=== PATIENT | female | born 2000 | race Caucasian/White ===

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

== ENCOUNTER 2018-02-02 13:25 | Emergency (ER) | payer SELFPAY ==
[~2018-02-02] VITALS: Ht 165.1 cm; Wt 72.6 kg
[~2018-02-02 13:25] MED LIST changes: +ONDA4TAB8 SL
--- NOTE | 2018-02-02 13:46 | ED GU-Female ---
General Chief Complaint: -Female Stated Complaint: FEELS LIKE SHE HAS TO URINTATE ALL THE TIME Source: patient Exam Limitations: no limitations History of Present Illness Date Seen by Provider: Feb 02, 2018 Time Seen by Provider: 13:44 Initial Comments To ER with reports of feeling as though she needs to urinate all the time but being unable to urinate much. This is been ongoing for 3-5 days. She was exposed to both gonorrhea and Chlamydia about one week ago. She states that she did have gonorrhea prior to this for months ago but believes she was cured of it. However she did never get rid of the abdominal pain she was told was associated with the gonorrhea. She denies fevers or chills. She denies flank pain. She does report a whitish vaginal discharge. Timing/Duration: getting worse Severity/Quality: moderate Location: suprapubic Radiation: none Activities at Onset: none Sexual Valeria History: less than 2 months ago Associated Symptoms: dysuria; No fever/chills; lower back pain; No nausea/ vomiting; urinary frequency Allergies and Home Medications Allergies Coded Allergies: No Known Drug Allergies (Unverified , 11/16/17) Home Medications Ciprofloxacin HCl 500 Mg Tablet, 500 MG PO BID Prescribed by: ANDREWS ENGLAND on 12/07/17 0214 Metronidazole 500 Mg Tablet, 500 MG PO QID Prescribed by: ANDREWS ENGLAND on 12/07/174 Naproxen 500 Mg Tablet, 500 MG PO BID Prescribed by: ANDREWS ENGLAND on 11/16/17 0208 Ondansetron 4 Mg Tab.rapdis, 4 MG SL Q4H PRN for NAUSEA/VOMITING-1ST LINE Prescribed by: DAVID ARZOLA on 12/30/172147 Patient Home Medication List Home Medication List Reviewed: Yes Review of Systems Constitutional: see HPI EENTM: see HPI Respiratory: no symptoms reported Cardiovascular: no symptoms reported Genitourinary: see HPI Musculoskeletal: no symptoms reported Skin: no symptoms reported Psychiatric/Neurological: No Symptoms Reported Endocrine: No Symptoms Reported Hematologic/Lymphatic: No Symptoms Reported Past Pqnqinq-Sjowqi-Nokpse Hx Patient Social History Drug of Choice: THC Type Used: Cigars Recent Foreign Travel: No Contact w/Someone Who Travel: No Immunizations Up To Date Tetanus Booster (TDap): Unknown Past Medical History Surgeries: Yes (T&A A CHILD) Adenoidectomy, Tonsillectomy Respiratory: No Cardiac: No Neurological: No Reproductive Disorders: No Female Reproductive Disorders: Denies Sexually Transmitted Disease: Yes (HX OF CHLAMYDIA 2017, PREVIOUSLY TREATED) HIV/AIDS: No Genitourinary: No Gastrointestinal: No Musculoskeletal: No Endocrine: No HEENT: No (S/P T&A) Tonsilitis Cancer: No Psychosocial: No Integumentary: No Blood Disorders: No Physical Exam Vital Signs Vital Signs - First Documented 02/02/18 13:35 Temp 97.0 Pulse 57 Resp 18 B/P (MAP) 120/68 Capillary Refill : Height, Weight, BMI Height: 5'5.00" Weight: 159lbs. oz. 72.329188pq; 21.09 BMI Method:Stated General Appearance: WD/WN, no apparent distress HEENT: PERRL/EOMI, normal ENT inspection Neck: non-tender, full range of motion Respiratory: no respiratory distress, no accessory muscle use Gastrointestinal: normal bowel sounds, non tender, soft Pelvic: normal external exam, no cerv. motion tender, discharge (minimal whitish) Extremities: normal range of motion, non-tender Neurologic/Psychiatric: alert, normal mood/affect, oriented x 3 Skin: normal color, warm/dry Progress/Results/Core Measures Suspected Sepsis SIRS Temperature: Pulse: Respiratory Rate: Laboratory Tests 02/02/18 14:00: White Blood Count 7.6 Blood Pressure / Mean: Laboratory Tests 02/02/18 14:00: Creatinine 0.78, Platelet Count 262, Total Bilirubin 0.6 Results/Orders Lab Results Laboratory Tests Test 02/02/18 13:35 02/02/18 14:00 02/02/18 14:06 Range/Units Urine Color YELLOW Urine Clarity SLIGHTLY CLOUDY Urine pH 6 5-9 Urine Specific [place] 1.025 H 1.016-1.022 Urine Protein 2+ H NEGATIVE Urine Glucose (UA) NEGATIVE NEGATIVE Urine Ketones NEGATIVE NEGATIVE Urine Nitrite NEGATIVE NEGATIVE Urine Bilirubin NEGATIVE NEGATIVE Urine Urobilinogen NORMAL NORMAL MG/DL Urine Leukocyte Esterase 3+ H NEGATIVE Urine RBC (Auto) 2+ H NEGATIVE Urine RBC 0-2 /HPF Urine WBC >100 H /HPF Urine Squamous Epithelial Cells 5-10 /HPF Urine Crystals NONE /LPF Urine Bacteria MODERATE H /HPF Urine Casts NONE /LPF Urine Mucus SMALL H /LPF Urine Culture Indicated YES White Blood Count 7.6 4.3-11.0 10^3/uL Red Blood Count 4.72 4.35-5.85 10^6/uL Hemoglobin 14.6 11.5-16.0 G/DL Hematocrit 41 35-52 % Mean Corpuscular Volume 87 80-99 FL Mean Corpuscular Hemoglobin 31 25-34 PG Mean Corpuscular Hemoglobin Concent 35 32-36 G/DL Red Cell Distribution Width 13.4 10.0-14.5 % Platelet Count 262 130-400 10^3/uL Mean Platelet Volume 9.4 7.4-10.4 FL Neutrophils (%) (Auto) 56 42-75 % Lymphocytes (%) (Auto) 32 12-44 % Monocytes (%) (Auto) 9 0-12 % Eosinophils (%) (Auto) 2 0-10 % Basophils (%) (Auto) 0 0-10 % Neutrophils # (Auto) 4.2 1.8-7.8 X 10^3 Lymphocytes # (Auto) 2.4 1.0-4.0 X 10^3 Monocytes # (Auto) 0.7 0.0-1.0 X 10^3 Eosinophils # (Auto) 0.2 0.0-0.3 10^3/uL Basophils # (Auto) 0.0 0.0-0.1 10^3/uL Sodium Level 140 135-145 MMOL/L Potassium Level 3.9 3.6-5.0 MMOL/L Chloride Level 107 98-107 MMOL/L Carbon Dioxide Level 24 21-32 MMOL/L Anion Gap 9 5-14 MMOL/L Blood Urea Nitrogen 11 7-18 MG/DL Creatinine 0.78 0.60-1.30 MG/DL Estimat Glomerular Filtration Rate > 60 BUN/Creatinine Ratio 14 Calcium Level 9.8 8.5-10.1 MG/DL Corrected Calcium 9.6 8.5-10.1 MG/DL Total Bilirubin 0.6 0.1-1.0 MG/DL Aspartate Amino Transf (AST/SGOT) 18 5-34 U/L Alanine Aminotransferase (ALT/SGPT) 23 0-55 U/L Alkaline Phosphatase 78 40-136 U/L Total Protein 7.2 6.4-8.2 GM/DL Albumin 4.3 3.2-4.5 GM/DL Serum Test, Qualitative NEGATIVE NEGATIVE Micro Results Microbiology 02/02/18 Genital Culture, Resulted Pending 02/02/18 Wet Prep - Final, Resulted My Orders Orders - NATACHA GUAJARDO APRN Ua Culture If Indicated (02/02/18 13:27) Urine Bedside (02/02/18 13:27) Cbc With Automated Diff (02/02/18 13:36) Comprehensive Metabolic Panel (02/02/18 13:36) Wet Prep (02/02/18 13:36) Neisseria Gonorrhea Swab (02/02/18 13:36) Genital Culture (02/02/18 13:36) Chlamydia Trachomatis Swab (02/02/18 13:36) Hcg,Qualitative Serum (02/02/18 13:46) Urine Culture (02/02/18 13:35) Iv/Invasive Line Insertion .on IV start (02/02/18 14:18) Vital Signs/I&O 02/02/18 13:35 Temp 97.0 Pulse 57 Resp 18 B/P (MAP) 120/68 Capillary Refill : Departure Impression Primary Impression: Urinary tract infection Additional Impression: Exposure to STD Disposition: 01 HOME, SELF-CARE Condition: Stable Departure-Patient Inst. Decision time for Depature: 14:34 Referrals: [facility] (PCP/Family) Primary Care Physician Patient Instructions: Urinary Tract Infection, Adult (DC), Sexually- Transmitted Diseases (DC) Add. Discharge Instructions: 1. Antibiotics as directed 2. Return to ER for any concerns 3. Follow-up with your primary care provider next week for recheck. Your Sexual partners should also be tested for STD. Scripts Doxycycline Monohydrate (Doxycycline Monohydrate) 100 Mg Tablet 100 MG PO BID, #14 TAB Prov: NATACHA GUAJARDO APRN 02/02/18 Work/School Note: Work Release Form Date Seen in the Emergency Department: Feb 02, 2018 Return to Work: Feb 03, 2018 NATACHA GUAJARDO APRN Feb 02, 2018 13:46
[2018-02-02 13:48] LABS: BILIRUBIN,URINE NEGATIVE (NEGATIVE); CLARITY,URINE SLIGHTLY CLOUDY; COLOR,URINE YELLOW; GLUCOSE, URINE (UA) NEGATIVE (NEGATIVE); KETONES,URINE NEGATIVE (NEGATIVE); LEUKOCYTE ESTERASE ,URINE 3+ (NEGATIVE); NITRITE,URINE NEGATIVE (NEGATIVE); PH,URINE 6 (5-9); PROTEIN,URINE 2+ (NEGATIVE); UROBILINOGEN,URINE NORMAL (NORMAL)
[2018-02-02 14:08] LABS: BASOPHILS % (AUTO) 0 % (0-10); EOSINOPHILS # (AUTO) 0.2 10^3/uL (0.0-0.3); EOSINOPHILS % (AUTO) 2 % (0-10); HEMATOCRIT 41 % (35-52); HEMOGLOBIN 14.6 G/DL (11.5-16.0); LYMPHOCYTES # (AUTO) 2.4 X 10^3 (1.0-4.0); LYMPHOCYTES % (AUTO) 32 % (12-44); MEAN CORPUSCULAR HEMOGLOBIN 31 PG (25-34); MEAN CORPUSCULAR HGB CONC 35 G/DL (32-36); MEAN CORPUSCULAR VOLUME 87 FL (80-99); MEAN PLATELET VOLUME 9.4 FL (7.4-10.4); MONOCYTES # (AUTO) 0.7 X 10^3 (0.0-1.0); MONOCYTES % (AUTO) 9 % (0-12); NEUTROPHILS # (AUTO) 4.2 X 10^3 (1.8-7.8); NEUTROPHILS % (AUTO) 56 % (42-75); PLATELET COUNT 262 10^3/uL (130-400); RED BLOOD COUNT 4.72 10^6/uL (4.35-5.85); RED CELL DISTRIBUTION WIDTH 13.4 % (10.0-14.5); WHITE BLOOD COUNT 7.6 10^3/uL (4.3-11.0)
[2018-02-02 14:10] LABS: BACTERIA,URINE MODERATE /HPF; RBC,URINE 0-2 /HPF; WBC,URINE >100 /HPF
[2018-02-02 14:30] LABS: ALANINE AMINOTRANSFERASE 23 U/L (0-55); ALBUMIN 4.3 GM/DL (3.2-4.5); ALKALINE PHOSPHATASE 78 U/L (40-136); BILIRUBIN,TOTAL 0.6 MG/DL (0.1-1.0); BUN/CREATININE RATIO 14; CALCIUM 9.8 MG/DL (8.5-10.1); CARBON DIOXIDE 24 MMOL/L (21-32); CHLORIDE 107 MMOL/L (98-107); CREATININE SERUM 0.78 MG/DL (0.60-1.30); GFR ESTIMATED > 60; POTASSIUM 3.9 MMOL/L (3.6-5.0); SODIUM 140 MMOL/L (135-145); TOTAL PROTEIN 7.2 GM/DL (6.4-8.2)
[2018-02-02] MEDS ORDERED: DOXY100T19 PO (14:35)
[2018-02-02] MEDS ORDERED: AZITHROMYCIN 250 MG TAB (ZITHROMAX) PO SCH (14:45)
[2018-02-02] MEDS ORDERED: cefTRIAXone FOR IV USE 1,000 MG in NS (IVPB) 50 ML IV ONE (14:45)
[2018-02-02 14:54] LABS: GLUCOSE 57 MG/DL (70-105)
--- OUTSIDE RECORDS SUMMARY | 2018-02-03 11:25 | XMS REPORT | Continuity of Care Document ---
Author Author [facility] Address Unknown Phone Unavailable Allergies Active Description Code Type Severity Reaction Onset Reported/Identified Relationship to Patient Clinical Status Yes No Known Drug Allergies [id number] Drug Allergy Unknown N/A 11/16/2017 Medications There [...] MIGRAINE UNSPECIFIED WITHOUT INTRACTABLE MIGRAINE 07/14/2010 TONO ACCOUNT DEVELOPMENT ASSOCIATE, MATT A 078.10 VIRAL WARTS UNSPECIFIED 07/14/2010 TONO ACCOUNT DEVELOPMENT ASSOCIATE, MATT A 346.90 MIGRAINE UNSPECIFIED WITHOUT INTRACTABLE [...] MIGRAINE UNSPECIFIED WITHOUT INTRACTABLE MIGRAINE 07/14/2010 RAJOTTE ACCOUNT DEVELOPMENT ASSOCIATE, YOVANA A 078.10 VIRAL WARTS UNSPECIFIED 07/14/2010 RAJOTTE ACCOUNT DEVELOPMENT ASSOCIATE, YOVANA A 346.90 MIGRAINE UNSPECIFIED WITHOUT INTRACTABLE [...] V25.02 CONTRACEPTION - ANY METHOD 12/07/2012 TONO ACCOUNT DEVELOPMENT ASSOCIATE, MATT A V25.02 CONTRACEPTION - ANY METHOD [...] ABSENCE OF OTHER ORGANS 12/12/2017 NATACHA GUAJARDO ACCOUNT DEVELOPMENT ASSOCIATE Ot A54.9 GONOCOCCAL INFECTION, UNSPECIFIED 12/12/2017 NATACHA GUAJARDO ACCOUNT DEVELOPMENT ASSOCIATE Ot F12.10 CANNABIS ABUSE, UNCOMPLICATED 12/12/2017 NATACHA GUAJARDO ACCOUNT DEVELOPMENT ASSOCIATE Ot F17.210 NICOTINE DEPENDENCE, CIGARETTES, UNCOMPL 12/12/2017 NATACHA GUAJARDO ACCOUNT DEVELOPMENT ASSOCIATE Ot R10.32 LEFT LOWER QUADRANT PAIN 12/12/2017 NATACHA GUAJARDO ACCOUNT DEVELOPMENT ASSOCIATE Ot Z86.19 PERSONAL HISTORY OF OTHER INFECTIOUS AND 12/12/2017 NATACHA GUAJARDO ACCOUNT DEVELOPMENT ASSOCIATE Ot Z90.89 ACQUIRED ABSENCE OF OTHER ORGANS [...] OF OTHER INFECTIOUS AND 12/14/2017 NATACHA GUAJARDO ACCOUNT DEVELOPMENT ASSOCIATE Ot Z90.89 ACQUIRED ABSENCE OF OTHER ORGANS 12/18/2017 NATACHA GUAJARDO APRN Ot A54.9 GONOCOCCAL INFECTION, UNSPECIFIED 12/18/2017 NATACHA GUAJARDO ACCOUNT DEVELOPMENT ASSOCIATE Ot F12.10 CANNABIS ABUSE, UNCOMPLICATED 12/18/2017 NATACHA GUAJARDO ACCOUNT DEVELOPMENT ASSOCIATE Ot F17.210 NICOTINE DEPENDENCE, CIGARETTES, UNCOMPL 12/18/2017 NATACHA GUAJARDO APRN Ot R10.32 LEFT LOWER QUADRANT PAIN 12/18/2017 NATACHA GUAJARDO ACCOUNT DEVELOPMENT ASSOCIATE Ot Z86.19 PERSONAL HISTORY OF OTHER INFECTIOUS AND 12/18/2017 NATACHA GUAJARDO ACCOUNT DEVELOPMENT ASSOCIATE Ot Z90.89 ACQUIRED ABSENCE OF OTHER ORGANS 12/30/2017 TERRA FERGUSON, DAVID Sandoval Ot F12.10 CANNABIS ABUSE, UNCOMPLICATED 12/30/2017 TERRA FERGUSON, DAVID Sandoval Ot F17.290 NICOTINE DEPENDENCE, OTHER TOBACCO PRODU 12/30/2017 TERRA FERGUSON, DAVID Sandoval Ot K62.5 HEMORRHAGE OF ANUS AND RECTUM 12/30/2017 DAVID ELLISON MD Ot R10.30 LOWER ABDOMINAL PAIN, UNSPECIFIED 12/30/2017 DAVID ELLISON MD Ot Z86.19 PERSONAL HISTORY OF OTHER INFECTIOUS AND 12/30/2017 DAVID ELLISON MD Ot Z90.89 ACQUIRED ABSENCE OF OTHER ORGANS 01/02/2018 DAVID ELLISON MD Ot F12.10 CANNABIS ABUSE, UNCOMPLICATED 01/02/2018 DAVID ELLISON MD Ot F17.290 NICOTINE DEPENDENCE, OTHER TOBACCO PRODU 01/02/2018 DAVID ELLISON MD Ot K62.5 HEMORRHAGE OF ANUS AND RECTUM 01/02/2018 DAVID ELLISON MD Ot R10.30 LOWER ABDOMINAL PAIN, UNSPECIFIED 01/02/2018 DAVID ELLISNO MD Ot Z86.19 PERSONAL HISTORY OF OTHER INFECTIOUS AND 01/02/2018 DAVID ELLISON MD Ot Z90.89 ACQUIRED ABSENCE OF OTHER ORGANS Procedures Code [place] [address] URINE TEST (IN- HOUSE) 09/15/2012 82094 THERAPUTIC INJ SQ/IM 09/15/2012 J1050 DEPO PROVERA 09/15/2012 J1050 DEPO PROVERA 12/07/2012 50546 THERAPUTIC INJ SQ/IM 12/07/2012 06307 URINE TEST (IN- HOUSE) 12/07/2012 78334 URINE TEST (IN- HOUSE) 02/28/2013 74466 THERAPUTIC INJ SQ/IM 02/28/2013 J1050 DEPO PROVERA 02/28/2013 73232 THERAPUTIC INJ SQ/IM 05/23/2013 J1050 DEPO PROVERA 05/23/2013 49888 URINE TEST (IN- HOUSE) 05/23/2013 J1050 DEPO PROVERA 09/03/2013 61940 THERAPUTIC INJ SQ/IM 09/03/2013 24289 URINE TEST (IN- HOUSE) 09/03/2013 25693 THERAPUTIC INJ SQ/IM 12/12/2013 J1050 DEPO PROVERA 12/12/2013 86932 GC/CHLAM URINE (STATE) 12/12/2013 97344 TEST, URINE (IN- HOUSE) 12/12/2013 92639 URINE TEST (IN- HOUSE) 03/26/2014 73639 THERAPUTIC INJ SQ/IM 03/26/2014 J1050 DEPO PROVERA 03/26/2014 79819 TEST, URINE (IN- HOUSE) 06/21/2014 J1050 DEPO PROVERA 06/21/2014 82060 THERAPUTIC INJ SQ/IM 06/21/2014 J1050 DEPO PROVERA 09/07/2014 54919 TEST, URINE (IN- HOUSE) 09/07/2014 84383 THERAPUTIC INJ SQ/IM 09/07/2014 Results Test Result [...] HSV 1/2 IGG, W/REFL NRG TEST CODE: [id number] NR CLIENT CONTACT: PRABHA VIVAS NR REPORT [...] urinalysis with reflex to culture NO NRG Neisseria gonorrhoeae DNA detection by probe and signal amplification method - 12/30/17 18:56 Gonorrhea amp DNA-urine Not Detected Not Detected Chlamydia DNA amp probe, urine - 12/30/17 18:56 Chlamydia DNA amp probe, urine Not Detected Not Detected Complete blood count (CBC) with automated white [...] specimen by aerobe culture - 12/30/17 19:59 FREE TEXT EXTERNAL PLUS NORMAL ELIZABETH NRG QUANTITY OF GROWTH Moderate Growth NRG Bacteria identification in genital specimen by aerobe culture [id number] NRG Microscopic examination by KEVON preparation - 12/30/17 19:59 Microscopic examination by KEVON preparation TNP NRG Microscopic examination by wet preparation - 12/30/17 19:59 WET PREP RESULTS NO CLUE CELLS OBSERVED NRG Encounters ACCT No. Visit Date/Time Discharge Status Pt. Type Provider Facility Loc./Unit Complaint [id number] 09/18/2014 12:56:00 09/18/2014 23:59:59 CLS Outpatient YOVANA BOWLING APRN [place] [id number] 09/07/2014 10:54:00 09/07/2014 23:59:59 CLS Outpatient SUZAN LYLES DO [id number] 07/29/2014 17:17:00 07/29/2014 23:59:59 CLS Outpatient SUZAN LYLES DO [id number] 06/21/2014 08:56:00 06/21/2014 23:59:59 CLS Outpatient SUZAN LYLES DO [id number] 03/26/2014 14:55:00 03/26/2014 23:59:59 CLS Outpatient SUZAN LYLES DO [id number] 12/12/2013 08:34:00 12/12/2013 23:59:59 CLS Outpatient MATT POWER APRN [id number] 09/03/2013 09:10:00 09/03/2013 23:59:59 CLS Outpatient SUZAN LYLES DO [id number] 05/23/2013 08:29:00 05/23/2013 23:59:59 CLS Outpatient SUZAN LYLES DO [id number] 09/15/2012 16:14:00 09/15/2012 23:59:59 CLS Outpatient [id number] 02/28/2013 07:54:00 Document Registration [id number] 12/07/2012 11:53:00 Document Registration [id number] 05/06/2016 13:06:00 Document Registration [id number] 03/24/2016 10:05:00 Document Registration [id number] 04/06/2016 07:05:00 Document Registration [id number] 2016 14:12:00 Document Registration [id number] 07/29/2017 14:05:00 07/29/2017 23:59:59 CLS Outpatient SUZAN LYLES DO [facility] [id number] 05/24/2017 10:53:00 Document Registration [id number] 05/24/2017 10:00:00 Document Registration [id number] 02/15/2017 10:40:00 Document Registration [id number] 12/30/2017 18:22:00 12/30/2017 21:56:00 DIS Emergency TERRA FERGUSON, DAVID Sandoval [facility] ER STOMACH PAIN [id number] 12/12/2017 13:20:00 12/12/2017 14:22:00 DIS Outpatient NATACHA GUAJARDO APRN [facility] ER ABD PAIN [id number] 12/07/2017 01:19:00 12/07/2017 02:28:00 DIS Outpatient SAMANTA ANDREWS LOCKE K [facility] ER ABD PAIN [id number] 11/16/2017 01:24:00 11/16/2017 02:27:00 DIS Emergency SAMANTA DO, ANDREWS K [facility] ER ABD PAIN, HASN'T HAD PERIOD THIS MONTH [id number] 06/03/2017 21:28:00 06/03/2017 23:59:59 CLS Outpatient NII BETH MD [facility] FNS [id number] 02/18/2017 15:07:00 Document Registration [id number] 02/17/2017 15:09:00 Document Registration [id number] 03/25/2016 18:06:00 Document Registration [id number] 2016 15:10:00 Document Registration
== END 2018-02-02 15:43 | disposition home or self-care (01) ==
LOC: EDUNIT# 13:25 → ER 13:27
DX: N39.0 Urinary tract infection, site not specified (principal); Z20.2 Contact with and (suspected) exposure to infections with a predominantly sexual mode of transmission; Z90.89 Acquired absence of other organs; Z86.19 Personal history of other infectious and parasitic diseases
CPT/HCPCS: 36415; 80053; 81000; 84703; 85025; 87070; 87077; 87088; 87186; 87210; 87491; 87591

== ENCOUNTER 2018-05-15 22:50 | Emergency (ER) | payer SELFPAY ==
[~2018-05-15] VITALS: Ht 165.1 cm; Wt 79.4 kg
[~2018-05-15 22:50] MED LIST changes: +DOXY100T19 PO
--- OUTSIDE RECORDS SUMMARY | 2018-05-15 22:59 | XMS REPORT | Continuity of Care Document ---
Author Author [facility] of [facility] of [facility] Address Unknown Phone Unavailable Allergies Active Description Code Type Severity Reaction Onset Reported/Identified Relationship to Patient Clinical Status Yes No Known Drug Allergies [id number] Drug Allergy Unknown N/A 11/16/2017 Medications There [...] PLACE FOR RECREATION AND SPORT 05/01/2010 LYLES , SUZAN K E886.0 ACCIDENTAL FALL ON SAME [...] MIGRAINE UNSPECIFIED WITHOUT INTRACTABLE MIGRAINE 07/14/2010 TONO ACADEMIC ADVISOR, MATT A 078.10 VIRAL WARTS UNSPECIFIED 07/14/2010 TONO ACADEMIC ADVISOR, MATT A 346.90 MIGRAINE UNSPECIFIED WITHOUT INTRACTABLE [...] MIGRAINE UNSPECIFIED WITHOUT INTRACTABLE MIGRAINE 07/14/2010 RAJOTTE ACADEMIC ADVISOR, YOVANA A 078.10 VIRAL WARTS UNSPECIFIED 07/14/2010 RAJOTTE ACADEMIC ADVISOR, YOVANA A 346.90 MIGRAINE UNSPECIFIED WITHOUT INTRACTABLE MIGRAINE 09/15/2012 V25.9 CONTRACEPTION MANAGEMENT 09/15/2012 V25.9 CONTRACEPTION MANAGEMENT 09/15/2012 V25.9 CONTRACEPTION MANAGEMENT 09/15/2012 RAFAL LOCKE SUZAN K V25.9 CONTRACEPTION MANAGEMENT 09/15/2012 RAFAL LOCKE SUZAN K V25.9 CONTRACEPTION MANAGEMENT 09/15/2012 TONORufus LINDO MATT A V25.9 CONTRACEPTION MANAGEMENT 09/15/2012 LYLES DO, SUAZN K V25.9 CONTRACEPTION MANAGEMENT 09/15/2012 LYLES DO, SUZAN K V25.9 CONTRACEPTION MANAGEMENT 09/15/2012 LYLES DO, SUZAN K V25.9 CONTRACEPTION MANAGEMENT 09/15/2012 LLYES DO, SUZAN K V25.9 CONTRACEPTION MANAGEMENT 09/15/2012 TAWNYA LINDO YOVANA A V25.9 CONTRACEPTION MANAGEMENT 12/07/2012 V25.02 CONTRACEPTION - ANY METHOD 12/07/2012 V25.02 CONTRACEPTION - ANY METHOD 12/07/2012 LYLES DO, SUZAN K V25.02 CONTRACEPTION - ANY METHOD 12/07/2012 LYLES DO, SUZAN K V25.02 CONTRACEPTION - ANY METHOD 12/07/2012 TONO ACADEMIC ADVISOR, MATT A V25.02 CONTRACEPTION - ANY METHOD [...] ABSENCE OF OTHER ORGANS 12/12/2017 NATACHA GUAJARDO ACADEMIC ADVISOR Ot A54.9 GONOCOCCAL INFECTION, UNSPECIFIED 12/12/2017 NATACHA GUAJARDO ACADEMIC ADVISOR Ot F12.10 CANNABIS ABUSE, UNCOMPLICATED 12/12/2017 NATACHA GUAJARDO ACADEMIC ADVISOR Ot F17.210 NICOTINE DEPENDENCE, CIGARETTES, UNCOMPL 12/12/2017 NATACHA GUAJARDO ACADEMIC ADVISOR Ot R10.32 LEFT LOWER QUADRANT PAIN 12/12/2017 NATACHA GUAJARDO ACADEMIC ADVISOR Ot Z86.19 PERSONAL HISTORY OF OTHER INFECTIOUS AND 12/12/2017 NATACHA GUAJARDO ACADEMIC ADVISOR Ot Z90.89 ACQUIRED ABSENCE OF OTHER ORGANS [...] OF OTHER INFECTIOUS AND 12/14/2017 NATACHA GUAJARDO ACADEMIC ADVISOR Ot Z90.89 ACQUIRED ABSENCE OF OTHER ORGANS 12/18/2017 NATACHA GUAJARDO APRN Ot A54.9 GONOCOCCAL INFECTION, UNSPECIFIED 12/18/2017 NATACHA GUAJARDO ACADEMIC ADVISOR Ot F12.10 CANNABIS ABUSE, UNCOMPLICATED 12/18/2017 NATACHA GUAJARDO ACADEMIC ADVISOR Ot F17.210 NICOTINE DEPENDENCE, CIGARETTES, UNCOMPL 12/18/2017 NATACHA GUAJARDO APRN Ot R10.32 LEFT LOWER QUADRANT PAIN 12/18/2017 NATACHA GUAJARDO ACADEMIC ADVISOR Ot Z86.19 PERSONAL HISTORY OF OTHER INFECTIOUS AND 12/18/2017 NATACHA GUAJARDO ACADEMIC ADVISOR Ot Z90.89 ACQUIRED ABSENCE OF OTHER ORGANS [...] R10.30 LOWER ABDOMINAL PAIN, UNSPECIFIED 01/02/2018 DAVID ELLISON MD Ot Z86.19 PERSONAL HISTORY OF OTHER INFECTIOUS AND 01/02/2018 DAVID ELLISON MD Ot Z90.89 ACQUIRED ABSENCE OF OTHER ORGANS 02/06/2018 Ot N39.0 URINARY TRACT INFECTION, SITE NOT SPECIF 02/06/2018 Ot R10.30 LOWER ABDOMINAL PAIN, UNSPECIFIED 02/06/2018 Ot Z20.2 CONTACT W AND EXPOSURE TO INFECT W A SEX 02/06/2018 Ot Z86.19 PERSONAL HISTORY OF OTHER INFECTIOUS AND 02/06/2018 Ot Z90.89 ACQUIRED ABSENCE OF OTHER ORGANS Procedures Code [place] [address] URINE TEST (IN- HOUSE) 09/15/2012 07833 THERAPUTIC INJ SQ/IM 09/15/2012 J1050 DEPO PROVERA 09/15/2012 J1050 DEPO PROVERA 12/07/2012 79488 THERAPUTIC INJ SQ/IM 12/07/2012 28930 URINE TEST (IN- HOUSE) 12/07/2012 66144 URINE TEST (IN- HOUSE) 02/28/2013 49300 THERAPUTIC INJ SQ/IM 02/28/2013 J1050 DEPO PROVERA 02/28/2013 41240 THERAPUTIC INJ SQ/IM 05/23/2013 J1050 DEPO PROVERA 05/23/2013 17123 URINE TEST (IN- HOUSE) 05/23/2013 J1050 DEPO PROVERA 09/03/2013 92260 THERAPUTIC INJ SQ/IM 09/03/2013 24556 URINE TEST (IN- HOUSE) 09/03/2013 11250 THERAPUTIC INJ SQ/IM 12/12/2013 J1050 DEPO PROVERA 12/12/2013 66134 GC/CHLAM URINE ([facility]) 12/12/2013 78356 TEST, URINE (IN- HOUSE) 12/12/2013 11842 URINE TEST (IN- HOUSE) 03/26/2014 38866 THERAPUTIC INJ SQ/IM 03/26/2014 J1050 DEPO PROVERA 03/26/2014 99429 TEST, URINE (IN- HOUSE) 06/21/2014 J1050 DEPO PROVERA 06/21/2014 06338 THERAPUTIC INJ SQ/IM 06/21/2014 J1050 DEPO PROVERA 09/07/2014 37189 TEST, URINE (IN- HOUSE) 09/07/2014 14282 THERAPUTIC INJ SQ/IM 09/07/2014 Results Test Result [...] HSV 1/2 IGG, W/REFL NRG TEST CODE: [id number] NR CLIENT CONTACT: PRABHA VIVAS NR REPORT [...] identification in genital specimen by aerobe culture [id number] NRG Microscopic examination by KEVON preparation - 12/30/17 19:59 Microscopic examination by KEVON preparation TNP NRG Microscopic examination by wet preparation - 12/30/17 19:59 WET PREP RESULTS NO CLUE CELLS OBSERVED NRG Encounters ACCT No. Visit Date/Time Discharge Status Pt. Type Provider Facility Loc./Unit Complaint [id number] 09/18/2014 12:56:00 09/18/2014 23:59:59 CLS Outpatient ELROYNataly YOVANA LINDO [id number] 09/07/2014 10:54:00 09/07/2014 23:59:59 CLS Outpatient SUZAN LYLES DO [id number] 07/29/2014 17:17:00 07/29/2014 23:59:59 CLS Outpatient SUZAN LYLES DO [id number] 06/21/2014 08:56:00 06/21/2014 23:59:59 CLS Outpatient SUZAN LYLES DO [id number] 03/26/2014 14:55:00 03/26/2014 23:59:59 CLS Outpatient SUZAN LYLES DO [id number] 12/12/2013 08:34:00 12/12/2013 23:59:59 CLS Outpatient MATT POWER APRN [id number] 09/03/2013 09:10:00 09/03/2013 23:59:59 CLS Outpatient SUZAN LYLES DO [id number] 05/23/2013 08:29:00 05/23/2013 23:59:59 CLS Outpatient SUZAN LYLES DO [id number] 09/15/2012 16:14:00 09/15/2012 23:59:59 CLS Outpatient [id number] 02/28/2013 07:54:00 Document Registration [id number] 12/07/2012 11:53:00 Document Registration [id number] 05/06/2016 13:06:00 Document Registration [id number] 03/24/2016 10:05:00 Document Registration [id number] 04/06/2016 07:05:00 Document Registration [id number] 2016 14:12:00 Document Registration [id number] 07/29/2017 14:05:00 07/29/2017 23:59:59 CLS Outpatient SUZAN LYLES DO [facility] [id number] 05/24/2017 10:53:00 Document Registration [id number] 05/24/2017 10:00:00 Document Registration [id number] 02/15/2017 10:40:00 Document Registration [id number] 12/30/2017 18:22:00 12/30/2017 21:56:00 DIS Emergency TERRA FERGUSON, DAVID Sandoval Via [facility] ER STOMACH PAIN [id number] 12/12/2017 13:20:00 12/12/2017 14:22:00 DIS Outpatient NATACHA GUAJARDO ACADEMIC ADVISOR [facility] ER ABD PAIN [id number] 12/07/2017 01:19:00 12/07/2017 02:28:00 DIS Outpatient ANDREWS ENGLAND DO [facility] ER ABD PAIN [id number] 11/16/2017 01:24:00 11/16/2017 02:27:00 DIS Emergency ANDREWS ENGLAND DO Via [facility] ER ABD PAIN, HASN'T HAD PERIOD THIS MONTH [id number] 06/03/2017 21:28:00 06/03/2017 23:59:59 CLS Outpatient KIRIT FERGUSON, NII Nolen [facility] FNS [id number] 02/02/2018 13:27:00 Document Registration [id number] 02/18/2017 15:07:00 Document Registration [id number] 02/17/2017 15:09:00 Document Registration [id number] 03/25/2016 18:06:00 Document Registration [id number] 2016 15:10:00 Document Registration
[2018-05-16 00:12] LABS: BASOPHILS % (AUTO) 0 % (0-10); EOSINOPHILS # (AUTO) 0.3 10^3/uL (0.0-0.3); EOSINOPHILS % (AUTO) 3 % (0-10); HEMATOCRIT 47 % (35-52); HEMOGLOBIN 16.1 G/DL (11.5-16.0); LYMPHOCYTES # (AUTO) 3.7 X 10^3 (1.0-4.0); LYMPHOCYTES % (AUTO) 40 % (12-44); MEAN CORPUSCULAR HEMOGLOBIN 30 PG (25-34); MEAN CORPUSCULAR HGB CONC 35 G/DL (32-36); MEAN CORPUSCULAR VOLUME 88 FL (80-99); MEAN PLATELET VOLUME 9.9 FL (7.4-10.4); MONOCYTES # (AUTO) 0.8 X 10^3 (0.0-1.0); MONOCYTES % (AUTO) 8 % (0-12); NEUTROPHILS # (AUTO) 4.6 X 10^3 (1.8-7.8); NEUTROPHILS % (AUTO) 49 % (42-75); PLATELET COUNT 235 10^3/uL (130-400); RED BLOOD COUNT 5.29 10^6/uL (4.35-5.85); RED CELL DISTRIBUTION WIDTH 13.1 % (10.0-14.5); WHITE BLOOD COUNT 9.4 10^3/uL (4.3-11.0)
--- NOTE | 2018-05-16 00:20 | ED GU-Female ---
General Chief Complaint: -Female Stated Complaint: POSS 7 WKS PREG/VAG BLEEDING AND CRAMPING Source: patient History of Present Illness Date Seen by Provider: May 15, 2018 Time Seen by Provider: 23:45 Initial Comments PT ARRIVES VIA POV FROM HOME PT STATES SHE THINKS SHE IS 7 WEEKS . LMP 03/20/18--NORMAL TIME BUT ONLY LASTED 1 DAY. HAD + HOME TEST LAST WEEK HAS NOT ATTEMPTED TO ESTABLISH WITH ANYONE FOR OB CARE AND STATES SHE DOES NOT HAVE A PCP PT STATES SHE WOKE UP FROM A NAP AT 2100 TONIGHT, AND WENT TO THE BATHROOM AND HAD BLEEDING SIMILAR TO A PERIOD, THEN STARTED HAVING LOWER ABDOMINAL PAIN-- STATES PAIN IS CONSTANT AND NOT BAD MENSTRUAL CRAMPS. HAS NOT USED ANY PADS OR TAMPONS, AND IS NOT BLEEDING NOW. NO NAUSEA/VOMITING NO FEVER NO PROBLEMS URINATING NO VAGINAL DISCHARGE. PT STATES SHE HAS HAD 1 PRIOR , WITH MISCARRIAGE IN FIRST TRIMESTER. NO D&C DONE. NO CONTROL PT HAD BEEN ON DEPO-PROVERA FOR 5 YEARS, BUT HAS NOT HAD IT FOR A YEAR, PERIODS HAVE BEEN "IRREGULAR" SINCE THEN . 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 PCP: STATES NONE, BUT IS ESTABLISHED AT [facility] MAINTENANCE TECHNICIAN: NONE Allergies and Home Medications Allergies Coded Allergies: No Known Drug Allergies (Unverified , 11/16/17) Home Medications Ciprofloxacin HCl 500 Mg Tablet, 500 MG PO BID Prescribed by: ANDREWS ENGLAND on 12/07/17 0214 Doxycycline Monohydrate 100 Mg Tablet, 100 MG PO BID Prescribed by: NATACHA GUAJARDO on 02/02/18 1435 Metronidazole 500 Mg Tablet, 500 MG PO QID Prescribed by: ANDREWS ENGLAND on 12/07/17 0214 Naproxen 500 Mg Tablet, 500 MG PO BID Prescribed by: ANDREWS ENGLAND on 11/16/17 0208 Ondansetron 4 Mg Tab.rapdis, 4 MG SL Q4H PRN for NAUSEA/VOMITING-1ST LINE Prescribed by: DAVID ARZOLA on 12/30/17 2148 Patient Home Medication List Home Medication List Reviewed: Yes Review of Systems Review of Systems Constitutional: no symptoms reported Respiratory: no symptoms reported Cardiovascular: no symptoms reported Gastrointestinal: see HPI, abdominal pain Genitourinary: see HPI : Yes (PER PT SHE HAD A + HOME TEST LAST WEEK) LMP: Mar 20, 2018 Musculoskeletal: no symptoms reported Skin: no symptoms reported Psychiatric/Neurological: No Symptoms Reported Endocrine: No Symptoms Reported Hematologic/Lymphatic: No Symptoms Reported Past Rqfpven-Aohfpg-Zsvgyz Hx Patient Social History Alcohol Use: Occasionally Uses Recreational Drug Use: Yes (THC) Drug of Choice: THC Smoking Status: Current Everyday Smoker Type Used: Cigars Recent Foreign Travel: No Contact w/Someone Who Travel: No Recent Hopitalizations: No Immunizations Up To Date Tetanus Booster (TDap): Unknown Past Medical History Surgeries: Yes (T&A A CHILD) Adenoidectomy, Tonsillectomy Respiratory: No Cardiac: No Neurological: No Hx : 1 Hx Para: 0 Hx Total # of Abortions (Sp): 1 (SPONTANEOUS, PER PT) Reproductive Disorders: No Female Reproductive Disorders: Denies Sexually Transmitted Disease: Yes (HX OF CHLAMYDIA 2016, PREVIOUSLY TREATED) HIV/AIDS: No Genitourinary: No Gastrointestinal: No Musculoskeletal: No Endocrine: No HEENT: Yes (S/P T&A) Tonsilitis Cancer: No Psychosocial: No Integumentary: No Blood Disorders: No Physical Exam Vital Signs Vital Signs - First Documented 05/15/18 05/16/18 23:33 02:01 Temp 100.7 Pulse 90 Resp 16 B/P (MAP) 114/72 Pulse Ox 98 O2 Delivery Room Air Capillary Refill : Height, Weight, BMI Height: 5'5.00" Weight: 160lbs. oz. 72.814903en; 21.09 BMI Method:Stated General Appearance: WD/WN, no apparent distress, other (WALKS UPRIGHT AND MOVES WITHOUT DIFFICULTY. TEXTING/PLAYING ON PHONE THROUGHOUT EXAM. MULTIPLE FRIENDS HERE IN ER WITH PT. 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 ) Skin: normal color, warm/dry Progress/Results/Core Measures Suspected Sepsis SIRS Temperature: Pulse: Respiratory Rate: Laboratory Tests 05/15/18 23:59: White Blood Count 9.4 Blood Pressure / Mean: Laboratory Tests 05/15/18 23:59: Creatinine 0.79, Platelet Count 235 Results/Orders Lab Results Laboratory Tests Test 05/15/18 23:59 05/16/18 00:40 Range/Units White Blood Count 9.4 4.3-11.0 10^3/uL Red Blood Count 5.29 4.35-5.85 10^6/uL Hemoglobin 16.1 H 11.5-16.0 G/DL Hematocrit 47 35-52 % Mean Corpuscular Volume 88 80-99 FL Mean Corpuscular Hemoglobin 30 25-34 PG Mean Corpuscular Hemoglobin Concent 35 32-36 G/DL Red Cell Distribution Width 13.1 10.0-14.5 % Platelet Count 235 130-400 10^3/uL Mean Platelet Volume 9.9 7.4-10.4 FL Neutrophils (%) (Auto) 49 42-75 % Lymphocytes (%) (Auto) 40 12-44 % Monocytes (%) (Auto) 8 0-12 % Eosinophils (%) (Auto) 3 0-10 % Basophils (%) (Auto) 0 0-10 % Neutrophils # (Auto) 4.6 1.8-7.8 X 10^3 Lymphocytes # (Auto) 3.7 1.0-4.0 X 10^3 Monocytes # (Auto) 0.8 0.0-1.0 X 10^3 Eosinophils # (Auto) 0.3 0.0-0.3 10^3/uL Basophils # (Auto) 0.0 0.0-0.1 10^3/uL Sodium Level 141 135-145 MMOL/L Potassium Level 3.4 L 3.6-5.0 MMOL/L Chloride Level 111 H 98-107 MMOL/L Carbon Dioxide Level 17 L 21-32 MMOL/L Anion Gap 13 5-14 MMOL/L Blood Urea Nitrogen 8 7-18 MG/DL Creatinine 0.79 0.60-1.30 MG/DL Estimat Glomerular Filtration Rate > 60 BUN/Creatinine Ratio 10 Glucose Level 88 70-105 MG/DL Calcium Level 9.8 8.5-10.1 MG/DL Human Chorionic Gonadotropin, Quant < 5 <5 MIU/ML Urine Color YELLOW Urine Clarity CLEAR Urine pH 6 5-9 Urine Specific Foreman 1.010 L 1.016-1.022 Urine Protein NEGATIVE NEGATIVE Urine Glucose (UA) NEGATIVE NEGATIVE Urine Ketones NEGATIVE NEGATIVE Urine Nitrite NEGATIVE NEGATIVE Urine Bilirubin NEGATIVE NEGATIVE Urine Urobilinogen NORMAL NORMAL MG/DL Urine Leukocyte Esterase 1+ H NEGATIVE Urine RBC (Auto) 1+ H NEGATIVE Urine RBC NONE /HPF Urine WBC 2-5 /HPF Urine Squamous Epithelial Cells 5-10 /HPF Urine Crystals NONE /LPF Urine Bacteria FEW H /HPF Urine Casts NONE /LPF Urine Mucus NEGATIVE /LPF Urine Culture Indicated NO Urine Opiates Screen NEGATIVE NEGATIVE Urine Oxycodone Screen NEGATIVE NEGATIVE Urine Methadone Screen NEGATIVE NEGATIVE Urine Propoxyphene Screen NEGATIVE NEGATIVE Urine Barbiturates Screen NEGATIVE NEGATIVE Ur Tricyclic Antidepressants Screen NEGATIVE NEGATIVE Urine Phencyclidine Screen NEGATIVE NEGATIVE Urine Amphetamines Screen NEGATIVE NEGATIVE Urine Methamphetamines Screen NEGATIVE NEGATIVE Urine Benzodiazepines Screen NEGATIVE NEGATIVE Urine Cocaine Screen NEGATIVE NEGATIVE Urine Cannabinoids Screen POSITIVE H NEGATIVE My Orders Orders - ANDREWS ENGLAND DO Basic Metabolic Panel (05/15/18 23:51) Cbc With Automated Diff (05/15/18 23:51) Hcg,Quantitative (05/15/18 23:51) Ua Culture If Indicated (05/15/18 23:51) Abo Rh Type (05/15/18 23:51) Straight Cath For Spec.-Adult (05/15/18 23:51) Drug Screen Stat (Urine) (05/16/18 02:04) Vital Signs/I&O 05/15/18 05/16/18 23:33 02:01 Temp 100.7 98.2 Pulse 90 76 Resp 16 18 B/P (MAP) 114/72 Pulse Ox 98 98 O2 Delivery Room Air Capillary Refill : Progress Note : Progress Note NO ULTRASOUND SERVICES AVAILABLE AFTER HOURS STATES SHE DID HAVE A LITTLE BLEEDING WHEN SHE WIPED PRIOR TO DISMISSAL. UNABLE TO DETECT FHT'S WITH DOPPLER. QUANT BETA HCG IS < 5. Departure Impression Primary Impression: Irregular menstrual bleeding Additional Impression: Dysmenorrhea Disposition: HOME, SELF-CARE Condition: Stable Departure-Patient Inst. Referrals: [facility] (PCP/Family) Primary Care Physician Patient Instructions: IRREGULAR VAGINAL BLEEDING, Menstrual Cramps (DC) Add. Discharge Instructions: HOME, REST LOTS OF FLUIDS TYLENOL AND MOTRIN NEEDED FOR PAIN FOLLOW UP WITH DRMaira OF CHOICE NEEDED All discharge instructions reviewed with patient and/or family. Voiced understanding. ANDREWS ENGLAND DO May 16, 2018 00:20
[2018-05-16 00:34] LABS: BUN/CREATININE RATIO 10; CALCIUM 9.8 MG/DL (8.5-10.1); CARBON DIOXIDE 17 MMOL/L (21-32); CHLORIDE 111 MMOL/L (98-107); CREATININE SERUM 0.79 MG/DL (0.60-1.30); GFR ESTIMATED > 60; GLUCOSE 88 MG/DL (70-105); POTASSIUM 3.4 MMOL/L (3.6-5.0); SODIUM 141 MMOL/L (135-145)
[2018-05-16 00:47] LABS: BILIRUBIN,URINE NEGATIVE (NEGATIVE); CLARITY,URINE CLEAR; COLOR,URINE YELLOW; GLUCOSE, URINE (UA) NEGATIVE (NEGATIVE); KETONES,URINE NEGATIVE (NEGATIVE); LEUKOCYTE ESTERASE ,URINE 1+ (NEGATIVE); NITRITE,URINE NEGATIVE (NEGATIVE); PH,URINE 6 (5-9); PROTEIN,URINE NEGATIVE (NEGATIVE); UROBILINOGEN,URINE NORMAL (NORMAL)
[2018-05-16 01:17] LABS: BACTERIA,URINE FEW /HPF
[2018-05-16 02:20] LABS: AMPHETAMINE SCREEN, URINE NEGATIVE (NEGATIVE); BARBITURATE SCREEN URINE NEGATIVE (NEGATIVE); BENZODIAZEPINES SCREEN URINE NEGATIVE (NEGATIVE); CANNABINOID SCREEN, URINE POSITIVE (NEGATIVE); COCAINE SCREEN URINE NEGATIVE (NEGATIVE); METHADONE STAT NEGATIVE (NEGATIVE); METHAMPHETAMINE SCREEN URINE S NEGATIVE (NEGATIVE); OPIATE SCREEN URINE NEGATIVE (NEGATIVE); OXYCODONE STAT NEGATIVE (NEGATIVE); PROPOXYPHENE STAT NEGATIVE (NEGATIVE); TRICYCLIC ANTIDEPRESSANTS SCRE NEGATIVE (NEGATIVE)
== END 2018-05-16 02:01 | disposition home or self-care (01) ==
LOC: EDUNIT# 22:50 → ER 22:52
DX: O99.89 Other specified diseases and conditions complicating pregnancy, childbirth and the puerperium (principal); N94.6 Dysmenorrhea, unspecified; N92.6 Irregular menstruation, unspecified; O99.321 Drug use complicating pregnancy, first trimester; F12.10 Cannabis abuse, uncomplicated; O99.331 Smoking (tobacco) complicating pregnancy, first trimester; F17.290 Nicotine dependence, other tobacco product, uncomplicated; Z3A.01 Less than 8 weeks gestation of pregnancy; Z90.89 Acquired absence of other organs; Z86.19 Personal history of other infectious and parasitic diseases
CPT/HCPCS: 36415; 51701; 80048; 80306; 81000; 84702; 85025; 86900; 86901

== ENCOUNTER 2018-08-16 16:06 | Emergency (ER) | payer SELFPAY ==
[~2018-08-16] VITALS: Ht 165.1 cm; Wt 72.6 kg
--- NOTE | 2018-08-16 16:44 | ED GI ---
General Chief Complaint: Abdominal/GI Problems Stated Complaint: NAUSEA,DIARRHEA Nursing Triage Note: PT CO OF NAUSEA AND DIARRHEA FOR A COUPLE DAYS (3) PT STATES FEELING BETTER TODAY, EATING FRIED CHICKEN CHUNKS UPON ENTERING ROOM AND DRINKING WATER. PT STATES NEEDS A WORK NOTE AND CANT AFFORD COPAY AT DR AND I DONT WANT TO LOOSE MY JOB Source of Information: Patient Exam Limitations: No Limitations History of Present Illness Date Seen by Provider: Aug 16, 2018 Time Seen by Provider: 16:34 Initial Comments Patient reports having nausea, vomiting, and diarrhea for the past 3 days. She is now feeling better. She declines treatment and states she is no longer nauseated. She admits she is simply here to obtain a note for work. Allergies and Home Medications Allergies Coded Allergies: No Known Drug Allergies (Unverified , 11/16/17) Patient Home Medication List Home Medication List Reviewed: Yes Review of Systems Review of Systems Constitutional: no symptoms reported EENTM: No Symptoms Reported Respiratory: No Symptoms Reported Cardiovascular: No Symptoms Reported Gastrointestinal: See HPI Genitourinary: No Symptoms Reported Musculoskeletal: no symptoms reported Skin: no symptoms reported Psychiatric/Neurological: No Symptoms Reported Endocrine: No Symptoms Reported Past Pzzchzs-Mdgwjv-Egcshj Hx Past Med/Social Hx: Reviewed Nursing Past Med/Soc Hx Patient Social History Drug of Choice: MARIJUANA Type Used: Cigars 2nd Hand Smoke Exposure: Yes Recent Foreign Travel: No Contact w/Someone Who Travel: No Recent Infectious Disease Expo: No Recent Hopitalizations: No Ebola Symptoms: Denies Symptoms Listed Immunizations Up To Date Tetanus Booster (TDap): Unknown Seasonal Allergies Seasonal Allergies: No Past Medical History Surgeries: Yes (T&A A CHILD) Adenoidectomy, Tonsillectomy Respiratory: No Cardiac: No Neurological: No Reproductive Disorders: No Female Reproductive Disorders: Denies Sexually Transmitted Disease: Yes (HX OF CHLAMYDIA 2017, PREVIOUSLY TREATED) HIV/AIDS: No Genitourinary: No Gastrointestinal: No Musculoskeletal: No Endocrine: No HEENT: Yes (S/P T&A) Tonsilitis Cancer: No Psychosocial: No Integumentary: No Blood Disorders: No Physical Exam Vital Signs Vital Signs - First Documented 08/16/18 08/16/18 16:22 16:48 Temp 97.9 Pulse 72 Resp 18 B/P (MAP) 111/75 Pulse Ox 99 Capillary Refill : Height/Weight/BMI Height: 5'5.00" Weight: 160lbs. oz. 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 Decision time for Depature: 16:40 Referrals: [facility] [place] Primary Care Physician Add. Discharge Instructions: Drink plenty of clear liquids. Gradually advance your diet with small quantities of bland food as tolerated. Return to care if symptoms worsen. All discharge instructions reviewed with patient and/or family. Voiced understanding. Work/School Note: Work Release Form Date Seen in the Emergency Department: Aug 16, 2018 Return to Work: Aug 17, 2018 Restrictions: Return-No Vomiting(24hrs) DAVID ELLISON MD Aug 16, 2018 16:44
--- OUTSIDE RECORDS SUMMARY | 2018-08-16 20:45 | XMS REPORT ---
Author Author CLARISSA CEDILLO [facility] Address [address] [place] [address] Care Team Providers Care Criminal Profiler Name Role Phone CLARISSA CEDILLO Unavailable PROBLEMS Type Condition ICD9-CM Code UNN91-CQ Code Onset Dates Condition Status SNOMED Code Problem Costochondritis M94.0 Active 83974326 Problem Gastritis, presence of bleeding unspecified, unspecified chronicity, unspecified gastritis type K29.70 Active 7049884 Problem Hematochezia K92.1 Active 302243501 Problem Routine gynecological examination Z01.419 Active 584699495 Problem Sore throat J02.9 Active 742591874 Problem Amenorrhea due to Depo Provera N91.2 Active 12738494 Problem Subacute vaginitis N76.1 Active 59043787061495650 Problem History of UTI Z87.440 Active 4465859227741 Problem Postprandial abdominal pain in left upper quadrant R10.12 Active 267225287 Problem Abdominal pain, unspecified location R10.9 Active 80488838 Problem Hematemesis K92.0 Active 7435691 ALLERGIES No Information ENCOUNTERS Encounter Location Date Diagnosis [facility] [id number] [place] [address]10- 2973 May, [facility] [id number] [place] [address] 94842- 4918 May, Sexually transmitted disease exposure Z20.2 [facility] [id number] [place] [phone] Jul, Cough in adult R05 and Acute nasopharyngitis J00 [facility] [id number] [place] [address] 15676- 2043 May, Routine screening for STI (sexually transmitted infection) Z11.3 ; Amenorrhea due to Depo Provera N91.2 and Encounter for counseling regarding contraception Z30.09 [facility] [address] [address] Feb, [facility] [id number] [place] [address] 24469- 2928 Feb, [facility] [id number] [place] [address] 75857- 7048 Jan, Routine screening for STI (sexually transmitted infection) Z11.3 [facility] [id number] [place] [address] 74959- 2919 Nov, Encounter for Depo-Provera contraception Z30.42 [facility] [id number] [place] [address] 30472- 7167 Aug, Routine screening for STI (sexually transmitted infection) Z11.3 [facility] [id number] [place] [address] 83657- 7913 Aug, Routine screening for STI (sexually transmitted infection) Z11.3 [facility] [id number] [place] [address] 07242- 7804 Aug, [facility] [id number] [place] [address] 09197- 7408 Aug, Routine screening for STI (sexually transmitted infection) Z11.3 ; Encounter for Depo-Provera contraception Z30.42 ; Depot contraception Z30.40 and Encounter for counseling regarding contraception Z30.09 [facility] [address] [address] Jul, Pharyngitis due to other organism J02.8 [facility] [id number] [place] [address] 21514- 1331 May, Encounter for Depo-Provera contraception Z30.42 [facility] [address] [place] [address] 86769- 6964 May, [facility] [id number] [place] [address] 43915- 8392 Apr, Subacute vaginitis N76.1 [facility] [id number] [place] [address] 20386- 3749 Mar, [facility] [id number] [place] [address] 88961- 2381 Mar, Hematochezia K92.1 [facility] [address] [address]- [address] Mar, [facility] [id number] [place] [address] 38587- 2383 Mar, Abdominal pain, unspecified location R10.9 ; Hematochezia K92.1 ; Hematemesis K92.0 and History of UTI Z87.440 [facility] [id number] [place] [address] 97769- 8274 Feb, Hematochezia K92.1 ; Encounter for Depo-Provera contraception Z30.42 ; Postprandial abdominal pain in left upper quadrant R10.12 ; Postprandial abdominal pain in right upper quadrant R10.11 and Gastritis, presence of bleeding unspecified, unspecified chronicity, unspecified gastritis type K29.70 [place] [id number] [place] [address] 59247- 9610 Jan, Costochondritis M94.0 and Sore throat J02.9 [facility] [id number] [place] [address] 12815- 0533 Dec, Rectal bleeding K62.5 [facility] [address] [place] [address] 54278- 4306 Dec, [facility] [id number] [place] [address] 88624- 7999 Nov, [facility] [address] [place] [address] 41571- 0513 Nov, Routine gynecological examination Z01.419 ; Encounter for surveillance of injectable contraceptive Z30.42 and Encounter for Depo-Provera contraception Z30.42 [facility] [address] [address] 09 Aug, 2015 Encounter for Depo-Provera contraception Z30.42 [facility] [address] [place] [address] 941211- 8139 09 May, 2015 Encounter for Depo-Provera contraception Z30.42 [facility] [address] [place] [address] 812397- 2194 Feb, Unspecified contraceptive management V25.9 [facility] [address] [place] [address] 489074- 6004 Dec, TDAP DX V06.1 [facility] [address] [place] [address] 925809- 1743 Nov, Encounter for contraceptive management V25.9 [facility] [id number] [place] [address] 38698- 1197 Sep, [facility] [address] [place] [address] 74600- 9869 Sep, [facility] [id number] [place] [address] 16368- 5105 Aug, [facility] [address] [place] [address] 63282- 3164 Aug, [facility] [address] [place] [address] 548243- 1139 Jul, [facility] [address] [address] Jul, [facility] [id number] [place] [address] 89487- 0184 Jun, [facility] [address] Jun, [facility] [address] [place] [address] 284926- 5727 Mar, [facility] [address] [facility] [id number], [place] [address] Mar, [facility] [address] [facility] [id number], [place] [address] Dec, [facility] [address] [facility] [id number], [place] [address] Dec, [facility] [address] [facility] [id number], [place] [address] Nov, [facility] [address] [facility] [id number] [place] [address] Nov, [facility] [address] [facility] [id number], [place] [address] Aug, [facility] [address] [facility] [id number], [place] [address] Aug, [facility] [address] [facility] [id number], [place] [address] May, [facility] [address] [facility] [id number] May, [facility] [id number] [address] Feb, [facility] [id number] [address] Nov, [facility] [address] [facility] [id number], [place] [address] Aug, [facility] [address] [facility] [id number], [place] [address] Apr, [facility] [address] [facility] [id number], [place] [address] Apr, [facility] [id number], [place] [address] Apr, IMMUNIZATIONS No Known Immunizations SOCIAL HISTORY Never Assessed REASON FOR VISIT Requests return call PLAN OF CARE VITAL SIGNS MEDICATIONS Unknown Medications RESULTS No Results PROCEDURES No Known procedures INSTRUCTIONS MEDICATIONS ADMINISTERED No Known Medications MEDICAL (GENERAL) HISTORY Type Description Date Medical History Gonorrhea Positive-Chlamydia -Treated Medical History Chlamydia infection Medical History Chlamydia infection Surgical History T&A
--- OUTSIDE RECORDS SUMMARY | 2018-08-16 20:45 | XMS REPORT ---
Author Author CLARISSA CEDILLO [facility] Address [address] [place] [address] Care Team Providers Care Infrastructure Project Manager Name Role Phone CLARISSA CEDILLO Unavailable PROBLEMS Type Condition ICD9-CM Code RXJ21-TE Code Onset Dates Condition Status SNOMED Code Problem Costochondritis M94.0 Active 63025661 Problem Gastritis, presence of bleeding unspecified, unspecified chronicity, unspecified gastritis type K29.70 Active 4045648 Problem Hematochezia K92.1 Active 265442145 Problem Routine gynecological examination Z01.419 Active 433645669 Problem Sore throat J02.9 Active 264730372 Problem Amenorrhea due to Depo Provera N91.2 Active 89862997 Problem Subacute vaginitis N76.1 Active [id number] Problem History of UTI Z87.440 Active 4091458104567 Problem Postprandial abdominal pain in left upper quadrant R10.12 Active 210455218 Problem Abdominal pain, unspecified location R10.9 Active 38793358 Problem Hematemesis K92.0 Active 1207948 ALLERGIES No Known Allergies ENCOUNTERS Encounter Location Date Diagnosis [facility] [id number] [place] [address] 58[address] May, Sexually transmitted disease exposure Z20.2 [facility] [id number] [place] [address] 09 Jul, 2017 Cough in adult R05 and Acute nasopharyngitis J00 [facility] [id number] [place] [address] 66589- 3381 05 May, 2017 Routine screening for STI (sexually transmitted infection) Z11.3 ; Amenorrhea due to Depo Provera N91.2 and Encounter for counseling regarding contraception Z30.09 [facility] [id number] [place] [address]57[address] 4049 Feb, [facility] [address] [address] Feb, [facility] [id number] [address] Jan, Routine screening for STI (sexually transmitted infection) Z11.3 [facility] [address] [address] Nov, Encounter for Depo-Provera contraception Z30.42 [facility] [id number] [place] [address] 81738- 6074 Aug, Routine screening for STI (sexually transmitted infection) Z11.3 [facility] [id number] [address] Aug, Routine screening for STI (sexually transmitted infection) Z11.3 [place] [id number] [address] Aug, [facility] [address] [address] Aug, Routine screening for STI (sexually transmitted infection) Z11.3 ; Encounter for Depo-Provera contraception Z30.42 ; Depot contraception Z30.40 and Encounter for counseling regarding contraception Z30.09 [facility] [id number], [place] [address] Jul, Pharyngitis due to other organism J02.8 [facility] [id number], [place] [address] May, Encounter for Depo-Provera contraception Z30.42 [facility] [address] [address] May, [facility] [id number] [address] Apr, Subacute vaginitis N76.1 [facility] [id number] [place] [address] 11066- 1544 Mar, [place] [id number] [place] [address] 02396- 2922 Mar, Hematochezia K92.1 [place] [id number] [place] [address] 90378- 0316 Mar, [place] [address] [address] Mar, Abdominal pain, unspecified location R10.9 ; Hematochezia K92.1 ; Hematemesis K92.0 and History of UTI Z87.440 [place] [id number] [place] [address] 79964- 1636 Feb, Hematochezia K92.1 ; Encounter for Depo-Provera contraception Z30.42 ; Postprandial abdominal pain in left upper quadrant R10.12 ; Postprandial abdominal pain in right upper quadrant R10.11 and Gastritis, presence of bleeding unspecified, unspecified chronicity, unspecified gastritis type K29.70 [place] [id number] [place] [address] 88210- 9417 Jan, Costochondritis M94.0 and Sore throat J02.9 [place] [id number] [place] [address] 52670- 9281 Dec, Rectal bleeding K62.5 [place] [id number] [place] [address] 31784- 4086 Dec, [place] [id number] [place] [address] 11033- 6288 Nov, [place] [address] [address]- [address]782 Nov, Routine gynecological examination Z01.419 ; Encounter for surveillance of injectable contraceptive Z30.42 and Encounter for Depo-Provera contraception Z30.42 [place] [id number] [place] [address] 60709- 7623 Aug, Encounter for Depo-Provera contraception Z30.42 [facility] [address] [facility] [id number] [address] May, Encounter for Depo-Provera contraception Z30.42 [facility] [address] [facility] [id number], [place] [address] 08 Feb, 2015 Unspecified contraceptive management V25.9 [facility] [address] [facility] [id number] [place] [address] 53841- 8578 Dec, TDAP DX V06.1 [facility] [id number] [place] [address] 964789- 7335 Nov, Encounter for contraceptive management V25.9 [facility] [id number] [place] [address]26[address] Sep, [facility] [id number] [place] [address]- 1609 Sep, [facility] [id number] [place] [address]- 3170 Aug, [facility] [id number] [place] [address] 00216- 3569 Aug, [facility] [id number] [place] [address] 32742- 4018 Jul, [facility] [id number] [place] [address] 236001- 5731 Jul, [facility] [address], [place] [address] Jun, [facility] [id number] [place] [address] 75309- 1981 Jun, [facility] [address], [place] [address] Mar, [facility] [id number] [place] [address] 67546- 7525 Mar, [facility] [address] [facility] [id number], [place] [address] Dec, [facility] [address] [facility] [id number] [address] Dec, [facility] [address] [facility] [id number] [address] Nov, [facility] [address] [facility] [id number] [address] Nov, [facility] [address] [facility] [id number], [place] [address] Aug, [facility] [address] [facility] [id number] [address] Aug, [facility] [id number] [address] May, [facility] [address] [facility] [id number], [place] [address] May, [facility] [id number] Feb, [facility] [id number], [place] [address]- [address]99 Nov, [facility] [id number], [place] [address]- 7416 Aug, [facility] [id number], [place] [address] 9637 Apr, [facility] [address] [facility] [id number] [address] Apr, [facility] [id number], [place] [address]- 1291 Apr, IMMUNIZATIONS No Known Immunizations SOCIAL HISTORY Never Assessed REASON FOR VISIT std testing, partner tested positive for GC/Chlamydia- ABHIJIT Tejeda PLAN OF CARE Activity Details Follow Up prn Reason: Pending Test GC/CHLAM PROBE (STATE) VITAL SIGNS Height 65.5 in 2018-05-24 Weight 166.8 lbs 2018-05-24 Temperature 96.9 degrees Fahrenheit 2018-05-24 Heart Rate 74 bpm 2018-05-24 Respiratory Rate 20 2018-05-24 BMI 27.33 kg/m2 2018-05-24 Blood pressure systolic 102 mmHg 2018-05-24 Blood pressure diastolic 68 mmHg 2018-05-24 MEDICATIONS Medication Instructions Dosage Frequency Start Date End Date Duration Status Metronidazole 500 mg Orally 2 times a day 1 tablet 12May, 10 day(s) Active RESULTS Name Result Date Reference Range TRICHOMONAS (IN HOUSE) 2018-05-24 TRICHOMONAS negative Control + Lot # [id number] Exp date 07/2019 BACTERIAL VAGINOSIS (IN HOUSE) 2018-05-24 RESULTS positive Control + Lot # [id number] Exp date 12/2018 PROCEDURES Procedure Date Ordered Result Body Site TRICHOMONAS ASSAY W/OPTIC May 24, 2018 No Charge May 24, 2018 Bacterial Vaginosis In House May 24, 2018 INSTRUCTIONS MEDICATIONS ADMINISTERED No Known Medications MEDICAL (GENERAL) HISTORY Type Description Date Medical History Gonorrhea Positive-Chlamydia -Treated Medical History Chlamydia infection Medical History Chlamydia infection Surgical History T&A
--- OUTSIDE RECORDS SUMMARY | 2018-08-16 20:47 | XMS REPORT | Continuity of Care Document ---
Author Author [facility] Address Unknown Phone Unavailable Allergies Active Description Code Type Severity Reaction Onset Reported/Identified Relationship to Patient Clinical Status Yes No Known Drug Allergies [id number] Drug Allergy Unknown N/A 11/16/2017 Medications There [...] MIGRAINE UNSPECIFIED WITHOUT INTRACTABLE MIGRAINE 07/14/2010 TONO MAINTENANCE CRAFTSMAN, MATT A 078.10 VIRAL WARTS UNSPECIFIED 07/14/2010 TONO MAINTENANCE CRAFTSMAN, MATT A 346.90 MIGRAINE UNSPECIFIED WITHOUT INTRACTABLE [...] MIGRAINE UNSPECIFIED WITHOUT INTRACTABLE MIGRAINE 07/14/2010 RAJOTTE MAINTENANCE CRAFTSMAN, YOVANA A 078.10 VIRAL WARTS UNSPECIFIED 07/14/2010 RAJOTTE MAINTENANCE CRAFTSMAN, YOVANA A 346.90 MIGRAINE UNSPECIFIED WITHOUT INTRACTABLE MIGRAINE 09/15/2012 V25.9 CONTRACEPTION MANAGEMENT 09/15/2012 V25.9 CONTRACEPTION MANAGEMENT 09/15/2012 V25.9 CONTRACEPTION MANAGEMENT 09/15/2012 RAFAL LOCKE SUZAN K V25.9 CONTRACEPTION MANAGEMENT 09/15/2012 RAFAL LOCEK SUZAN K V25.9 CONTRACEPTION MANAGEMENT 09/15/2012 TONORufus [...] V25.02 CONTRACEPTION - ANY METHOD 12/07/2012 TONO MAINTENANCE CRAFTSMAN, MATT A V25.02 CONTRACEPTION - ANY METHOD [...] K V74.5 STD SCREEN 12/12/2013 LYLES DO, USZAN K V74.5 STD SCREEN 12/12/2013 LYLES DO, [...] ABSENCE OF OTHER ORGANS 12/12/2017 NATACHA GUAJARDO MAINTENANCE CRAFTSMAN Ot A54.9 GONOCOCCAL INFECTION, UNSPECIFIED 12/12/2017 NATACHA GUAJARDO MAINTENANCE CRAFTSMAN Ot F12.10 CANNABIS ABUSE, UNCOMPLICATED 12/12/2017 NATACHA GUAJARDO MAINTENANCE CRAFTSMAN Ot F17.210 NICOTINE DEPENDENCE, CIGARETTES, UNCOMPL 12/12/2017 NATACHA GUAJARDO MAINTENANCE CRAFTSMAN Ot R10.32 LEFT LOWER QUADRANT PAIN 12/12/2017 NATACHA GUAJARDO MAINTENANCE CRAFTSMAN Ot Z86.19 PERSONAL HISTORY OF OTHER INFECTIOUS AND 12/12/2017 NATACHA GUAJARDO MAINTENANCE CRAFTSMAN Ot Z90.89 ACQUIRED ABSENCE OF OTHER ORGANS [...] Ot A54.9 GONOCOCCAL INFECTION, UNSPECIFIED 12/14/2017 NATACHA GUAJRADO APRN Ot F12.10 CANNABIS ABUSE, UNCOMPLICATED 12/14/2017 NATACHA GUAJARDO APRN Ot F17.210 NICOTINE DEPENDENCE, CIGARETTES, UNCOMPL 12/14/2017 NATACHA GUAJARDO APRN Ot R10.32 LEFT LOWER QUADRANT PAIN 12/14/2017 NATACHA GUAJARDO APRN Ot Z86.19 PERSONAL HISTORY OF OTHER INFECTIOUS AND 12/14/2017 NATACHA GUAJARDO MAINTENANCE CRAFTSMAN Ot Z90.89 ACQUIRED ABSENCE OF OTHER ORGANS 12/18/2017 NATACHA GUAJARDO APRN Ot A54.9 GONOCOCCAL INFECTION, UNSPECIFIED 12/18/2017 NATACHA GUAJARDO MAINTENANCE CRAFTSMAN Ot F12.10 CANNABIS ABUSE, UNCOMPLICATED 12/18/2017 NATACHA GUAJARDO MAINTENANCE CRAFTSMAN Ot F17.210 NICOTINE DEPENDENCE, CIGARETTES, UNCOMPL 12/18/2017 NATACHA GUAJARDO APRN Ot R10.32 LEFT LOWER QUADRANT PAIN 12/18/2017 NATACHA GUAJARDO MAINTENANCE CRAFTSMAN Ot Z86.19 PERSONAL HISTORY OF OTHER INFECTIOUS AND 12/18/2017 NATACHA GUAJARDO MAINTENANCE CRAFTSMAN Ot Z90.89 ACQUIRED ABSENCE OF OTHER ORGANS 12/30/2017 ETRRA FERGUSON, DAVID Sandoval Ot F12.10 CANNABIS ABUSE, [...] F17.290 NICOTINE DEPENDENCE, OTHER TOBACCO PRODU 01/02/2018 TERRA FERGUSON, DAVID Sandoval Ot K62.5 HEMORRHAGE [...] Ot Z90.89 ACQUIRED ABSENCE OF OTHER ORGANS 05/17/2018 ANDREWS ENGLAND DO Ot F12.10 CANNABIS ABUSE, UNCOMPLICATED 05/17/2018 ANDREWS ENGLAND DO Ot F17.290 NICOTINE DEPENDENCE, OTHER TOBACCO PRODU 05/17/2018 ANDREWS ENGLAND DO Ot N92.6 IRREGULAR MENSTRUATION, UNSPECIFIED 05/17/2018 ANDREWS ENGLAND DO Ot N94.6 DYSMENORRHEA, UNSPECIFIED 05/17/2018 ANDREWS ENGLAND DO Ot O20.9 HEMORRHAGE IN EARLY , UNSPECIFI 05/17/2018 ANDREWS ENGLAND DO Ot O99.321 DRUG USE COMPLICATING , FIRST T 05/17/2018 ANDREWS ENGLAND DO Ot O99.331 SMOKING (TOBACCO) COMPLICATING 05/17/2018 ANDREWS ENGLAND DO Ot O99.89 OTH DISEASES AND CONDITIONS COMPL PREG/C 05/17/2018 ANDREWS ENGLAND DO Ot Z3A.01 LESS THAN 8 WEEKS GESTATION OF 05/17/2018 ANDREWS ENGLAND DO Ot Z86.19 PERSONAL HISTORY OF OTHER INFECTIOUS AND 05/17/2018 ANDREWS ENGLAND DO Ot Z90.89 ACQUIRED ABSENCE OF OTHER ORGANS Procedures Code Description [place] [address] URINE TEST (IN- HOUSE) 09/15/2012 08021 THERAPUTIC INJ SQ/IM 09/15/2012 J1050 DEPO PROVERA 09/15/2012 J1050 DEPO PROVERA 12/07/2012 07336 THERAPUTIC INJ SQ/IM 12/07/2012 59008 URINE TEST (IN- HOUSE) 12/07/2012 40040 URINE TEST (IN- HOUSE) 02/28/2013 94865 THERAPUTIC INJ SQ/IM 02/28/2013 J1050 DEPO PROVERA 02/28/2013 30322 THERAPUTIC INJ SQ/IM 05/23/2013 J1050 DEPO PROVERA 05/23/2013 60445 URINE TEST (IN- HOUSE) 05/23/2013 J1050 DEPO PROVERA 09/03/2013 28129 THERAPUTIC INJ SQ/IM 09/03/2013 45436 URINE TEST (IN- HOUSE) 09/03/2013 75945 THERAPUTIC INJ SQ/IM 12/12/2013 J1050 DEPO PROVERA 12/12/2013 16777 GC/CHLAM URINE ([facility], [facility]) 12/12/2013 74388 TEST, URINE (IN- HOUSE) 12/12/2013 55195 URINE TEST (IN- HOUSE) 03/26/2014 61920 THERAPUTIC INJ SQ/IM 03/26/2014 J1050 DEPO PROVERA 03/26/2014 40102 TEST, URINE (IN- HOUSE) 06/21/2014 J1050 DEPO PROVERA 06/21/2014 50101 THERAPUTIC INJ SQ/IM 06/21/2014 J1050 DEPO PROVERA 09/07/2014 52578 TEST, URINE (IN- HOUSE) 09/07/2014 11339 THERAPUTIC INJ SQ/IM 09/07/2014 Results Test Result [...] HSV 1/2 IGG, W/REFL NRG TEST CODE: [id number] NRG CLIENT CONTACT: PRABHA VIVAS NRG REPORT [...] identification in genital specimen by aerobe culture [id number] NRG Microscopic examination by KEVON preparation - 12/30/17 19:59 Microscopic examination by KEVON preparation TNP NRG Microscopic examination by wet preparation - 12/30/17 19:59 WET PREP RESULTS NO CLUE CELLS OBSERVED NRG Complete blood count (CBC) with automated white blood cell (WBC) differential - 05/15/18 23:59 Blood leukocytes automated count (number/volume) 9.4 10*3/uL 4.3-11.0 Blood erythrocytes automated count (number/volume) 5.29 10*6/uL 4.35-5.85 Venous blood hemoglobin measurement (mass/volume) 16.1 g/dL 11.5-16.0 Blood hematocrit (volume fraction) 47 % 35-52 Automated erythrocyte mean corpuscular volume 88 [foz_us] 80-99 Automated erythrocyte mean corpuscular hemoglobin (mass per erythrocyte) 30 pg 25-34 Automated erythrocyte mean corpuscular hemoglobin concentration measurement ( mass/volume) 35 g/dL 32-36 Automated erythrocyte distribution width ratio 13.1 % 10.0-14.5 Automated blood platelet count (count/volume) 235 10*3/uL 130-400 Automated blood platelet mean volume measurement 9.9 [foz_us] 7.4-10.4 Automated blood neutrophils/100 leukocytes 49 % 42-75 Automated blood lymphocytes/100 leukocytes 40 % 12-44 Blood monocytes/100 leukocytes 8 % 0-12 Automated blood eosinophils/100 leukocytes 3 % 0-10 Automated blood basophils/100 leukocytes 0 % 0-10 Blood neutrophils automated count (number/volume) 4.6 10*3 1.8-7.8 Blood lymphocytes automated count (number/volume) 3.7 10*3 1.0-4.0 Blood monocytes automated count (number/volume) 0.8 10*3 0.0-1.0 Automated eosinophil count 0.3 10*3/uL 0.0-0.3 Automated blood basophil count (count/volume) 0.0 10*3/uL 0.0-0.1 Whole blood basic metabolic panel - 05/15/18 23:59 Serum or plasma sodium measurement (moles/volume) 141 mmol/L 135-145 Serum or plasma potassium measurement (moles/volume) 3.4 mmol/L 3.6-5.0 Serum or plasma chloride measurement (moles/volume) 111 mmol/L 98-107 Carbon dioxide 17 mmol/L 21-32 Serum or plasma anion gap determination (moles/volume) 13 mmol/L 5-14 Serum or plasma urea nitrogen measurement (mass/volume) 8 mg/dL 7-18 Serum or plasma creatinine measurement (mass/volume) 0.79 mg/dL 0.60-1.30 Serum or plasma urea nitrogen/creatinine mass ratio 10 NRG Serum or plasma creatinine measurement with calculation of estimated glomerular filtration rate > NRG Serum or plasma glucose measurement (mass/volume) 88 mg/dL 70-105 Serum or plasma calcium measurement (mass/volume) 9.8 mg/dL 8.5-10.1 ABO+Rh group - 05/15/18 23:59 ABO+Rh group OP NRG Transfusion band number [id number] NRG Serum or plasma choriogonadotropin measurement (units/volume) - 05/15/18 23:59 Serum or plasma choriogonadotropin measurement (units/volume) < m[iU ]/mL <5 Complete urinalysis with reflex to culture - 05/16/18 00:40 Urine color determination YELLOW NRG Urine clarity determination CLEAR NRG Urine pH measurement by test strip 6 5-9 Specific gravity of urine by test [...] detection in urine sediment by light microscopy FEW NRG Squamous epithelial cells detection in urine sediment by light microscopy 5-10 NRG Crystals detection in urine sediment by light microscopy NONE NRG Casts detection in urine sediment by light microscopy NONE NRG Mucus detection in urine sediment by light microscopy NEGATIVE NRG Complete urinalysis with reflex to culture NO NRG Urine drug screening test - 05/16/18 00:40 Urine phencyclidine detection by screening method NEGATIVE [...] Status Pt. Type Provider Facility Loc./Unit Complaint [id number] 09/18/2014 12:56:00 09/18/2014 23:59:59 CLS Outpatient YOVANA BOWLING APRN [id number] 09/07/2014 10:54:00 09/07/2014 23:59:59 CLS Outpatient SUZAN LYLES DO [id number] 07/29/2014 17:17:00 07/29/2014 23:59:59 CLS Outpatient SUZAN LYLES DO [id number] 06/21/2014 08:56:00 06/21/2014 23:59:59 CLS Outpatient SUZAN LYLES DO [id number] 03/26/2014 14:55:00 03/26/2014 23:59:59 CLS Outpatient SUZAN LYLES DO [id number] 12/12/2013 08:34:00 12/12/2013 23:59:59 CLS Outpatient MATT POWER APRN [id number] 09/03/2013 09:10:00 09/03/2013 23:59:59 CLS Outpatient SUZAN LYLES DO [id number] 05/23/2013 08:29:00 05/23/2013 23:59:59 CLS Outpatient SUZAN LYLES DO [id number] 09/15/2012 16:14:00 09/15/2012 23:59:59 CLS Outpatient [id number] 02/28/2013 07:54:00 Document Registration [id number] 12/07/2012 11:53:00 Document Registration [id number] 05/06/2016 13:06:00 Document Registration [id number] 03/24/2016 10:05:00 Document Registration [id number] 04/06/2016 07:05:00 Document Registration [id number] 2016 14:12:00 Document Registration [id number] 05/24/2018 13:20:00 05/24/2018 23:59:59 CLS Outpatient ARPITA CHOW LAC [facility] [place] [id number] 05/24/2017 10:53:00 Document Registration [id number] 05/24/2017 10:00:00 Document Registration [id number] 02/15/2017 10:40:00 Document Registration [id number] 05/15/2018 22:52:00 05/16/2018 02:01:00 DIS Outpatient ANDREWS ENGLAND DO [facility] ER POSS 7 WKS PREG/VAG BLEEDING AND CRAMPING [id number] 12/30/2017 18:22:00 12/30/2017 21:56:00 DIS Emergency TERRA FERGUSON, DAVID Sandoval [facility] ER STOMACH PAIN [id number] 12/12/2017 13:20:00 12/12/2017 14:22:00 DIS Outpatient NATACHA GUAJARDO APRN [facility] ER ABD PAIN [id number] 12/07/2017 01:19:00 12/07/2017 02:28:00 DIS Outpatient ANDREWS ENGLAND DO [facility] ER ABD PAIN [id number] 11/16/2017 01:24:00 11/16/2017 02:27:00 DIS Emergency ANDREWS ENGLAND DO [facility] ER ABD PAIN, HASN'T HAD PERIOD THIS MONTH [id number] 06/03/2017 21:28:00 06/03/2017 23:59:59 CLS Outpatient NII BETH MD [facility] FNS [id number] 02/02/2018 13:27:00 Document Registration [id number] 02/18/2017 15:07:00 Document Registration [id number] 02/17/2017 15:09:00 Document Registration [id number] 03/25/2016 18:06:00 Document Registration [id number] 2016 15:10:00 Document Registration
== END 2018-08-16 16:48 | disposition home or self-care (01) ==
LOC: EDUNIT# 16:06 → ER 16:07
DX: R11.2 Nausea with vomiting, unspecified (principal); R19.7 Diarrhea, unspecified; F12.10 Cannabis abuse, uncomplicated; Z77.22 Contact with and (suspected) exposure to environmental tobacco smoke (acute) (chronic); Z90.89 Acquired absence of other organs; Z86.19 Personal history of other infectious and parasitic diseases
CPT/HCPCS: 99282

== ENCOUNTER 2020-01-28 11:28 | Emergency (ER) | payer SELFPAY ==
[~2020-01-28] VITALS: Ht 162 cm; Wt 91.1 kg
[~2020-01-28 11:28] MED LIST changes: -DOXY100T19 PO; +DOXY100T31 PO
--- NOTE | 2020-01-28 11:52 | ED Psychosocial ---
General Chief Complaint: Psych/Social Disorder Stated Complaint: ANXIETY Source: patient History of Present Illness Date Seen by Provider: Jan 28, 2020 Time Seen by Provider: 11:52 Initial Comments 19-year-old female presents with what she feels is that anxiety attack. Patient has had issues with anxiety in the past. Patient reports that it happened when s he awoke this morning. She is complaining of chest pain that is associated with it. Patient is very tearful. She does not recall any triggers it would cause her to have an anxiety attack. Patient denies any cough, fever, chills. She states some mild shortness of breath due to that chest pain. She has no nausea vomiting, diaphoresis. They sent reports that she states had medicine the past for anxiety. Allergies and Home Medications Allergies Coded Allergies: No Known Drug Allergies (Unverified , 11/16/17) Home Medications Hydroxyzine HCl 50 Mg Tablet, 50 MG PO Q8H PRN for ANXIETY Prescribed by: FRANCE BISHOP on 01/28/20 1325 Patient Home Medication List Home Medication List Reviewed: Yes Review of Systems Constitutional: No chills, No diaphoresis, No dizziness, No fever, No weakness Respiratory: see HPI; No cough, No wheezing Cardiovascular: see HPI; No edema, No palpitations Gastrointestinal: No abdominal pain, No constipation, No nausea, No vomiting Genitourinary: no symptoms reported Musculoskeletal: no symptoms reported Skin: no symptoms reported Psychiatric/Neurological: Anxiety Past Isxqcfq-Tptcwi-Nmpekn Hx Past Med/Social Hx: Reviewed Nursing Past Med/Soc Hx Patient Social History Alcohol Use: Rarely Uses Recreational Drug Use: Yes Drug of Choice: MARIJUANA Smoking Status: Never a Smoker Type Used: Cigars 2nd Hand Smoke Exposure: Yes Recent Foreign Travel: No Contact w/Someone Who Travel: No Recent Hopitalizations: No Immunizations Up To Date Tetanus Booster (TDap): Unknown Seasonal Allergies Seasonal Allergies: No Past Medical History Surgeries: Yes (T&A A CHILD) Adenoidectomy, Tonsillectomy Respiratory: No Cardiac: No Neurological: No Reproductive Disorders: No Female Reproductive Disorders: Denies Sexually Transmitted Disease: Yes (HX OF CHLAMYDIA 2017, PREVIOUSLY TREATED) HIV/AIDS: No Genitourinary: No Gastrointestinal: No Musculoskeletal: No Endocrine: No HEENT: Yes (S/P T&A) Tonsilitis Cancer: No Psychosocial: Yes Sleep Difficulties, Anxiety Integumentary: No Blood Disorders: No Physical Exam Vital Signs - First Documented 01/28/20 11:50 Temp 36.3 Pulse 86 Resp 20 B/P (MAP) 121/83 (96) Pulse Ox 97 Capillary Refill : Height, Weight, BMI Height: 5'5.00" Weight: 160lbs. oz. 72.338015jr; 21.09 BMI Method:Stated General Appearance: other (tearful, anxious) HEENT: PERRL/EOMI Neck: supple, normal inspection Respiratory: no respiratory distress, no accessory muscle use Cardiovascular: normal peripheral pulses, regular rate, rhythm Gastrointestinal: non tender, soft Extremities: normal range of motion, non-tender Neurologic/Psychiatric: screen maker II-XII nml as tested, no motor/sensory deficits, alert, oriented x 3 Appearance/Memory: appropriate appearance, other (tearful) Behavior/Eye Contact: cooperative Thoughts/Hallucinations: normal thought pattern Skin: normal color, warm/dry Progress/Results/Core Measures Results/Orders Lab Results Laboratory Tests Test 01/28/20 12:02 01/28/20 12:41 Range/Units White Blood Count 7.0 4.3-11.0 10^3/uL Red Blood Count 4.60 4.35-5.85 10^6/uL Hemoglobin 13.7 11.5-16.0 G/DL Hematocrit 39 35-52 % Mean Corpuscular Volume 85 80-99 FL Mean Corpuscular Hemoglobin 30 25-34 PG Mean Corpuscular Hemoglobin Concent 35 32-36 G/DL Red Cell Distribution Width 12.1 10.0-14.5 % Platelet Count 263 130-400 10^3/uL Mean Platelet Volume 9.5 7.4-10.4 FL Sodium Level 137 135-145 MMOL/L Potassium Level 3.8 3.6-5.0 MMOL/L Chloride Level 111 H 98-107 MMOL/L Carbon Dioxide Level 17 L 21-32 MMOL/L Anion Gap 9 5-14 MMOL/L Blood Urea Nitrogen 15 7-18 MG/DL Creatinine 0.76 0.60-1.30 MG/DL Estimat Glomerular Filtration Rate > 60 BUN/Creatinine Ratio 20 Glucose Level 93 70-105 MG/DL Calcium Level 8.8 8.5-10.1 MG/DL Troponin I < 0.028 <0.028 NG/ML Urine Color YELLOW Urine Clarity CLEAR Urine pH 7.5 5-9 Urine Specific [place] 1.020 1.016-1.022 Urine Protein NEGATIVE NEGATIVE Urine Glucose (UA) NEGATIVE NEGATIVE Urine Ketones TRACE H NEGATIVE Urine Nitrite NEGATIVE NEGATIVE Urine Bilirubin NEGATIVE NEGATIVE Urine Urobilinogen 0.2 < = 1.0 MG/DL Urine Leukocyte Esterase NEGATIVE NEGATIVE Urine RBC (Auto) TRACE-L NEGATIVE Urine RBC NONE /HPF Urine WBC NONE /HPF Urine Squamous Epithelial Cells 10-25 H /HPF Urine Crystals NONE /LPF Urine Bacteria FEW H /HPF Urine Casts NONE /LPF Urine Mucus NEGATIVE /LPF Urine Culture Indicated NO Urine Test NEGATIVE NEGATIVE Urine Opiates Screen NEGATIVE NEGATIVE Urine Oxycodone Screen NEGATIVE NEGATIVE Urine Methadone Screen NEGATIVE NEGATIVE Urine Propoxyphene Screen NEGATIVE NEGATIVE Urine Barbiturates Screen NEGATIVE NEGATIVE Ur Tricyclic Antidepressants Screen NEGATIVE NEGATIVE Urine Phencyclidine Screen NEGATIVE NEGATIVE Urine Amphetamines Screen NEGATIVE NEGATIVE Urine Methamphetamines Screen NEGATIVE NEGATIVE Urine Benzodiazepines Screen NEGATIVE NEGATIVE Urine Cocaine Screen NEGATIVE NEGATIVE Urine Cannabinoids Screen POSITIVE H NEGATIVE My Orders Orders - BISHOP,FRANCE L DO Basic Metabolic Panel (01/28/20 11:56) Cbc No Diff (01/28/20 11:56) Drug Screen Stat (Urine) (01/28/20 11:56) Hcg,Qualitative Urine (01/28/20 11:56) Troponin I (01/28/20 11:56) Ua Culture If Indicated (01/28/20 11:56) Ekg Tracing (01/28/20 11:56) Monitor-Rhythm Ecg Trace Only (01/28/20 11:56) Chest 1 View, Ap/Pa Only (01/28/20 11:56) Hydroxyzine Cap/Tab (Vistaril) (01/28/20 12:00) Medications Given in ED Current Medications Medications Dose Ordered Sig/Camilo Route Start Time Stop Time Status Last Admin Dose Admin Hydroxyzine Pamoate 50 mg ONCE ONCE PO 01/28/20 12:00 01/28/20 12:01 DC 01/28/20 12:20 50 MG Vital Signs/I&O 01/28/20 11:50 Temp 36.3 Pulse 86 Resp 20 B/P (MAP) 121/83 (96) Pulse Ox 97 Progress Progress Note : Time: 13:21 Progress Note Patient's mood and anxiety improved with time in the medication. Has no acute f indings outside of marijuana on her urine drug screen. Discussed with her that they can actually exacerbate anxiety. Patient is otherwise stable 1 will be discharged home. Diagnostic Imaging Diagonstic Imaging: Xray Plain Films/CT/US/NM/MRI: chest Comments [facility] [place], [place] NAME: GURDEEP RENTERIA [facility] REC#: [id number] PT STATUS: REG ER : 2000 PHYSICIAN: FRANCE BISHOP DO ADMIT DATE: 01/28/20/ER Draft Date of Exam:01/28/20 CHEST 1 VIEW, AP/PA ONLY INDICATION: Chest pain EXAMINATION: Portable chest. FINDINGS: The lungs are well-aerated and clear. The heart is not enlarged. No pulmonary edema or hilar adenopathy. No pneumothorax or pleural effusion. No bony abnormalities. IMPRESSION: Negative portable chest. Departure Impression Primary Impression: Anxiety Disposition: 01 HOME, SELF-CARE Condition: Stable Departure-Patient Inst. Referrals[facility] (PCP/Family) Primary Care Physician Patient Instructions: Marijuana, Marijuana Use and Addiction, Panic Disorder (DC) Add. Discharge Instructions: Please establish a provider either with a mental health facility or primary physician to help you with anxiety and further outpatient management All discharge instructions reviewed with patient and/or family. Voiced understanding. Scripts Hydroxyzine HCl (Hydroxyzine HCl) 50 Mg Tablet 50 MG PO Q8H PRN for ANXIETY, #20 TAB Prov: FRANCE BISHOP DO 01/28/20 FRANCE BISHOP DO Jan 28, 2020 11:52
[2020-01-28] MEDS ORDERED: hydrOXYzine (VISTARIL/ATARAX) 25 MG capsule/tablet PO ONE (12:00)
[2020-01-28 12:10] LABS: HEMOGLOBIN 13.7 G/DL (11.5-16.0); MEAN PLATELET VOLUME 9.5 FL (7.4-10.4); RED CELL DISTRIBUTION WIDTH 12.1 % (10.0-14.5)
--- OUTSIDE RECORDS SUMMARY | 2020-01-28 12:15 | XMS REPORT ---
Author Author Norbert Farzana Doctor Organization [facility] Address Unknown Phone Unavailable Care Team Providers Care Customer Service Advisor Name Role Phone Migration, Doctor Unavailable Unavailable PROBLEMS Type Condition ICD9-CM Code IOT37-GH Code Onset Dates Condition S tatus SNOMED Code Problem Costochondritis M94.0 Active 6410 9004 Problem Hematochezia K92.1 Active 3031031 08 Problem Gastritis, presence of bleed ing unspecified, unspecified chronicity, unspecified gastritis type K29.70 Active 4 805692 Problem Subacute vaginitis N76.1 Active 1 6044583550939724 Problem Sore throat J02.9 Active 74979820 3 Problem Amenorrhea due to Depo Provera N91.2 Active 86607853 Problem Routine gynecological examination Z01.419 Active 116022003 Problem Postprandial abdominal pain in left upper quadrant R10.12 Active 252367939 Problem History of UTI Z87.440 Active 06179 48815610 Problem Hematemesis K92.0 Active 7760932 Problem Abdominal pain, unspecified location R10.9 Active 71961412 ALLERGIES No Information ENCOUNTERS Encounter Location Date Diagnosis [facility] [id number] [place] [address] 17 May, 2018 [facility] [id number] [place] [address] May, Sexually transmitted disease exposure Z2 0.2 [facility] [address] [facility] [id number] [address] 09 Jul, 2017 Cough in adult R05 and Acute nasopharyngitis J00 [facility] [address] [id number] [place] [address] 05 May, 2017 Routine screening for STI (sexually verduzco smitted infection) Z11.3 ; Amenorrhea due to Depo Provera N91.2 and Encounter for counseling regarding contraception Z30.09 [facility] [id number] [place] [address] Feb, [facility] [address] [address] Feb, [facility] [address] [address] Jan, Routine screening for STI (sexually verduzco smitted infection) Z11.3 [facility] [facility] [address] [address] Nov, Encounter for Depo-Provera contraception Z30.42 [place] [address] [address] Aug, Routine screening for STI (sexually verduzco smitted infection) Z11.3 [place] [address] [address] Aug, Routine screening for STI (sexually verduzco smitted infection) Z11.3 [place] [address] [address] Aug, [place] [address] [address] Aug, Routine screening for STI (sexually verduzco smitted infection) Z11.3 ; Encounter for Depo-Provera contraception Z30.42 ; Depot contraception Z30.40 and Encounter for counseling regarding contraception Z30.09 [facility] [address] [facility] [id number] [place] [address] Jul, Pharyngitis due to other org anism J02.8 [facility] [id number] [place] [address] May, Encounter for Depo-Provera contraception Z30.42 [place] [address] [address] May, [place] [address] [address] Apr, Subacute vaginitis N76.1 [facility] [address] [address] Mar, [place] [address] [address] Mar, Hematochezia K92.1 [place] [address] [address] Mar, [place] [address] [address] Mar, Abdominal pain, unspecified location R10 .9 ; Hematochezia K92.1 ; Hematemesis K92.0 and History of UTI Z87.440 [place] [address] [address] Feb, Hematochezia K92.1 ; Encounter for Depo- Provera contraception Z30.42 ; Postprandial abdominal pain in left upper quadrant R10.12 ; Postprandial abdominal pain in right upper quadrant R10.11 and Gastritis, presence of bleeding unspecified, unspecified chronicity, unspecified gastritis type K29.70 [place] [address] [address] Jan, Costochondritis M94.0 and Sore throat J0 2.9 [place] [address] [address] Dec, Rectal bleeding K62.5 [place] [address] [address] Dec, [place] [address] [address] Nov, [place] [address] [address] Nov, Routine gynecological examination Z01.41 9 ; Encounter for surveillance of injectable contraceptive Z30.42 and Encounter for Depo-Provera contraception Z30.42 [place] [address] [address] Aug, Encounter for Depo-Provera contraception Z30.42 [facility] [address] [id number] [place] [address] 09 May, 2015 Encounter for Depo-Provera contraception Z30.42 [facility] [address] [id number] [place] [address] 08 Feb, 2015 Unspecified contraceptive management V25 .9 [facility] [id number] [place] [address] Dec, TDAP DX V06.1 [facility] [id number] [place] [address] Nov, Encounter for contraceptive management V 25.9 [facility] [address] [address] Sep, [facility] [address] [address] Sep, [facility] [address] [address] Aug, [facility] [id number] [place] [address] Aug, [facility] [address] [address] Jul, [facility] [id number] [place] [address] Jul, [facility] [address] [address] Jun, [facility] [id number] [place] [address] Jun, [facility] [address] [address] Mar, [facility] [id number] [place] [address] Mar, [facility] [id number] [place] [address] Dec, [facility] [address] [place] [address] Dec, [facility] [address] [id number] [place] [address] Nov, [facility] [address] [id number] [place] [address] Nov, [facility] [id number] [place] [address] Aug, [facility] [id number] [place] [address] Aug, [facility] [id number] [place] [address] May, [facility] [id number] [place] [address] May, [facility] [id number] [place] [address] Feb, [facility] [id number] [place] [address] Nov, [facility] [id number] [place] [address] Aug, [facility] [id number] [place] [address] Apr, [facility] [id number] [place] [address] Apr, [facility] [id number] [place] [address] Apr, IMMUNIZATIONS No Known Immunizations SOCIAL HISTORY Never Assessed REASON FOR VISIT PLAN OF CARE VITAL SIGNS MEDICATIONS Unknown Medications RESULTS No Results PROCEDURES Procedure Date Ordered Result Body Site THER/PROPH/DIAG INJ, SC/IM September 03, 2013 Medroxyprogesterone inj September 03, 2013 URINE TEST September 03, 2013 INSTRUCTIONS MEDICATIONS ADMINISTERED No Known Medications MEDICAL (GENERAL) HISTORY Type Description Date Medical History Gonorrhea Positive-Chlamydia -Tyrone ated Medical History Chlamydia infection Medical History Chlamydia infection Surgical History T&A
--- OUTSIDE RECORDS SUMMARY | 2020-01-28 12:15 | XMS REPORT ---
Author Author Farzana Casillas Organization [facility] Address [address] [place] [address] Care Team Providers Care Director Independent Name Role Phone MATT Casillas Unavailable PROBLEMS Type Condition ICD9-CM Code ERA91-HQ Code Onset Dates Condition S tatus SNOMED Code Problem Costochondritis M94.0 Active 6410 9004 Problem Hematochezia K92.1 Active 9394093 08 Problem Gastritis, presence of bleed ing unspecified, unspecified chronicity, unspecified gastritis type K29.70 Active 4 897564 Problem Subacute vaginitis N76.1 Active 1 7005120180515686 Problem Sore throat J02.9 Active 52355489 3 Problem Amenorrhea due to Depo Provera N91.2 Active 51269842 Problem Routine gynecological examination Z01.419 Active 934182959 Problem Postprandial abdominal pain in left upper quadrant R10.12 Active 742583509 Problem History of UTI Z87.440 Active 28218 80532341 Problem Hematemesis K92.0 Active 2033086 Problem Abdominal pain, unspecified location R10.9 Active 21237254 ALLERGIES No Information ENCOUNTERS Encounter Location Date Diagnosis [facility] [id number] [place] [address] May, [facility] [id number] [place] [address] May, Sexually transmitted disease exposure Z2 0.2 [facility] [address] [facility] [id number] [address] [address] 09 Jul, 2017 Cough in adult R05 and Acute nasopharyngitis J00 [facility] [address] [id number] [place] [address] May, Routine screening for STI (sexually verduzco smitted infection) Z11.3 ; Amenorrhea due to Depo Provera N91.2 and Encounter for counseling regarding contraception Z30.09 [facility] [id number] [place] [address] Feb, [facility] [address] [address] Feb, [facility] [id number] [place] [address] Jan, Routine screening for STI (sexually verduzco smitted infection) Z11.3 [address] [address] [address] Nov, Encounter for Depo-Provera contraception Z30.42 [place] [address] [address] Aug, Routine screening for STI (sexually verduzco smitted infection) Z11.3 [place] [address] [address] Aug, Routine screening for STI (sexually verduzco smitted infection) Z11.3 [place] [address] [address] Aug, [place] [address] [address] Aug, Routine screening for STI (sexually verduzco smitted infection) Z11.3 ; Encounter for Depo-Provera contraception Z30.42 ; Depot contraception Z30.40 and Encounter for counseling regarding contraception Z30.09 [facility] [address] [facility] [id number] [address] [place] [address] Jul, Pharyngitis due to other org anism J02.8 [facility] [address] [address] May, Encounter for Depo-Provera contraception Z30.42 [facility] [address] [address] May, [place] [address] [address] 14 Apr, 2016 Subacute vaginitis N76.1 [place] [address] [address] Mar, [place] [address] [address] Mar, Hematochezia K92.1 [place] [address] [address] Mar, [place] [address] [address] Mar, Abdominal pain, unspecified location R10 .9 ; Hematochezia K92.1 ; Hematemesis K92.0 and History of UTI Z87.440 [place] [address] [address] Feb, Hematochezia K92.1 ; Encounter for Depo- Provera contraception Z30.42 ; Postprandial abdominal pain in left upper quadrant R10.12 ; Postprandial abdominal pain in right upper quadrant R10.11 and Gastritis, presence of bleeding unspecified, unspecified chronicity, unspecified gastritis type K29.70 [place] [address] [address] Jan, Costochondritis M94.0 and Sore throat J0 2.9 [place] [address] [address] Dec, Rectal bleeding K62.5 [place] [address] [address] Dec, [place] [address] [address] Nov, [place] [address] [address] Nov, Routine gynecological examination Z01.41 9 ; Encounter for surveillance of injectable contraceptive Z30.42 and Encounter for Depo-Provera contraception Z30.42 [place] [address] [place] [address] 09 Aug, 2015 Encounter for Depo-Provera contraception Z30.42 [facility] [address] [address] May, Encounter for Depo-Provera contraception Z30.42 [facility] [id number] [place] [address] 08 Feb, 2015 Unspecified contraceptive management V25 .9 [facility] [address] [address] Dec, TDAP DX V06.1 [facility] [address] [address] Nov, Encounter for contraceptive management V 25.9 [facility] [address] [address] Sep, [facility] [address] [address] Sep, [facility] [address] [address] Aug, [facility] [address] [address] Aug, [facility] [address] [address] Jul, [facility] [id number] [place] [address] Jul, [facility] [id number] [place] [address] Jun, [facility] [address] [address] Jun, [facility] [address] [address] Mar, [facility] [address] [address] Mar, [facility] [address] [place] [address] 10 Dec, 2013 [facility] [id number] [place] [address] Dec, [facility] [id number] [place] [address] Nov, [facility] [id number] [place] [address] Nov, [facility] [id number] [place] [address] Aug, [facility] [id number] [place] [address] Aug, [facility] [id number] [place] [address] May, [facility] [id number] [place] [address] May, [facility] [id number] [place] [address] Feb, [facility] [id number] [place] [address] Nov, [facility] [id number] [place] [address] Aug, [facility] [id number] [place] [address] Apr, [facility] [id number] [place] [address] Apr, [facility] [id number] [place] [address] Apr, IMMUNIZATIONS No Known Immunizations SOCIAL HISTORY Never Assessed REASON FOR VISIT PLAN OF CARE VITAL SIGNS Height 60 in 2013-12-12 Weight 158.5 lbs 2013-12-12 Temperature 97.8 degrees Fahrenheit 2013-12-12 Heart Rate 108 bpm 2013-12-12 Respiratory Rate 20 2013-12-12 Blood pressure systolic 109 mmHg 2013-12-12 Blood pressure diastolic 78 mmHg 2013-12-12 MEDICATIONS Unknown Medications RESULTS No Results PROCEDURES Procedure Date Ordered Result Body Site THER/PROPH/DIAG INJ, SC/IM December 12, 2013 Medroxyprogesterone inj December 12, 2013 CHYLMD TRACH, DNA, AMP PROBE December 12, 2013 URINE TEST December 12, 2013 INSTRUCTIONS MEDICATIONS ADMINISTERED No Known Medications MEDICAL (GENERAL) HISTORY Type Description Date Medical History Gonorrhea Positive-Chlamydia -Tyrone ated Medical History Chlamydia infection Medical History Chlamydia infection Surgical History T&A
--- OUTSIDE RECORDS SUMMARY | 2020-01-28 12:15 | XMS REPORT ---
Author Author Jericho Toussaintlissrupert Doctor Organization [facility] Address Unknown Phone Unavailable Care Team Providers Care Quality Control Tech Raw Materials Name Role Phone Migration, Doctor Unavailable Unavailable PROBLEMS Type Condition ICD9-CM Code NCY53-YP Code Onset Dates Condition S tatus SNOMED Code Problem Costochondritis M94.0 Active 6410 9004 Problem Hematochezia K92.1 Active 7078375 08 Problem Gastritis, presence of bleed ing unspecified, unspecified chronicity, unspecified gastritis type K29.70 Active 4 223852 Problem Subacute vaginitis N76.1 Active 1 0422739330230420 Problem Sore throat J02.9 Active 97844066 3 Problem Amenorrhea due to Depo Provera N91.2 Active 24924221 Problem Routine gynecological examination Z01.419 Active 444759756 Problem Postprandial abdominal pain in left upper quadrant R10.12 Active 342511157 Problem History of UTI Z87.440 Active 92146 14514955 Problem Hematemesis K92.0 Active 6325704 Problem Abdominal pain, unspecified location R10.9 Active 88126531 ALLERGIES No Information ENCOUNTERS Encounter Location Date Diagnosis [facility] [id number] [place] [address] 17 May, 2018 [facility] [address] [place] [address] May, Sexually transmitted disease exposure Z20.2 [facility] [address] [facility] [id number] [address] [place] [address] 09 Jul, 2017 Cough in adult R05 and Acute nasopharyngitis J00 [facility] [id number] [place] [address] 05 May, 2017 Routine screening for STI (s exually transmitted infection) Z11.3 ; Amenorrhea due to Depo Provera N91.2 and Encounter for counseling regarding contraception Z30.09 [facility] [address] [facility] [id number] [address] [place] [address] Feb, [facility] [address] [id number] [address] [place] [address] Feb, [facility] [address] [facility] [id number] [address] [place] [address] Jan, Routine screening for STI (s exually transmitted infection) Z11.3 [facility] [address] [id number] [address] [place] [address] Nov, Encounter for Depo-Provera c ontraception Z30.42 [address] [address] [facility] [id number] [address] [place] [address] Aug, Routine screening for STI (s exually transmitted infection) Z11.3 [place] [address] [facility] [id number] [address] [place] [address] Aug, Routine screening for STI (s exually transmitted infection) Z11.3 [facility] [address] [id number] [address] [place] [address] Aug, [facility] [address] [facility] [id number] [address] [place] [address] Aug, Routine screening for STI (s exually transmitted infection) Z11.3 ; Encounter for Depo-Provera contraception Z30.42 ; Depot contraception Z30.40 and Encounter for counseling regarding contraception Z30.09 [facility] [address] [id number] [address] [place] [address] Jul, Pharyngitis due to other org anism J02.8 [facility] [address] [id number] [address] [place] [address] May, Encounter for Depo-Provera c ontraception Z30.42 [facility] [address] [facility] [id number] [address] [place] [address] May, [facility] [address] [facility] [id number] [address] [place] [address] Apr, Subacute vaginitis N76.1 [address] [address] [facility] [id number] [address] [place] [address] Mar, [place] [address] [facility] [id number] [address] [place] [address] Mar, Hematochezia K92.1 [address] [place] [id number] [place] [address] Mar, [place] [address] [facility] [id number] [address] [place] [address] Mar, Abdominal pain, unspecified location R10.9 ; Hematochezia K92.1 ; Hematemesis K92.0 and History of UTI Z87.440 [place] [id number] [place] [address] Feb, Hematochezia K92.1 ; Encount er for Depo-Provera contraception Z30.42 ; Postprandial abdominal pain in left upper quadrant R10.12 ; Postprandial abdominal pain in right upper quadrant R10.11 and Gastritis, presence of bleeding unspecified, unspecified chronicity, unspecified gastritis type K29.70 [address] [id number] [place] [address] Jan, Costochondritis M94.0 and So re throat J02.9 [place] [id number] [place] [address] Dec, Rectal bleeding K62.5 [place] [address] [facility] [id number] [address] [place] [address] Dec, [place] [id number] [place] [address] Nov, [place] [address] [facility] [id number] [address] [place] [address] Nov, Routine gynecological examin ation Z01.419 ; Encounter for surveillance of injectable contraceptive Z30.42 and Encounter for Depo-Provera contraception Z30.42 [facility] [address] [id number] [address] [place] [address] 09 Aug, 2015 Encounter for Depo-Provera c ontraception Z30.42 [facility] [address] [id number] [address] [place] [address] 09 May, 2015 Encounter for Depo-Provera c ontraception Z30.42 [facility] [address] [id number] [address] [place] [address] Feb, Unspecified contraceptive ma nagement V25.9 [facility] [address] [id number] [address] [place] [address] Dec, TDAP DX V06.1 [facility] [address] [id number] [address] [place] [address] Nov, Encounter for contraceptive management V25.9 [facility] [address] [id number] [address] [place] [address] Sep, [facility] [address] [id number] [address] [place] [address] Sep, [facility] [address] [id number] [address] [place] [address] Aug, [facility] [address] [id number] [address] [place] [address] Aug, [facility] [address] [id number] [address] [place] [address] Jul, [facility] [address] [id number] [address] [place] [address] Jul, [facility] [address] [id number] [address] [place] [address] Jun, [facility] [address] [id number] [address] [place] [address] Jun, [facility] [address] [id number] [address] [place] [address] Mar, [facility] [address] [id number] [address] [place] [address] Mar, [facility] [address] [id number] [address] [place] [address] Dec, [facility] [address] [id number] [address] [place] [address] Dec, [facility] [address] [id number] [address] [place] [address] Nov, [facility] [address] [id number] [address] [place] [address] Nov, [facility] [address] [id number] [address] [place] [address] Aug, [facility] [address] [id number] [address] [place] [address] Aug, [facility] [address] [id number] [address] [place] [address] May, [facility] [address] [id number] [address] [place] [address] May, [facility] [address] [id number] [address] [place] [address] Feb, [facility] [address] [id number] [address] [place] [address] Nov, [facility] [address] [id number] [address] [place] [address] Aug, [facility] [address] [id number] [address] [place] [address] Apr, [facility] [address] [id number] [address] [place] [address] Apr, [facility] [address] [id number] [address] [place] [address] Apr, IMMUNIZATIONS No Known Immunizations SOCIAL HISTORY Never Assessed REASON FOR VISIT PLAN OF CARE VITAL SIGNS MEDICATIONS Unknown Medications RESULTS No Results PROCEDURES Procedure Date Ordered Result Body Site THER/PROPH/DIAG INJ, SC/IM Feb 28, 2013 Medroxyprogesterone inj Feb 28, 2013 URINE TEST Feb 28, 2013 INSTRUCTIONS MEDICATIONS ADMINISTERED No Known Medications MEDICAL (GENERAL) HISTORY Type Description Date Medical History Gonorrhea Positive-Chlamydia -Tyrone ated Medical History Chlamydia infection Medical History Chlamydia infection Surgical History T&A
--- OUTSIDE RECORDS SUMMARY | 2020-01-28 12:15 | XMS REPORT ---
Author Author Jericho Toussaintlissrupert Doctor Organization [facility] Address Unknown Phone Unavailable Care Team Providers Care Business Enterprise Officer Name Role Phone Migration, Doctor Unavailable Unavailable PROBLEMS Type Condition ICD9-CM Code [id number] Code Onset Dates Condition S tatus SNOMED Code Problem Costochondritis M94.0 Active 6410 9004 Problem Hematochezia K92.1 Active 5234966 08 Problem Gastritis, presence of bleed ing unspecified, unspecified chronicity, unspecified gastritis type K29.70 Active 4 298380 Problem Subacute vaginitis N76.1 Active 1 [id number] Problem Sore throat J02.9 Active 39873660 3 Problem Amenorrhea due to Depo Provera N91.2 Active 43833036 Problem Routine gynecological examination Z01.419 Active 849308391 Problem Postprandial abdominal pain in left upper quadrant R10.12 Active 380590854 Problem History of UTI Z87.440 Active 09310 10170065 Problem Hematemesis K92.0 Active 2469333 Problem Abdominal pain, unspecified location R10.9 Active 56645188 ALLERGIES No Information ENCOUNTERS Encounter Location Date Diagnosis [facility] [id number] [place] [address] 17 May, 2018 [facility] [address] [place] [address] May, Sexually transmitted disease exposure Z20.2 [facility] [address] [facility] [id number] [address] [place] [address] 09 Jul, 2017 Cough in adult R05 and Acute nasopharyngitis J00 [facility] [address] [place] [id number] [address] [place] [address] 05 May, 2017 Routine screening for STI (s exually transmitted infection) Z11.3 ; Amenorrhea due to Depo Provera N91.2 and Encounter for counseling regarding contraception Z30.09 [facility] [address] [facility] [id number] [address] [place] [address] Feb, [facility] [address] [id number] [address] [place] [address] Feb, [facility] [address] [facility] [id number] [address] [place] [address] Jan, Routine screening for STI (s exually transmitted infection) Z11.3 [facility] [address] [id number] [address] [place] [address] Nov, Encounter for Depo-Provera c ontraception Z30.42 [place] [address] [facility] [id number] [address] [place] [address] Aug, Routine screening for STI (s exually transmitted infection) Z11.3 [place] [address] [facility] [id number] [address] [place] [address] Aug, Routine screening for STI (s exually transmitted infection) Z11.3 [facility] [address] [id number] [address] [place] [address] Aug, [facility] [address] [facility] [id number] [address] [place] [address] Aug, Routine screening for STI (s exually transmitted infection) Z11.3 ; Encounter for Depo-Provera contraception Z30.42 ; Depot contraception Z30.40 and Encounter for counseling regarding contraception Z30.09 [facility] [address] [id number] [address] [place] [address] Jul, Pharyngitis due to other org anism J02.8 [facility] [address] [id number] [address] [place] [address] May, Encounter for Depo-Provera c ontraception Z30.42 [facility] [address] [facility] [id number] [address] [place] [address] May, [facility] [address] [facility] [id number] [address] [place] [address] Apr, Subacute vaginitis N76.1 [place] [address] [facility] [id number] [address] [place] [address] Mar, [place] [address] [facility] [id number] [address] [place] [address] Mar, Hematochezia K92.1 [place] [address] [place] [id number] [address] [place] [address] Mar, [place] [address] [facility] [id number] [address] [place] [address] Mar, Abdominal pain, unspecified location R10.9 ; Hematochezia K92.1 ; Hematemesis K92.0 and History of UTI Z87.440 [place] [address] [place] [id number] [address] [place] [address] Feb, Hematochezia K92.1 ; Encount er for Depo-Provera contraception Z30.42 ; Postprandial abdominal pain in left upper quadrant R10.12 ; Postprandial abdominal pain in right upper quadrant R10.11 and Gastritis, presence of bleeding unspecified, unspecified chronicity, unspecified gastritis type K29.70 [place] [address] [place] [id number] [address] [place] [address] Jan, Costochondritis M94.0 and So re throat J02.9 [place] [address] [place] [id number] [address] [place] [address] Dec, Rectal bleeding K62.5 [place] [address] [facility] [id number] [address] [place] [address] Dec, [place] [address] [place] [id number] [address] [place] [address] Nov, [place] [address] [facility] [id number] [address] [place] [address] Nov, Routine gynecological examin ation Z01.419 ; Encounter for surveillance of injectable contraceptive Z30.42 and Encounter for Depo-Provera contraception Z30.42 [facility] [address] [id number] [address] [place] [address] 09 Aug, 2015 Encounter for Depo-Provera c ontraception Z30.42 [facility] [address] [id number] [address] [place] [address] 09 May, 2015 Encounter for Depo-Provera c ontraception Z30.42 [facility] [address] [id number] [address] [place] [address] Feb, Unspecified contraceptive ma nagement V25.9 [facility] [address] [id number] [address] [place] [address] Dec, TDAP DX V06.1 [facility] [address] [id number] [address] [place] [address] Nov, Encounter for contraceptive management V25.9 [facility] [address] [id number] [address] [place] [address] Sep, [facility] [address] [id number] [address] [place] [address] Sep, [facility] [address] [id number] [address] [place] [address] Aug, [facility] [address] [id number] [address] [place] [address] Aug, [facility] [address] [id number] [address] [place] [address] Jul, [facility] [address] [id number] [address] [place] [address] Jul, [facility] [address] [id number] [address] [place] [address] Jun, [facility] [address] [id number] [address] [place] [address] Jun, [facility] [address] [id number] [address] [place] [address] Mar, [facility] [address] [id number] [address] [place] [address] Mar, [facility] [address] [id number] [address] [place] [address] Dec, [facility] [address] [id number] [address] [place] [address] Dec, [facility] [address] [id number] [address] [place] [address] Nov, [facility] [address] [id number] [address] [place] [address] Nov, [facility] [address] [id number] [address] [place] [address] Aug, [facility] [address] [id number] [address] [place] [address] Aug, [facility] [address] [id number] [address] [place] [address] May, [facility] [address] [id number] [address] [place] [address] May, [facility] [address] [id number] [address] [place] [address] Feb, [facility] [address] [id number] [address] [place] [address] Nov, [facility] [address] [id number] [address] [place] [address] Aug, [facility] [address] [id number] [address] [place] [address] Apr, [facility] [address] [id number] [address] [place] [address] Apr, [facility] [address] [id number] [address] [place] [address] Apr, IMMUNIZATIONS No Known Immunizations SOCIAL HISTORY Never Assessed REASON FOR VISIT PLAN OF CARE VITAL SIGNS MEDICATIONS Unknown Medications RESULTS No Results PROCEDURES Procedure Date Ordered Result Body Site THER/PROPH/DIAG INJ, SC/IM May 23, 2013 Medroxyprogesterone inj May 23, 2013 URINE TEST May 23, 2013 INSTRUCTIONS MEDICATIONS ADMINISTERED No Known Medications MEDICAL (GENERAL) HISTORY Type Description Date Medical History Gonorrhea Positive-Chlamydia -Tyrone ated Medical History Chlamydia infection Medical History Chlamydia infection Surgical History T&A
--- OUTSIDE RECORDS SUMMARY | 2020-01-28 12:15 | XMS REPORT ---
Author Author Farzana Casillas Organization [facility] Address [address] [place] [address] Care Team Providers Care Manager Sharepoint Name Role Phone MATT Casillas Unavailable PROBLEMS Type Condition ICD9-CM Code [id number] Code Onset Dates Condition S tatus SNOMED Code Problem Costochondritis M94.0 Active 6410 9004 Problem Hematochezia K92.1 Active 0166462 08 Problem Gastritis, presence of bleed ing unspecified, unspecified chronicity, unspecified gastritis type K29.70 Active 4 584897 Problem Subacute vaginitis N76.1 Active 1 9527828323736435 Problem Sore throat J02.9 Active 62391108 3 Problem Amenorrhea due to Depo Provera N91.2 Active 21150116 Problem Routine gynecological examination Z01.419 Active 666710343 Problem Postprandial abdominal pain in left upper quadrant R10.12 Active 625804027 Problem History of UTI Z87.440 Active 37687 54108144 Problem Hematemesis K92.0 Active 7538121 Problem Abdominal pain, unspecified location R10.9 Active 83958948 ALLERGIES No Information ENCOUNTERS Encounter Location Date Diagnosis [facility] [address] [facility] [id number] [address] [place] [address] May, [facility] [address] [facility] [id number] [address] [place] [address] May, Sexually transmitted disease exposure Z20.2 [facility] [address] [facility] [id number] [address] [place] [address] 09 Jul, 2017 Cough in adult R05 and Acute nasopharyngitis J00 [facility] [address] [facility] [id number] [address] [place] [address] May, Routine screening for STI (s exually transmitted infection) Z11.3 ; Amenorrhea due to Depo Provera N91.2 and Encounter for counseling regarding contraception Z30.09 [place] [address] [id number] [address] [place] [address] 07 Feb, 2017 [facility] [address] [id number] [address] [place] [address] Feb, [facility] [address] [id number] [address] [place] [address] Jan, Routine screening for STI (s exually transmitted infection) Z11.3 [place] [address] [id number] [address] [place] [address] Nov, Encounter for Depo-Provera c ontraception Z30.42 [facility] [address] [id number] [address] [place] [address] Aug, Routine screening for STI (s exually transmitted infection) Z11.3 [place] [address] [id number] [address] [place] [address] Aug, Routine screening for STI (s exually transmitted infection) Z11.3 [place] [address] [id number] [address] [place] [address] Aug, [facility] [address] [id number] [address] [place] [address] Aug, Routine screening for STI (s exually transmitted infection) Z11.3 ; Encounter for Depo-Provera contraception Z30.42 ; Depot contraception Z30.40 and Encounter for counseling regarding contraception Z30.09 [facility] [address] [id number] [address] [place] [address] Jul, Pharyngitis due to other org anism J02.8 [facility] [address] [id number] [address] [place] [address] May, Encounter for Depo-Provera c ontraception Z30.42 [facility] [address] [id number] [address] [place] [address] May, [place] [address] [facility] [id number] [address] [place] [address] Apr, Subacute vaginitis N76.1 [facility] [address] [facility] [id number] [address] [place] [address] Mar, [place] [address] [place] [id number] [address] [place] [address] Mar, Hematochezia K92.1 [place] [address] [facility] [id number] [address] [place] [address] Mar, [place] [address] [place] [id number] [place] [address] Mar, Abdominal pain, unspecified location R10.9 ; Hematochezia K92.1 ; Hematemesis K92.0 and History of UTI Z87.440 [place] [address] [place] [id number] [address] [place] [address] Feb, Hematochezia K92.1 ; Encount er for Depo-Provera contraception Z30.42 ; Postprandial abdominal pain in left upper quadrant R10.12 ; Postprandial abdominal pain in right upper quadrant R10.11 and Gastritis, presence of bleeding unspecified, unspecified chronicity, unspecified gastritis type K29.70 [place] [address] [place] [id number] [address] [place] [address] Jan, Costochondritis M94.0 and So re throat J02.9 [place] [address] [facility] [id number] [address] [place] [address] Dec, Rectal bleeding K62.5 [place] [address] [place] [id number] [place] [address] Dec, [place] [address] [place] [id number] [address] [place] [address] Nov, [place] [address] [address] Nov, Routine gynecological examin ation Z01.419 ; Encounter for surveillance of injectable contraceptive Z30.42 and Encounter for Depo-Provera contraception Z30.42 [facility] [address] [id number] [address] [place] [address] Aug, Encounter for Depo-Provera c ontraception Z30.42 [facility] [address] [id number] [address] [place] [address] May, Encounter for Depo-Provera c ontraception Z30.42 [facility] [address] [id number] [address] [place] [address] Feb, Unspecified contraceptive ma nagement V25.9 [facility] [address] [id number] [address] [place] [address] Dec, TDAP DX V06.1 [facility] [address] [id number] [address] [place] [address] Nov, Encounter for contraceptive management V25.9 [facility] [address] [id number] [address] [place] [address] Sep, [facility] [address] [id number] [address] [place] [address] Sep, [facility] [address] [id number] [address] [place] [address] Aug, [facility] [address] [id number] [address] [place] [address] Aug, [facility] [address] [id number] [address] [place] [address] Jul, [facility] [address] [id number] [address] [place] [address] Jul, [facility] [address] [id number] [address] [place] [address] Jun, [facility] [address] [id number] [address] [place] [address] Jun, [facility] [address] [id number] [address] [place] [address], [place] [address] Mar, [facility] [address] [id number] [address] [place] [address], [place] [address] Mar, [facility] [address] [id number] [address] [place] [address], [place] [address] Dec, [facility] [address] [id number] [address] [place] [address], [place] [address] Dec, [facility] [address] [id number] [address] [place] [address], [place] [address] Nov, [facility] [address] [id number] [address] [place] [address], [place] [address] Nov, [facility] [address] [id number] [address] [place] [address], [place] [address] Aug, [facility] [address] [id number] [address] [place] [address], [place] [address] Aug, [facility] [address] [id number] [address] [place] [address], [place] [address] May, [facility] [address] [id number] [address] [place] [address], [place] [address] May, [facility] [address] [id number] [address] [place] [address], [place] [address] Feb, [facility] [address] [id number] [address] [place] [address], [place] [address] Nov, [facility] [address] [id number] [address] [place] [address], [place] [address] Aug, [facility] [address] [id number] [address] [place] [address], [place] [address] Apr, [facility] [address] [id number] [address] [place] [address], [place] [address] Apr, [facility] [address] [id number] [address] [place] [address] Apr, IMMUNIZATIONS No Known Immunizations SOCIAL HISTORY Never Assessed REASON FOR VISIT PLAN OF CARE VITAL SIGNS Height 60 in 2012-09-15 Weight 144.31 lbs 2012-09-15 Temperature 99.7 degrees Fahrenheit 2012-09-15 Heart Rate 80 bpm 2012-09-15 Respiratory Rate 18 2012-09-15 Blood pressure systolic 120 mmHg 2012-09-15 Blood pressure diastolic 80 mmHg 2012-09-15 MEDICATIONS Unknown Medications RESULTS No Results PROCEDURES Procedure Date Ordered Result Body Site THER/PROPH/DIAG INJ, SC/IM September 15, 2012 Medroxyprogesterone inj September 15, 2012 URINE TEST September 15, 2012 INSTRUCTIONS MEDICATIONS ADMINISTERED No Known Medications MEDICAL (GENERAL) HISTORY Type Description Date Medical History Gonorrhea Positive-Chlamydia -Tyrone ated Medical History Chlamydia infection Medical History Chlamydia infection Surgical History T&A
--- OUTSIDE RECORDS SUMMARY | 2020-01-28 12:15 | XMS REPORT ---
Author Author Jericho Toussaintlissrupert Doctor Organization [facility] Address Unknown Phone Unavailable Care Team Providers Care Heel Washer Stringing Machine Operator Name Role Phone Migration, Doctor Unavailable Unavailable PROBLEMS Type Condition ICD9-CM Code CGP20-YD Code Onset Dates Condition S tatus SNOMED Code Problem Costochondritis M94.0 Active 6410 9004 Problem Hematochezia K92.1 Active 7166518 08 Problem Gastritis, presence of bleed ing unspecified, unspecified chronicity, unspecified gastritis type K29.70 Active 4 643562 Problem Subacute vaginitis N76.1 Active 1 5222375630171914 Problem Sore throat J02.9 Active 51924413 3 Problem Amenorrhea due to Depo Provera N91.2 Active 98155999 Problem Routine gynecological examination Z01.419 Active 623770776 Problem Postprandial abdominal pain in left upper quadrant R10.12 Active 863468041 Problem History of UTI Z87.440 Active 95330 86572446 Problem Hematemesis K92.0 Active 5424481 Problem Abdominal pain, unspecified location R10.9 Active 15650434 ALLERGIES No Information ENCOUNTERS Encounter Location Date Diagnosis [facility] [address] [id number] [address] [place] [id number] 17 May, 2018 [facility] [id number] [place] [address] May, Sexually transmitted disease exposure Z20.2 [facility] [address] [facility] [id number] [address] [place] [phone] 09 Jul, 2017 Cough in adult R05 and Acute nasopharyngitis J00 [facility] [address] [id number] [address] [place] [phone] 05 May, 2017 Routine screening for STI (s exually transmitted infection) Z11.3 ; Amenorrhea due to Depo Provera N91.2 and Encounter for counseling regarding contraception Z30.09 [facility] [address] [facility] [id number] [address] [place] [address] Feb, [facility] [address] [id number] [address] [place] [address] Feb, [facility] [address] [facility] [id number] [address] [place] [address] Jan, Routine screening for STI (s exually transmitted infection) Z11.3 [facility] [address] [id number] [address] [place] [address] Nov, Encounter for Depo-Provera c ontraception Z30.42 [place] [address] [facility] [id number] [address] [place] [address] Aug, Routine screening for STI (s exually transmitted infection) Z11.3 [place] [address] [facility] [id number] [address] [place] [address] Aug, Routine screening for STI (s exually transmitted infection) Z11.3 [facility] [address] [id number] [address] [place] [address] Aug, [facility] [address] [facility] [id number] [address] [place] [address] Aug, Routine screening for STI (s exually transmitted infection) Z11.3 ; Encounter for Depo-Provera contraception Z30.42 ; Depot contraception Z30.40 and Encounter for counseling regarding contraception Z30.09 [facility] [address] [id number] [address] [place] [phone] Jul, Pharyngitis due to other org anism J02.8 [facility] [address] [id number] [address] [place] [address] May, Encounter for Depo-Provera c ontraception Z30.42 [facility] [address] [facility] [id number] [address] [place] [address] May, [facility] [address] [facility] [id number] [address] [place] [address] Apr, Subacute vaginitis N76.1 [place] [address] [facility] [id number] [address] [place] [phone] Mar, [place] [address] [facility] [id number] [address] [place] [address] Mar, Hematochezia K92.1 [place] [address] [id number] [address] [place] [address] Mar, [place] [address] [facility] [id number] [address] [place] [address] Mar, Abdominal pain, unspecified location R10.9 ; Hematochezia K92.1 ; Hematemesis K92.0 and History of UTI Z87.440 [place] [address] [id number] [address] [place] [address] Feb, Hematochezia K92.1 ; Encount er for Depo-Provera contraception Z30.42 ; Postprandial abdominal pain in left upper quadrant R10.12 ; Postprandial abdominal pain in right upper quadrant R10.11 and Gastritis, presence of bleeding unspecified, unspecified chronicity, unspecified gastritis type K29.70 [place] [address] [id number] [address] [place] [address] Jan, Costochondritis M94.0 and So re throat J02.9 [place] [address] [id number] [address] [place] [address] Dec, Rectal bleeding K62.5 [place] [address] [facility] [id number] [address] [place] [address] Dec, [place] [address] [id number] [address] [place] [phone] Nov, [place] [address] [facility] [id number] [address] [place] [address] Nov, Routine gynecological examin ation Z01.419 ; Encounter for surveillance of injectable contraceptive Z30.42 and Encounter for Depo-Provera contraception Z30.42 [facility] [address] [id number] [address] [place] [address] 09 Aug, 2015 Encounter for Depo-Provera c ontraception Z30.42 [facility] [address] [id number] [address] [place] [address] 09 May, 2015 Encounter for Depo-Provera c ontraception Z30.42 [facility] [address] [id number] [address] [place] [address] Feb, Unspecified contraceptive ma nagement V25.9 [facility] [address] [id number] [address] [place] [address] Dec, TDAP DX V06.1 [facility] [address] [id number] [address] [place] [address] Nov, Encounter for contraceptive management V25.9 [facility] [address] [id number] [address] [place] [address] Sep, [facility] [address] [id number] [address] [place] [address] Sep, [facility] [address] [id number] [address] [place] [address] Aug, [facility] [address] [id number] [address] [place] [address] Aug, [facility] [address] [id number] [address] [place] [phone] Jul, [facility] [address] [id number] [address] [place] [address] Jul, [facility] [address] [id number] [address] [place] [address] Jun, [facility] [address] [id number] [address] [place] [phone] Jun, [facility] [address] [id number] [address] [place] [address] Mar, [facility] [address] [id number] [address] [place] [address] Mar, [facility] [address] [id number] [address] [place] [address] Dec, [facility] [address] [id number] [address] [place] [address] Dec, [facility] [address] [id number] [address] [place] [address] Nov, [facility] [address] [id number] [address] [place] [address] Nov, [facility] [address] [id number] [address] [place] [phone] Aug, [facility] [address] [id number] [address] [place] [address] Aug, [facility] [address] [id number] [address] [place] [phone] May, [facility] [address] [id number] [address] [place] [address] May, [facility] [address] [id number] [address] [place] [address] Feb, [facility] [address] [id number] [address] [place] [address] Nov, [facility] [address] [id number] [address] [place] [address] Aug, [facility] [address] [id number] [address] [place] [address] Apr, [facility] [address] [id number] [address] [place] [address] Apr, [facility] [address] [id number] [address] [place] [address] Apr, IMMUNIZATIONS No Known Immunizations SOCIAL HISTORY Never Assessed REASON FOR VISIT PLAN OF CARE VITAL SIGNS MEDICATIONS Unknown Medications RESULTS No Results PROCEDURES Procedure Date Ordered Result Body Site THER/PROPH/DIAG INJ, SC/IM December 07, 2012 Medroxyprogesterone inj December 07, 2012 URINE TEST December 07, 2012 INSTRUCTIONS MEDICATIONS ADMINISTERED No Known Medications MEDICAL (GENERAL) HISTORY Type Description Date Medical History Gonorrhea Positive-Chlamydia -Tyrone ated Medical History Chlamydia infection Medical History Chlamydia infection Surgical History T&A
--- OUTSIDE RECORDS SUMMARY | 2020-01-28 12:16 | XMS REPORT ---
Author Author Farzana Toussaint Doctor Organization [facility] Address Unknown Phone Unavailable Care Team Providers Care Central Supply Clerk Name Role Phone Migration, Doctor Unavailable Unavailable PROBLEMS Type Condition ICD9-CM Code RMD58-GX Code Onset Dates Condition S tatus SNOMED Code Problem Costochondritis M94.0 Active 6410 9004 Problem Hematochezia K92.1 Active 2372401 08 Problem Gastritis, presence of bleed ing unspecified, unspecified chronicity, unspecified gastritis type K29.70 Active 4 355768 Problem Subacute vaginitis N76.1 Active 1 2218361975052017 Problem Sore throat J02.9 Active 41079875 3 Problem Amenorrhea due to Depo Provera N91.2 Active 26434105 Problem Routine gynecological examination Z01.419 Active 905513774 Problem Postprandial abdominal pain in left upper quadrant R10.12 Active 939851220 Problem History of UTI Z87.440 Active 53499 62395241 Problem Hematemesis K92.0 Active 3325059 Problem Abdominal pain, unspecified location R10.9 Active 69275840 ALLERGIES No Information ENCOUNTERS Encounter Location Date Diagnosis [facility] [id number] [place] [address] 17 May, 2018 [facility] [address] [place] [address] May, Sexually transmitted disease exposure Z20.2 [facility] [address] [facility] [id number] [address] [place] [address] 09 Jul, 2017 Cough in adult R05 and Acute nasopharyngitis J00 [facility] [address] [id number] [place] [address] 05 May, 2017 Routine screening for STI (s exually transmitted infection) Z11.3 ; Amenorrhea due to Depo Provera N91.2 and Encounter for counseling regarding contraception Z30.09 [facility] [address] [facility] [id number] [address] [place] [address] Feb, [facility] [address] [id number] [address] [place] [address] Feb, [facility] [address] [facility] [id number] [address] [place] [address] Jan, Routine screening for STI (s exually transmitted infection) Z11.3 [facility] [address] [id number] [address] [place] [address] Nov, Encounter for Depo-Provera c ontraception Z30.42 [place] [address] [facility] [id number] [address] [place] [address] Aug, Routine screening for STI (s exually transmitted infection) Z11.3 [place] [address] [facility] [id number] [address] [place] [address] Aug, Routine screening for STI (s exually transmitted infection) Z11.3 [facility] [address] [id number] [address] [place] [address] Aug, [facility] [address] [facility] [id number] [address] [place] [address] Aug, Routine screening for STI (s exually transmitted infection) Z11.3 ; Encounter for Depo-Provera contraception Z30.42 ; Depot contraception Z30.40 and Encounter for counseling regarding contraception Z30.09 [facility] [address] [id number] [address] [place] [address] Jul, Pharyngitis due to other org anism J02.8 [facility] [address] [id number] [address] [place] [address] May, Encounter for Depo-Provera c ontraception Z30.42 [facility] [address] [facility] [id number] [address] [place] [address] May, [facility] [address] [facility] [id number] [address] [place] [address] Apr, Subacute vaginitis N76.1 [place] [address] [facility] [id number] [address] [place] [address] Mar, [place] [address] [facility] [id number] [address] [place] [address] Mar, Hematochezia K92.1 [place] [address] [place] [id number] [place] [address] Mar, [place] [address] [facility] [id number] [address] [place] [address] Mar, Abdominal pain, unspecified location R10.9 ; Hematochezia K92.1 ; Hematemesis K92.0 and History of UTI Z87.440 [place] [address] [place] [id number] [place] [address] Feb, Hematochezia K92.1 ; Encount er for Depo-Provera contraception Z30.42 ; Postprandial abdominal pain in left upper quadrant R10.12 ; Postprandial abdominal pain in right upper quadrant R10.11 and Gastritis, presence of bleeding unspecified, unspecified chronicity, unspecified gastritis type K29.70 [place] [address] [place] [id number] [place] [address] Jan, Costochondritis M94.0 and So re throat J02.9 [place] [address] [place] [id number] [place] [address] Dec, Rectal bleeding K62.5 [place] [address] [facility] [id number] [address] [place] [address] Dec, [place] [address] [place] [id number] [place] [address] Nov, [place] [address] [facility] [id number] [address] [place] [address] Nov, Routine gynecological examin ation Z01.419 ; Encounter for surveillance of injectable contraceptive Z30.42 and Encounter for Depo-Provera contraception Z30.42 [facility] [address] [id number] [address] [place] [address] 09 Aug, 2015 Encounter for Depo-Provera c ontraception Z30.42 [facility] [address] [id number] [address] [place] [address] 09 May, 2015 Encounter for Depo-Provera c ontraception Z30.42 [facility] [address] [id number] [address] [place] [address] Feb, Unspecified contraceptive ma nagement V25.9 [facility] [address] [id number] [address] [place] [address] Dec, TDAP DX V06.1 [facility] [address] [id number] [address] [place] [address] Nov, Encounter for contraceptive management V25.9 [facility] [address] [id number] [address] [place] [address] Sep, [facility] [address] [id number] [address] [place] [address] Sep, [facility] [address] [id number] [address] [place] [address] Aug, [facility] [address] [id number] [address] [place] [address] Aug, [facility] [address] [id number] [address] [place] [address] Jul, [facility] [address] [id number] [address] [place] [address] Jul, [facility] [address] [id number] [address] [place] [address] Jun, [facility] [address] [id number] [address] [place] [address] Jun, [facility] [address] [id number] [address] [place] [address] Mar, [facility] [address] [id number] [address] [place] [address] Mar, [facility] [address] [id number] [address] [place] [address] Dec, [facility] [address] [id number] [address] [place] [address] Dec, [facility] [address] [id number] [address] [place] [address] Nov, [facility] [address] [id number] [address] [place] [address] Nov, [facility] [address] [id number] [address] [place] [address] Aug, [facility] [address] [id number] [address] [place] [address] Aug, [facility] [address] [id number] [address] [place] [address] May, [facility] [address] [id number] [address] [place] [address] May, [facility] [address] [id number] [address] [place] [address] Feb, [facility] [address] [id number] [address] [place] [address] Nov, [facility] [address] [id number] [address] [place] [address] Aug, [facility] [address] [id number] [address] [place] [address] Apr, [facility] [address] [id number] [address] [place] [address] Apr, [facility] [address] [id number] [address] [place] [address] Apr, IMMUNIZATIONS No Known Immunizations SOCIAL HISTORY Never Assessed REASON FOR VISIT EMR[place] [place] PLAN OF CARE VITAL SIGNS MEDICATIONS Medication Instructions Dosage Frequency Start Date End Date Duration S tatus Augmentin 875-125 mg 1 tablet by Oral route 2 times pe r day for 7 day(s) Jul, Active Depo-Provera Contraceptive 150 mg/mL inj ect 150 mg by Intramuscular route every 3 months Aug, Active RESULTS No Results PROCEDURES No Known procedures INSTRUCTIONS MEDICATIONS ADMINISTERED No Known Medications MEDICAL (GENERAL) HISTORY Type Description Date Medical History Gonorrhea Positive-Chlamydia -Tyrone ated Medical History Chlamydia infection Medical History Chlamydia infection Surgical History T&A
--- OUTSIDE RECORDS SUMMARY | 2020-01-28 12:16 | XMS REPORT ---
Author Author Farzana Toussaint Doctor Organization [facility] Address Unknown Phone Unavailable Care Team Providers Care Head Turning Machine Operator Name Role Phone Migration, Doctor Unavailable Unavailable PROBLEMS Type Condition ICD9-CM Code GMO48-DR Code Onset Dates Condition S tatus SNOMED Code Problem Costochondritis M94.0 Active 6410 9004 Problem Hematochezia K92.1 Active 4601400 08 Problem Gastritis, presence of bleed ing unspecified, unspecified chronicity, unspecified gastritis type K29.70 Active 4 229829 Problem Subacute vaginitis N76.1 Active 1 [id number] Problem Sore throat J02.9 Active 00563417 3 Problem Amenorrhea due to Depo Provera N91.2 Active 97079994 Problem Routine gynecological examination Z01.419 Active 086343731 Problem Postprandial abdominal pain in left upper quadrant R10.12 Active 095163333 Problem History of UTI Z87.440 Active 80721 91060058 Problem Hematemesis K92.0 Active 9033212 Problem Abdominal pain, unspecified location R10.9 Active [id number] ALLERGIES No Information ENCOUNTERS Encounter Location Date Diagnosis [facility] [id number] [place] [phone] 17 May, 2018 [facility] [address] [place] [phone] May, Sexually transmitted disease exposure Z20.2 [facility] [address] [facility] [id number] [address] [place] [phone] 09 Jul, 2017 Cough in adult R05 and Acute nasopharyngitis J00 [facility] [address] [place] [id number] [place] [phone] 05 May, 2017 Routine screening for STI (s exually transmitted infection) Z11.3 ; Amenorrhea due to Depo Provera N91.2 and Encounter for counseling regarding contraception Z30.09 [facility] [address] [facility] [id number] [address] [place] [phone] Feb, [facility] [address] [id number] [address] [place] [phone] Feb, [facility] [address] [facility] [id number] [address] [place] [phone] Jan, Routine screening for STI (s exually transmitted infection) Z11.3 [facility] [address] [id number] [address] [place] [phone] Nov, Encounter for Depo-Provera c ontraception Z30.42 [place] [address] [facility] [id number] [address] [place] [phone] Aug, Routine screening for STI (s exually transmitted infection) Z11.3 [place] [address] [facility] [id number] [address] [place] [phone] Aug, Routine screening for STI (s exually transmitted infection) Z11.3 [facility] [address] [id number] [address] [place] [phone] Aug, [facility] [address] [facility] [id number] [address] [place] [phone] Aug, Routine screening for STI (s exually transmitted infection) Z11.3 ; Encounter for Depo-Provera contraception Z30.42 ; Depot contraception Z30.40 and Encounter for counseling regarding contraception Z30.09 [facility] [address] [id number] [address] [place] [id number] Jul, Pharyngitis due to other org anism J02.8 [facility] [address] [id number] [address] [place] [phone] May, Encounter for Depo-Provera c ontraception Z30.42 [facility] [address] [facility] [id number] [address] [place] [phone] May, [facility] [address] [facility] [id number] [address] [place] [phone] Apr, Subacute vaginitis N76.1 [place] [address] [facility] [id number] [address] [place] [phone] Mar, [place] [address] [address] [facility] [id number] [address] [place] [phone] Mar, Hematochezia K92.1 [place] [address] [place] [id number] [place] [phone] Mar, [place] [address] [facility] [id number] [address] [place] [phone] Mar, Abdominal pain, unspecified location R10.9 ; Hematochezia K92.1 ; Hematemesis K92.0 and History of UTI Z87.440 [place] [address] [place] [id number] [place] [phone] Feb, Hematochezia K92.1 ; Encount er for Depo-Provera contraception Z30.42 ; Postprandial abdominal pain in left upper quadrant R10.12 ; Postprandial abdominal pain in right upper quadrant R10.11 and Gastritis, presence of bleeding unspecified, unspecified chronicity, unspecified gastritis type K29.70 [place] [address] [place] [id number] [address] [place] [phone] Jan, Costochondritis M94.0 and So re throat J02.9 [place] [address] [place] [id number] [address] [place] [phone] Dec, Rectal bleeding K62.5 [place] [address] [facility] [id number] [address] [place] [phone] Dec, [place] [address] [place] [id number] [address] [place] [phone] Nov, [place] [address] [facility] [id number] [address] [place] [phone] Nov, Routine gynecological examin ation Z01.419 ; Encounter for surveillance of injectable contraceptive Z30.42 and Encounter for Depo-Provera contraception Z30.42 [facility] [address] [id number] [address] [place] [phone] 09 Aug, 2015 Encounter for Depo-Provera c ontraception Z30.42 [facility] [address] [id number] [address] [place] [phone] 09 May, 2015 Encounter for Depo-Provera c ontraception Z30.42 [facility] [address] [id number] [address] [place] [phone] Feb, Unspecified contraceptive ma nagement V25.9 [facility] [address] [id number] [address] [place] [phone] Dec, TDAP DX V06.1 [facility] [address] [id number] [address] [place] [phone] Nov, Encounter for contraceptive management V25.9 [facility] [address] [id number] [address] [place] [phone] Sep, [facility] [address] [id number] [address] [place] [phone] Sep, [facility] [address] [id number] [address] [place] [phone] Aug, [facility] [address] [id number] [address] [place] [phone] Aug, [facility] [address] [id number] [address] [place] [phone] Jul, [facility] [address] [id number] [address] [place] [phone] Jul, [facility] [address] [id number] [address] [place] [phone] Jun, [facility] [address] [id number] [address] [place] [phone] Jun, [facility] [address] [id number] [address] [place] [phone] Mar, [facility] [address] [id number] [address] [place] [phone] Mar, [facility] [address] [id number] [address] [place] [phone] Dec, [facility] [address] [id number] [address] [place] [phone] Dec, [facility] [address] [id number] [address] [place] [phone] Nov, [facility] [address] [id number] [address] [place] [phone] Nov, [facility] [address] [id number] [address] [place] [phone] Aug, [facility] [address] [id number] [address] [place] [phone] Aug, [facility] [address] [id number] [address] [place] [phone] May, [facility] [address] [id number] [address] [place] [phone] May, [facility] [address] [id number] [address] [place] [phone] Feb, [facility] [address] [id number] [address] [place] [phone] Nov, [facility] [address] [id number] [address] [place] [phone] Aug, [facility] [address] [id number] [address] [place] [phone] Apr, [facility] [address] [id number] [address] [place] [phone] Apr, [facility] [address] [id number] [address] [place] [phone] Apr, IMMUNIZATIONS No Known Immunizations SOCIAL HISTORY Never Assessed REASON FOR VISIT PLAN OF CARE VITAL SIGNS MEDICATIONS Unknown Medications RESULTS No Results PROCEDURES Procedure Date Ordered Result Body Site THER/PROPH/DIAG INJ, SC/IM September 07, 2014 Medroxyprogesterone inj September 07, 2014 URINE TEST September 07, 2014 INSTRUCTIONS MEDICATIONS ADMINISTERED No Known Medications MEDICAL (GENERAL) HISTORY Type Description Date Medical History Gonorrhea Positive-Chlamydia -Tyrone ated Medical History Chlamydia infection Medical History Chlamydia infection Surgical History T&A
--- OUTSIDE RECORDS SUMMARY | 2020-01-28 12:16 | XMS REPORT ---
Author Author Farzana Toussaint Doctor Organization [facility] Address Unknown Phone Unavailable Care Team Providers Care Infusion Therapy Nurse Name Role Phone Migration, Doctor Unavailable Unavailable PROBLEMS Type Condition ICD9-CM Code PDD22-UJ Code Onset Dates Condition S tatus SNOMED Code Problem Costochondritis M94.0 Active 6410 9004 Problem Hematochezia K92.1 Active 8195639 08 Problem Gastritis, presence of bleed ing unspecified, unspecified chronicity, unspecified gastritis type K29.70 Active 4 744848 Problem Subacute vaginitis N76.1 Active 1 6873665764100018 Problem Sore throat J02.9 Active 81375601 3 Problem Amenorrhea due to Depo Provera N91.2 Active 01038673 Problem Routine gynecological examination Z01.419 Active 742217456 Problem Postprandial abdominal pain in left upper quadrant R10.12 Active 121013732 Problem History of UTI Z87.440 Active 67392 05461780 Problem Hematemesis K92.0 Active 7139746 Problem Abdominal pain, unspecified location R10.9 Active 19921403 ALLERGIES No Information ENCOUNTERS Encounter Location Date Diagnosis [facility] [address] [place] [phone] 17 May, 2018 [facility] [address] [place] [phone] May, Sexually transmitted disease exposure Z20.2 [facility] [address] [facility] [id number] [address] [place] [phone] 09 Jul, 2017 Cough in adult R05 and Acute nasopharyngitis J00 [facility] [address] [place] [id number] [place] [phone] 05 May, 2017 Routine screening for STI (s exually transmitted infection) Z11.3 ; Amenorrhea due to Depo Provera N91.2 and Encounter for counseling regarding contraception Z30.09 [facility] [address] [facility] [id number] [address] [place] [phone] Feb, [facility] [address] [id number] [address] [place] [phone] Feb, [facility] [address] [facility] [id number] [address] [place] [phone] Jan, Routine screening for STI (s exually transmitted infection) Z11.3 [facility] [address] [id number] [address] [place] [phone] Nov, Encounter for Depo-Provera c ontraception Z30.42 [place] [address] [facility] [id number] [address] [place] [phone] Aug, Routine screening for STI (s exually transmitted infection) Z11.3 [place] [address] [facility] [id number] [address] [place] [phone] Aug, Routine screening for STI (s exually transmitted infection) Z11.3 [facility] [address] [id number] [address] [place] [phone] Aug, [facility] [address] [facility] [id number] [address] [place] [phone] Aug, Routine screening for STI (s exually transmitted infection) Z11.3 ; Encounter for Depo-Provera contraception Z30.42 ; Depot contraception Z30.40 and Encounter for counseling regarding contraception Z30.09 [facility] [address] [id number] [address] [place] [phone] Jul, Pharyngitis due to other org anism J02.8 [facility] [address] [id number] [address] [place] [phone] May, Encounter for Depo-Provera c ontraception Z30.42 [facility] [address] [facility] [id number] [address] [place] [phone] May, [facility] [address] [facility] [id number] [address] [place] [phone] Apr, Subacute vaginitis N76.1 [place] [address] [facility] [id number] [address] [place] [phone] Mar, [place] [address] [facility] [id number] [address] [place] [phone] Mar, Hematochezia K92.1 [place] [address] [place] [id number] [place] [phone] Mar, [place] [address] [facility] [id number] [address] [place] [phone] Mar, Abdominal pain, unspecified location R10.9 ; Hematochezia K92.1 ; Hematemesis K92.0 and History of UTI Z87.440 [place] [address] [address] [place] [id number] [place] [phone] Feb, Hematochezia K92.1 ; Encount er for Depo-Provera contraception Z30.42 ; Postprandial abdominal pain in left upper quadrant R10.12 ; Postprandial abdominal pain in right upper quadrant R10.11 and Gastritis, presence of bleeding unspecified, unspecified chronicity, unspecified gastritis type K29.70 [place] [address] [address] [place] [id number] [place] [phone] Jan, Costochondritis M94.0 and So re throat J02.9 [place] [address] [address] [place] [id number] [place] [phone] Dec, Rectal bleeding K62.5 [place] [address] [facility] [id number] [address] [place] [phone] Dec, [place] [address] [place] [id number] [place] [phone] Nov, [place] [address] [facility] [id number] [address] [place] [phone] Nov, Routine gynecological examin ation Z01.419 ; Encounter for surveillance of injectable contraceptive Z30.42 and Encounter for Depo-Provera contraception Z30.42 [facility] [address] [id number] [address] [place] [phone] 09 Aug, 2015 Encounter for Depo-Provera c ontraception Z30.42 [facility] [address] [id number] [address] [place] [phone] 09 May, 2015 Encounter for Depo-Provera c ontraception Z30.42 [facility] [address] [id number] [address] [place] [phone] Feb, Unspecified contraceptive ma nagement V25.9 [facility] [address] [id number] [address] [place] [phone] Dec, TDAP DX V06.1 [facility] [address] [id number] [address] [place] [phone] Nov, Encounter for contraceptive management V25.9 [facility] [address] [id number] [address] [place] [phone] Sep, [facility] [address] [id number] [address] [place] [phone] Sep, [facility] [address] [id number] [address] [place] [phone] Aug, [facility] [address] [id number] [address] [place] [phone] Aug, [facility] [address] [id number] [address] [place] [phone] Jul, [facility] [address] [id number] [address] [place] [phone] Jul, [facility] [address] [id number] [address] [place] [phone] Jun, [facility] [address] [id number] [address] [place] [phone] Jun, [facility] [address] [id number] [address] [place] [phone] Mar, [facility] [address] [id number] [address] [place] [phone] Mar, [facility] [address] [id number] [address] [place] [phone] Dec, [facility] [address] [id number] [address] [place] [phone] Dec, [facility] [address] [id number] [address] [place] [phone] Nov, [facility] [address] [id number] [address] [place] [phone] Nov, [facility] [address] [id number] [address] [place] [phone] Aug, [facility] [address] [id number] [address] [place] [phone] Aug, [facility] [address] [id number] [address] [place] [phone] May, [facility] [address] [id number] [address] [place] [phone] May, [facility] [address] [id number] [address] [place] [phone] Feb, [facility] [address] [id number] [address] [place] [phone] Nov, [facility] [address] [id number] [address] [place] [phone] Aug, [facility] [address] [id number] [address] [place] [phone] Apr, [facility] [address] [id number] [address] [place] [phone] Apr, [facility] [address] [id number] [address] [place] [phone] Apr, IMMUNIZATIONS No Known Immunizations SOCIAL HISTORY Never Assessed REASON FOR VISIT PLAN OF CARE VITAL SIGNS MEDICATIONS Unknown Medications RESULTS No Results PROCEDURES Procedure Date Ordered Result Body Site THER/PROPH/DIAG INJ, SC/IM Mar 26, 2014 Medroxyprogesterone inj Mar 26, 2014 URINE TEST Mar 26, 2014 INSTRUCTIONS MEDICATIONS ADMINISTERED No Known Medications MEDICAL (GENERAL) HISTORY Type Description Date Medical History Gonorrhea Positive-Chlamydia -Tyrone ated Medical History Chlamydia infection Medical History Chlamydia infection Surgical History T&A
--- OUTSIDE RECORDS SUMMARY | 2020-01-28 12:16 | XMS REPORT ---
Author Author Farzana Toussaint Doctor Organization [facility] Address Unknown Phone Unavailable Care Team Providers Care Telecommunications Officer Name Role Phone Migration, Doctor Unavailable Unavailable PROBLEMS Type Condition ICD9-CM Code [id number] Code Onset Dates Condition S tatus SNOMED Code Problem Costochondritis M94.0 Active 6410 9004 Problem Hematochezia K92.1 Active 5902593 08 Problem Gastritis, presence of bleed ing unspecified, unspecified chronicity, unspecified gastritis type K29.70 Active 4 638092 Problem Subacute vaginitis N76.1 Active 1 1705040801216621 Problem Sore throat J02.9 Active 01492279 3 Problem Amenorrhea due to Depo Provera N91.2 Active 87451771 Problem Routine gynecological examination Z01.419 Active 197656627 Problem Postprandial abdominal pain in left upper quadrant R10.12 Active 445487827 Problem History of UTI Z87.440 Active 90883 74936452 Problem Hematemesis K92.0 Active 2028286 Problem Abdominal pain, unspecified location R10.9 Active 41306249 ALLERGIES No Information ENCOUNTERS Encounter Location Date Diagnosis [facility] [place] [address] [place] [phone] 17 May, 2018 [facility] [place] [address] [place] [phone] May, Sexually transmitted disease exposure Z20.2 [facility] [address] [facility] [id number] [address] [place] [phone] 09 Jul, 2017 Cough in adult R05 and Acute nasopharyngitis J00 [facility] [place] [address] [place] [id number] [place] [phone] 05 May, 2017 Routine screening for STI (s exually transmitted infection) Z11.3 ; Amenorrhea due to Depo Provera N91.2 and Encounter for counseling regarding contraception Z30.09 [facility] [place] [address] [facility] [id number] [address] [place] [phone] Feb, [facility] [place] [address] [id number] [address] [place] [phone] Feb, [facility] [place] [address] [facility] [id number] [address] [place] [phone] Jan, Routine screening for STI (s exually transmitted infection) Z11.3 [facility] [place] [address] [id number] [address] [place] [phone] Nov, Encounter for Depo-Provera c ontraception Z30.42 [place] [address] [facility] [id number] [address] [place] [phone] Aug, Routine screening for STI (s exually transmitted infection) Z11.3 [place] [address] [facility] [id number] [address] [place] [phone] Aug, Routine screening for STI (s exually transmitted infection) Z11.3 [facility] [place] [address] [id number] [address] [place] [phone] Aug, [facility] [place] [address] [facility] [id number] [address] [place] [phone] Aug, Routine screening for STI (s exually transmitted infection) Z11.3 ; Encounter for Depo-Provera contraception Z30.42 ; Depot contraception Z30.40 and Encounter for counseling regarding contraception Z30.09 [facility] [address] [id number] [address] [place] [phone] Jul, Pharyngitis due to other org anism J02.8 [facility] [place] [address] [id number] [address] [place] [phone] May, Encounter for Depo-Provera c ontraception Z30.42 [facility] [place] [address] [facility] [id number] [address] [place] [phone] May, [facility] [place] [address] [facility] [id number] [address] [place] [phone] Apr, Subacute vaginitis N76.1 [place] [address] [facility] [id number] [address] [place] [phone] Mar, [place] [address] [facility] [id number] [address] [place] [phone] Mar, Hematochezia K92.1 [place] [address] [place] [id number] [place] [phone] Mar, [place] [address] [facility] [id number] [address] [place] [phone] Mar, Abdominal pain, unspecified location R10.9 ; Hematochezia K92.1 ; Hematemesis K92.0 and History of UTI Z87.440 [place] [address] [place] [id number] [place] [phone] Feb, Hematochezia K92.1 ; Encount er for Depo-Provera contraception Z30.42 ; Postprandial abdominal pain in left upper quadrant R10.12 ; Postprandial abdominal pain in right upper quadrant R10.11 and Gastritis, presence of bleeding unspecified, unspecified chronicity, unspecified gastritis type K29.70 [place] [address] [place] [id number] [place] [phone] Jan, Costochondritis M94.0 and So re throat J02.9 [place] [address] [place] [id number] [place] [phone] Dec, Rectal bleeding K62.5 [place] [address] [facility] [id number] [address] [place] [phone] Dec, [place] [address] [place] [id number] [place] [phone] Nov, [place] [address] [facility] [id number] [address] [place] [phone] Nov, Routine gynecological examin ation Z01.419 ; Encounter for surveillance of injectable contraceptive Z30.42 and Encounter for Depo-Provera contraception Z30.42 [facility] [place] [address] [id number] [address] [place] [phone] 09 Aug, 2015 Encounter for Depo-Provera c ontraception Z30.42 [facility] [place] [address] [id number] [address] [place] [phone] 09 May, 2015 Encounter for Depo-Provera c ontraception Z30.42 [facility] [place] [address] [id number] [address] [place] [phone] Feb, Unspecified contraceptive ma nagement V25.9 [facility] [place] [address] [id number] [address] [place] [phone] Dec, TDAP DX V06.1 [facility] [place] [address] [id number] [address] [place] [phone] Nov, Encounter for contraceptive management V25.9 [facility] [place] [address] [id number] [address] [place] [phone] Sep, [facility] [place] [address] [id number] [address] [place] [phone] Sep, [facility] [place] [address] [id number] [address] [place] [phone] Aug, [facility] [place] [address] [id number] [address] [place] [phone] Aug, [facility] [place] [address] [id number] [address] [place] [phone] Jul, [facility] [place] [address] [id number] [address] [place] [phone] Jul, [facility] [place] [address] [id number] [address] [place] [phone] Jun, [facility] [place] [address] [id number] [address] [place] [phone] Jun, [facility] [place] [address] [id number] [address] [place] [phone] Mar, [facility] [address] [id number] [address] [place] [phone] Mar, [facility] [address] [id number] [address] [place] [phone] Dec, [facility] [address] [id number] [address] [place] [phone] Dec, [facility] [address] [id number] [address] [place] [phone] Nov, [facility] [address] [id number] [address] [place] [phone] Nov, [facility] [address] [id number] [address] [place] [phone] Aug, [facility] [address] [id number] [address] [place] [phone] Aug, [facility] [address] [id number] [address] [place] [phone] May, [facility] [address] [id number] [address] [place] [phone] May, [facility] [address] [id number] [address] [place] [phone] Feb, [facility] [address] [id number] [address] [place] [phone] Nov, [facility] [address] [id number] [address] [place] [phone] Aug, [facility] [address] [id number] [address] [place] [phone] Apr, [facility] [address] [id number] [address] [place] [phone] Apr, [facility] [address] [id number] [address] [place] [phone] Apr, IMMUNIZATIONS No Known Immunizations SOCIAL HISTORY Never Assessed REASON FOR VISIT PLAN OF CARE VITAL SIGNS Height 60 in 2014-07-29 Weight 179.2 lbs 2014-07-29 Temperature 99.2 degrees Fahrenheit 2014-07-29 Heart Rate 96 bpm 2014-07-29 Respiratory Rate 18 2014-07-29 Blood pressure systolic 110 mmHg 2014-07-29 Blood pressure diastolic 78 mmHg 2014-07-29 MEDICATIONS Unknown Medications RESULTS No Results PROCEDURES No Known procedures INSTRUCTIONS MEDICATIONS ADMINISTERED No Known Medications MEDICAL (GENERAL) HISTORY Type Description Date Medical History Gonorrhea Positive-Chlamydia -Tyrone ated Medical History Chlamydia infection Medical History Chlamydia infection Surgical History T&A
--- OUTSIDE RECORDS SUMMARY | 2020-01-28 12:16 | XMS REPORT ---
Author Author Farzana Toussaint Doctor Organization [facility] Address Unknown Phone Unavailable Care Team Providers Care Tubing Tester Name Role Phone Migration, Doctor Unavailable Unavailable PROBLEMS Type Condition ICD9-CM Code XFZ21-HQ Code Onset Dates Condition S tatus SNOMED Code Problem Costochondritis M94.0 Active 6410 9004 Problem Hematochezia K92.1 Active 2720281 08 Problem Gastritis, presence of bleed ing unspecified, unspecified chronicity, unspecified gastritis type K29.70 Active 4 584906 Problem Subacute vaginitis N76.1 Active 1 2707674519998477 Problem Sore throat J02.9 Active 67073347 3 Problem Amenorrhea due to Depo Provera N91.2 Active 23791202 Problem Routine gynecological examination Z01.419 Active 677440010 Problem Postprandial abdominal pain in left upper quadrant R10.12 Active 588386825 Problem History of UTI Z87.440 Active 34603 59431902 Problem Hematemesis K92.0 Active 3954445 Problem Abdominal pain, unspecified location R10.9 Active 49351260 ALLERGIES No Information ENCOUNTERS Encounter Location Date Diagnosis [facility] [id number] [place] [phone] 17 May, 2018 [facility] [address] [place] [phone] May, Sexually transmitted disease exposure Z20.2 [facility] [address] [facility] [id number] [address] [place] [phone] 09 Jul, 2017 Cough in adult R05 and Acute nasopharyngitis J00 [facility] [address] [place] [id number] [place] [phone] 05 May, 2017 Routine screening for STI (s exually transmitted infection) Z11.3 ; Amenorrhea due to Depo Provera N91.2 and Encounter for counseling regarding contraception Z30.09 [facility] [address] [facility] [id number] [address] [place] [phone] Feb, [facility] [address] [id number] [address] [place] [phone] Feb, [facility] [address] [facility] [id number] [address] [place] [phone] Jan, Routine screening for STI (s exually transmitted infection) Z11.3 [facility] [address] [id number] [address] [place] [phone] Nov, Encounter for Depo-Provera c ontraception Z30.42 [place] [address] [facility] [id number] [address] [place] [phone] Aug, Routine screening for STI (s exually transmitted infection) Z11.3 [place] [address] [facility] [id number] [address] [place] [phone] Aug, Routine screening for STI (s exually transmitted infection) Z11.3 [facility] [address] [id number] [address] [place] [phone] Aug, [facility] [address] [facility] [id number] [address] [place] [phone] Aug, Routine screening for STI (s exually transmitted infection) Z11.3 ; Encounter for Depo-Provera contraception Z30.42 ; Depot contraception Z30.40 and Encounter for counseling regarding contraception Z30.09 [facility] [address] [id number] [address] [place] [phone] Jul, Pharyngitis due to other org anism J02.8 [facility] [address] [id number] [address] [place] [phone] May, Encounter for Depo-Provera c ontraception Z30.42 [facility] [address] [facility] [id number] [address] [place] [phone] May, [facility] [address] [facility] [id number] [address] [place] [phone] Apr, Subacute vaginitis N76.1 [place] [address] [facility] [id number] [address] [place] [phone] Mar, [place] [address] [facility] [id number] [address] [place] [phone] Mar, Hematochezia K92.1 [place] [address] [place] [id number] [place] [phone] Mar, [place] [address] [facility] [id number] [address] [place] [phone] Mar, Abdominal pain, unspecified location R10.9 ; Hematochezia K92.1 ; Hematemesis K92.0 and History of UTI Z87.440 [place] [address] [place] [id number] [place] [phone] Feb, Hematochezia K92.1 ; Encount er for Depo-Provera contraception Z30.42 ; Postprandial abdominal pain in left upper quadrant R10.12 ; Postprandial abdominal pain in right upper quadrant R10.11 and Gastritis, presence of bleeding unspecified, unspecified chronicity, unspecified gastritis type K29.70 [place] [address] [place] [id number] [place] [phone] Jan, Costochondritis M94.0 and So re throat J02.9 [place] [address] [place] [id number] [place] [phone] Dec, Rectal bleeding K62.5 [place] [address] [facility] [id number] [address] [place] [phone] Dec, [place] [address] [place] [id number] [place] [phone] Nov, [place] [address] [facility] [id number] [address] [place] [address] Nov, Routine gynecological examin ation Z01.419 ; Encounter for surveillance of injectable contraceptive Z30.42 and Encounter for Depo-Provera contraception Z30.42 [facility] [address] [id number] [address] [place] [phone] 09 Aug, 2015 Encounter for Depo-Provera c ontraception Z30.42 [facility] [address] [id number] [address] [place] [phone] 09 May, 2015 Encounter for Depo-Provera c ontraception Z30.42 [facility] [address] [id number] [address] [place] [phone] Feb, Unspecified contraceptive ma nagement V25.9 [facility] [address] [id number] [address] [place] [phone] Dec, TDAP DX V06.1 [facility] [address] [id number] [address] [place] [phone] Nov, Encounter for contraceptive management V25.9 [facility] [address] [id number] [address] [place] [phone] Sep, [facility] [address] [id number] [address] [place] [phone] Sep, [facility] [address] [id number] [address] [place] [id number] Aug, [facility] [address] [id number] [address] [place] [phone] Aug, [facility] [address] [id number] [address] [place] [phone] Jul, [facility] [address] [id number] [address] [place] [phone] Jul, [facility] [address] [id number] [address] [place] [phone] Jun, [facility] [address] [id number] [address] [place] [phone] Jun, [facility] [address] [id number] [address] [place] [phone] Mar, [facility] [address] [id number] [address] [place] [phone] Mar, [facility] [address] [id number] [address] [place] [phone] Dec, [facility] [address] [id number] [address] [place] [phone] Dec, [facility] [address] [id number] [address] [place] [phone] Nov, [facility] [address] [id number] [address] [place] [phone] Nov, [facility] [address] [id number] [address] [place] [phone] Aug, [facility] [address] [id number] [address] [place] [phone] Aug, [facility] [address] [id number] [address] [place] [phone] May, [facility] [address] [id number] [address] [place] [phone] May, [facility] [address] [id number] [address] [place] [phone] Feb, [facility] [address] [id number] [address] [place] [phone] Nov, [facility] [address] [id number] [address] [place] [phone] Aug, [facility] [address] [id number] [address] [place] [phone] Apr, [facility] [address] [id number] [address] [place] [phone] Apr, [facility] [address] [id number] [address] [place] [phone] Apr, IMMUNIZATIONS No Known Immunizations SOCIAL HISTORY Never Assessed REASON FOR VISIT [facility] PLAN OF CARE VITAL SIGNS MEDICATIONS Unknown Medications RESULTS No Results PROCEDURES No Known procedures INSTRUCTIONS MEDICATIONS ADMINISTERED No Known Medications MEDICAL (GENERAL) HISTORY Type Description Date Medical History Gonorrhea Positive-Chlamydia -Tyrone ated Medical History Chlamydia infection Medical History Chlamydia infection Surgical History T&A
--- OUTSIDE RECORDS SUMMARY | 2020-01-28 12:16 | XMS REPORT ---
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 Name Role Phone Migration, Doctor Unavailable Unavailable PROBLEMS Type Condition ICD9-CM Code PRX41-HW Code Onset Dates Condition S tatus SNOMED Code Problem Costochondritis M94.0 Active 6410 9004 Problem Hematochezia K92.1 Active 4214651 08 Problem Gastritis, presence of bleed ing unspecified, unspecified chronicity, unspecified gastritis type K29.70 Active 4 159480 Problem Subacute vaginitis N76.1 Active 1 7827920860218160 Problem Sore throat J02.9 Active 80662221 3 Problem Amenorrhea due to Depo Provera N91.2 Active 09697242 Problem Routine gynecological examination Z01.419 Active 250070405 Problem Postprandial abdominal pain in left upper quadrant R10.12 Active 060721787 Problem History of UTI Z87.440 Active 60710 03026554 Problem Hematemesis K92.0 Active 0904802 Problem Abdominal pain, unspecified location R10.9 Active [id number] ALLERGIES No Information ENCOUNTERS Encounter Location Date Diagnosis [facility] [address] [place] [id number] 17 May, 2018 [facility] [address] [place] [phone] May, Sexually transmitted disease exposure Z20.2 [facility] [address] [facility] [address] [facility] [id number] [address] [place] [id number] 09 Jul, 2017 Cough in adult R05 and Acute nasopharyngitis J00 [facility] [address] [place] [id number] [place] [id number] 05 May, 2017 Routine screening for STI (s exually transmitted infection) Z11.3 ; Amenorrhea due to Depo Provera N91.2 and Encounter for counseling regarding contraception Z30.09 [facility] [address] [facility] [id number] [address] [place] [phone] Feb, [facility] [address] [id number] [address] [place] [address] Feb, [facility] [address] [facility] [id number] [address] [place] [phone] Jan, Routine screening for STI (s exually transmitted infection) Z11.3 [facility] [address] [id number] [address] [place] [phone] Nov, Encounter for Depo-Provera c ontraception Z30.42 [place] [address] [facility] [facility] [id number] [address] [place] [phone] Aug, Routine screening for STI (s exually transmitted infection) Z11.3 [place] [address] [facility] [facility] [id number] [address] [place] [phone] Aug, Routine screening for STI (s exually transmitted infection) Z11.3 [facility] [address] [id number] [address] [place] [phone] Aug, [facility] [address] [address] [facility] [id number] [address] [place] [phone] Aug, Routine screening for STI (s exually transmitted infection) Z11.3 ; Encounter for Depo-Provera contraception Z30.42 ; Depot contraception Z30.40 and Encounter for counseling regarding contraception Z30.09 [facility] [address] [id number] [address] [place] [phone] Jul, Pharyngitis due to other org anism J02.8 [facility] [address] [id number] [address] [place] [phone] May, Encounter for Depo-Provera c ontraception Z30.42 [facility] [address] [address] [facility] [id number] [address] [place] [phone] May, [facility] [address] [facility] [id number] [address] [place] [phone] Apr, Subacute vaginitis N76.1 [place] [address] [facility] [facility] [id number] [address] [place] [phone] Mar, [place] [address] [facility] [facility] [id number] [address] [place] [phone] Mar, Hematochezia K92.1 [place] [address] [place] [id number] [place] [phone] Mar, [place] [address] [facility] [facility] [id number] [address] [place] [address] Mar, Abdominal pain, unspecified location R10.9 ; Hematochezia K92.1 ; Hematemesis K92.0 and History of UTI Z87.440 [place] [address] [place] [id number] [place] [phone] Feb, Hematochezia K92.1 ; Encount er for Depo-Provera contraception Z30.42 ; Postprandial abdominal pain in left upper quadrant R10.12 ; Postprandial abdominal pain in right upper quadrant R10.11 and Gastritis, presence of bleeding unspecified, unspecified chronicity, unspecified gastritis type K29.70 [place] [address] [place] [id number] [address] [place] [phone] Jan, Costochondritis M94.0 and So re throat J02.9 [place] [address] [place] [id number] [address] [place] [phone] Dec, Rectal bleeding K62.5 [place] [address] [facility] [id number] [address] [place] [phone] Dec, [place] [address] [place] [id number] [address] [place] [phone] Nov, [place] [address] [facility]AMED [facility] [id number] [address] [place] [phone] Nov, Routine gynecological examin ation Z01.419 ; Encounter for surveillance of injectable contraceptive Z30.42 and Encounter for Depo-Provera contraception Z30.42 [facility] [address] [id number] [address] [place] [phone] 09 Aug, 2015 Encounter for Depo-Provera c ontraception Z30.42 [facility] [address] [id number] [address] [place] [phone] 09 May, 2015 Encounter for Depo-Provera c ontraception Z30.42 [facility] [address] [id number] [address] [place] [phone] Feb, Unspecified contraceptive ma nagement V25.9 [facility] [address] [id number] [address] [place] [phone] Dec, TDAP DX V06.1 [facility] [address] [id number] [address] [place] [phone] Nov, Encounter for contraceptive management V25.9 [facility] [address] [id number] [address] [place] [phone] Sep, [facility] [address] [id number] [address] [place] [phone] Sep, [facility] [address] [id number] [address] [place] [phone] Aug, [facility] [address] [id number] [address] [place] [phone] Aug, [facility] [address] [id number] [address] [place] [phone] Jul, [facility] [address] [id number] [address] [place] [phone] Jul, [facility] [address] [id number] [address] [place] [phone] Jun, [facility] [address] [id number] [address] [place] [phone] Jun, [facility] [address] [id number] [address] [place] [phone] Mar, [facility] [address] [id number] [address] [place] [phone] Mar, [facility] [address] [id number] [address] [place] [phone] Dec, [facility] [address] [id number] [address] [place] [phone] Dec, [facility] [address] [id number] [address] [place] [phone] Nov, [facility] [address] [id number] [address] [place] [phone] Nov, [facility] [address] [id number] [address] [place] [phone] Aug, [facility] [address] [id number] [address] [place] [phone] Aug, [facility] [address] [id number] [address] [place] [phone] May, [facility] [address] [id number] [address] [place] [phone] May, [facility] [address] [id number] [address] [place] [phone] Feb, [facility] [address] [id number] [address] [place] [phone] Nov, [facility] [address] [id number] [address] [place] [phone] Aug, [facility] [address] [id number] [address] [place] [phone] Apr, [facility] [address] [id number] [address] [place] [phone] Apr, [facility] [address] [id number] [address] [place] [phone] Apr, IMMUNIZATIONS No Known Immunizations SOCIAL HISTORY Never Assessed REASON FOR VISIT PLAN OF CARE VITAL SIGNS MEDICATIONS Unknown Medications RESULTS No Results PROCEDURES Procedure Date Ordered Result Body Site THER/PROPH/DIAG INJ, SC/IM Jun 21, 2014 Medroxyprogesterone inj Jun 21, 2014 URINE TEST Jun 21, 2014 INSTRUCTIONS MEDICATIONS ADMINISTERED No Known Medications MEDICAL (GENERAL) HISTORY Type Description Date Medical History Gonorrhea Positive-Chlamydia -Tyrone ated Medical History Chlamydia infection Medical History Chlamydia infection Surgical History T&A
--- OUTSIDE RECORDS SUMMARY | 2020-01-28 12:16 | XMS REPORT ---
Author Author Farzana Casillas Organization [facility] Address [address] [place] [address] Care Team Providers Care Director Of Medical Staff Services Name Role Phone MATT Casillas Unavailable PROBLEMS Type Condition ICD9-CM Code EVS22-QZ Code Onset Dates Condition S tatus SNOMED Code Problem Costochondritis M94.0 Active 6410 9004 Problem Hematochezia K92.1 Active 7312216 08 Problem Gastritis, presence of bleed ing unspecified, unspecified chronicity, unspecified gastritis type K29.70 Active 4 014434 Problem Subacute vaginitis N76.1 Active 1 8254579595465524 Problem Sore throat J02.9 Active 58590546 3 Problem Amenorrhea due to Depo Provera N91.2 Active 52446467 Problem Routine gynecological examination Z01.419 Active 045149936 Problem Postprandial abdominal pain in left upper quadrant R10.12 Active 288904919 Problem History of UTI Z87.440 Active 00272 81042883 Problem Hematemesis K92.0 Active 7855110 Problem Abdominal pain, unspecified location R10.9 Active 81703068 ALLERGIES No Information ENCOUNTERS Encounter Location Date Diagnosis [facility] [id number] [place] [address] May, [facility] [id number] [place] [address] May, Sexually transmitted disease exposure Z2 0.2 [facility] [address] [facility] [id number] [address] [address] 09 Jul, 2017 Cough in adult R05 and Acute nasopharyngitis J00 [facility] [address] [id number] [place] [address] May, Routine screening for STI (sexually verduzco smitted infection) Z11.3 ; Amenorrhea due to Depo Provera N91.2 and Encounter for counseling regarding contraception Z30.09 [facility] [id number] [place] [address] Feb, [facility] [address] [address] Feb, [facility] [address] [place] [id number] [place] [phone] Jan, Routine screening for STI (sexually verduzco smitted infection) Z11.3 [place] [address] [address] Nov, Encounter for Depo-Provera contraception Z30.42 [place] [address] [address] Aug, Routine screening for STI (sexually verduzco smitted infection) Z11.3 [place] [address] [address] Aug, Routine screening for STI (sexually verduzco smitted infection) Z11.3 [place] [address] [address] Aug, [place] [address] [address] Aug, Routine screening for STI (sexually verduzco smitted infection) Z11.3 ; Encounter for Depo-Provera contraception Z30.42 ; Depot contraception Z30.40 and Encounter for counseling regarding contraception Z30.09 [facility] [address] [facility] [id number] [address] [place] [address] Jul, Pharyngitis due to other org anism J02.8 [facility] [address] [address] May, Encounter for Depo-Provera contraception Z30.42 [facility] [address] [address] May, [place] [address] [address] 14 Apr, 2016 Subacute vaginitis N76.1 [place] [address] [address] Mar, [place] [address] [address] Mar, Hematochezia K92.1 [place] [address] [address] Mar, [place] [address] [address] Mar, Abdominal pain, unspecified location R10 .9 ; Hematochezia K92.1 ; Hematemesis K92.0 and History of UTI Z87.440 [place] [address] [address] Feb, Hematochezia K92.1 ; Encounter for Depo- Provera contraception Z30.42 ; Postprandial abdominal pain in left upper quadrant R10.12 ; Postprandial abdominal pain in right upper quadrant R10.11 and Gastritis, presence of bleeding unspecified, unspecified chronicity, unspecified gastritis type K29.70 [place] [address] [address] Jan, Costochondritis M94.0 and Sore throat J0 2.9 [place] [address] [address] Dec, Rectal bleeding K62.5 [place] [address] [address] Dec, [place] [address] [address] Nov, [place] [address] [address] Nov, Routine gynecological examination Z01.41 9 ; Encounter for surveillance of injectable contraceptive Z30.42 and Encounter for Depo-Provera contraception Z30.42 [place] [address] [place] [address] 09 Aug, 2015 Encounter for Depo-Provera contraception Z30.42 [facility] [address] [address] May, Encounter for Depo-Provera contraception Z30.42 [facility] [id number] [place] [address] 08 Feb, 2015 Unspecified contraceptive management V25 .9 [facility] [address] [address] Dec, TDAP DX V06.1 [facility] [address] [address] Nov, Encounter for contraceptive management V 25.9 [facility] [address] [address] Sep, [facility] [address] [address] Sep, [facility] [address] [address] Aug, [facility] [address] [address] Aug, [facility] [address] [address] Jul, [facility] [id number] [place] [address] Jul, [facility] [id number] [place] [address] Jun, [facility] [address] [address] Jun, [facility] [address] [address] Mar, [facility] [address] [address] Mar, [facility] [address] [place] [address] Dec, [facility] [address] [id number] [place] [address] Dec, [facility] [address] [id number] [place] [address] Nov, [facility] [address] [id number] [place] [address] Nov, [facility] [id number] [place] [address] Aug, [facility] [id number] [place] [address] Aug, [facility] [id number] [place] [address] May, [facility] [id number] [place] [address] May, [facility] [id number] [place] [address] Feb, [facility] [id number] [place] [address] Nov, [facility] [id number] [place] [address] Aug, [facility] [address] [id number] [place] [address] Apr, [facility] [id number] [place] [address] Apr, [facility] [address] [id number] [place] [address] Apr, IMMUNIZATIONS No Known Immunizations SOCIAL HISTORY Never Assessed REASON FOR VISIT PLAN OF CARE VITAL SIGNS MEDICATIONS Unknown Medications RESULTS No Results PROCEDURES No Known procedures INSTRUCTIONS MEDICATIONS ADMINISTERED No Known Medications MEDICAL (GENERAL) HISTORY Type Description Date Medical History Gonorrhea Positive-Chlamydia -Tyrone ated Medical History Chlamydia infection Medical History Chlamydia infection Surgical History T&A
--- OUTSIDE RECORDS SUMMARY | 2020-01-28 12:17 | XMS REPORT | Continuity of Care Document ---
Demographics Preferred Language Unknown Marital Status Unknown [employer] Affiliation Unknown Race Unknown Ethnic Group Unknown Author Organization Unknown Address Unknown Phone Unavailable Allergies Active Description Code Type Severity Reaction Onset Reported/Identified Relationship to Patient Clinical Status Yes No Known Drug Allergies [id number] Drug Allergy Unknown N/A 11/16/2017 Medications There is no data. Problems Date Dx Coded Attending Type Code Diagnosis Diagnosed By 05/01/2010 844.9 SPRA IN OF UNSPECIFIED SITE OF KNEE AND LEG 05/01/2010 E849.4 ACC IDENTS OCCURRING IN PLACE FOR RECREATION AND SPORT 05/01/2010 E886.0 ACC IDENTAL FALL ON SAME LEVEL FROM COLLISION PUSHING OR SHOVING BY OR WITH OTHER PERSON IN SPORTS 05/01/2010 844.9 SPRA IN OF UNSPECIFIED SITE OF KNEE AND LEG 05/01/2010 E849.4 ACC IDENTS OCCURRING IN PLACE FOR RECREATION AND SPORT 05/01/2010 E886.0 ACC IDENTAL FALL ON SAME LEVEL FROM COLLISION PUSHING OR SHOVING BY OR WITH OTHER PERSON IN SPORTS 05/01/2010 844.9 SPRA IN OF UNSPECIFIED SITE OF KNEE AND LEG 05/01/2010 E849.4 ACC IDENTS OCCURRING IN PLACE FOR RECREATION AND SPORT 05/01/2010 E886.0 ACC IDENTAL FALL ON SAME LEVEL FROM COLLISION PUSHING OR SHOVING BY OR WITH OTHER PERSON IN SPORTS 05/01/2010 SUZAN LYLES DO 844.9 SPRAIN OF UNSPECIFIED SITE OF KNEE AND LEG 05/01/2010 SUZAN LYLES DO K E849.[address] FOR [...] WITH OTHER PERSON IN SPORTS 05/01/2010 TONO JEWELRY POLISHER, MATT A 84 4.9 SPRAIN OF UNSPECIFIED SITE OF KNEE AND LEG 05/01/2010 TONO JEWELRY POLISHER, MATT A E849.[address] FOR RECREATION AND SPORT 05/01/2010 TONO JEWELRY POLISHER, MATT A E886.0 ACCIDENTAL FALL ON SAME LEVEL FROM COLLI DENISHA PUSHING OR SHOVING BY OR WITH OTHER [...] WITH OTHER PERSON IN SPORTS 05/01/2010 TAWNYA CHIRINOSN, YOVANA A 844.9 SPRAIN OF UNSPECIFIED SITE OF KNEE AND LEG 05/01/2010 TAWNYA JEWELRY POLISHER, YOVANA A E849.[address] FOR RECREATION AND SPORT 05/01/2010 TAWNYA LINDO, YOVANA A E886.0 ACCIDENTAL FALL ON SAME LEVEL FROM COLLI DENISHA PUSHING OR SHOVING BY OR WITH OTHER PERSON IN SPORTS 07/14/2010 078.10 VIR AL WARTS UNSPECIFIED 07/14/2010 346.90 DIAMOND JORDIN UNSPECIFIED WITHOUT INTRACTABLE MIGRAINE 07/14/2010 078.10 VIR AL WARTS UNSPECIFIED 07/14/2010 346.90 DIAMOND JORDIN UNSPECIFIED WITHOUT INTRACTABLE MIGRAINE 07/14/2010 078.10 VIR AL WARTS UNSPECIFIED 07/14/2010 346.90 DIAMOND JORDIN UNSPECIFIED WITHOUT INTRACTABLE MIGRAINE 07/14/2010 LYLES DO SUZAN K 078.10 VIRAL WARTS UNSPECIFIED 07/14/2010 LYLES DO, SUZAN K 346.90 MIGRAINE UNSPECIFIED WITHOUT INTRACTABLE MIGRAINE 07/14/2010 LYLES DO SUZAN K 078.10 VIRAL WARTS UNSPECIFIED 07/14/2010 LYLES DO, SUZAN K 346.90 MIGRAINE UNSPECIFIED WITHOUT INTRACTABLE MIGRAINE 07/14/2010 TONO JEWELRY POLISHER, MATT A 078.10 VIRAL WARTS UNSPECIFIED 07/14/2010 TONO JEWELRY POLISHER, MATT A 346.90 MIGRAINE UNSPECIFIED WITHOUT INTRACTABLE [...] MIGRAINE UNSPECIFIED WITHOUT INTRACTABLE MIGRAINE 07/14/2010 RAJOTTE JEWELRY POLISHER, YOVANA A 078.10 VIRAL WARTS UNSPECIFIED 07/14/2010 RAJOTTE JEWELRY POLISHER, YOVANA A 346.90 MIGRAINE UNSPECIFIED WITHOUT INTRACTABLE MIGRAINE 09/15/2012 V25.9 CONT RACEPTION MANAGEMENT 09/15/2012 V25.9 CONT RACEPTION MANAGEMENT 09/15/2012 V25.9 CONT RACEPTION MANAGEMENT 09/15/2012 RAFAL LOCKE SUZAN K V25.9 CONTRACEPTION MANAGEMENT 09/15/2012 RAFAL LOCKE SUZAN K V25.9 CONTRACEPTION MANAGEMENT 09/15/2012 TONOBRENDA LINDO MATT A V2 5.9 CONTRACEPTION MANAGEMENT 09/15/2012 LYLES DO, SUZAN K V25.9 CONTRACEPTION MANAGEMENT 09/15/2012 LYLES DO, SUZAN K V25.9 CONTRACEPTION MANAGEMENT 09/15/2012 LYLES DO, SUZAN K V25.9 CONTRACEPTION MANAGEMENT 09/15/2012 LYLES DO, SUZAN K V25.9 CONTRACEPTION MANAGEMENT 09/15/2012 CLEMENTINA BOWLING APRNYL A V25.9 CONTRACEPTION MANAGEMENT 12/07/2012 V25.02 CON TRACEPTION - ANY METHOD 12/07/2012 V25.02 CON TRACEPTION - ANY METHOD 12/07/2012 LYLES DOCHUA K V25.02 CONTRACEPTION - ANY METHOD 12/07/2012 LYLES DO, SUZAN K V25.02 CONTRACEPTION - ANY METHOD 12/07/2012 TONO LINDO, MATT A V25.02 CONTRACEPTION - ANY METHOD 12/07/2012 LYLES DOCHUA K V25.02 CONTRACEPTION - ANY METHOD 12/07/2012 LYLES DO SUZAN K V25.02 CONTRACEPTION - ANY METHOD 12/07/2012 LYLES DO, SUZAN K V25.02 CONTRACEPTION - ANY METHOD 12/07/2012 LYLES DO, SUZAN K V25.02 CONTRACEPTION - ANY METHOD 12/07/2012 CLEMENTINA BOWLING APRNYL A V25.02 CONTRACEPTION - ANY METHOD 12/12/2013 TONO LINDO MATT A V7 4.5 STD SCREEN 12/12/2013 LYLES DOCHUA K V74.5 STD SCREEN 12/12/2013 LYLES DO SUZAN K V74.5 STD SCREEN 12/12/2013 LYLES DO, SUZAN K V74.5 STD SCREEN 12/12/2013 LYLES DO, SUZAN K V74.5 STD SCREEN 12/12/2013 CLEMENTINA BOWLING APRNYL A V74.5 STD SCREEN 07/29/2014 SUZAN LYLES DO 461.9 SINUSITIS ACUTE 07/29/2014 CHU LYLES DOA K 461.9 SINUSITIS ACUTE 07/29/2014 YOVANA BOWLING APRN A 461.9 SINUSITIS ACUTE 09/18/2014 YOVANA BOWLING APRN V06.8 PROQUAD (MMR/VARICELLA) DX 11/16/2017 KIRIT FERGUSON, NII Nolen Ot Z02.89 ENCOUNTER FOR OTHER ADMINISTRATIVE EXAMI [...] ABSENCE OF OTHER ORGANS 12/12/2017 NATACHA GUAJARDO JEWELRY POLISHER Ot A54 .9 GONOCOCCAL INFECTION, UNSPECIFIED 12/12/2017 NATACHA GUAJARDO JEWELRY POLISHER Ot F12.10 CANNABIS ABUSE, UNCOMPLICATED 12/12/2017 NATACHA GUAJARDO JEWELRY POLISHER Ot F17.210 NICOTINE DEPENDENCE, CIGARETTES, UNCOMPL 12/12/2017 NATACHA GUAJARDO JEWELRY POLISHER Ot R10.32 LEFT LOWER QUADRANT PAIN 12/12/2017 NATACHA GUAJARDO JEWELRY POLISHER Ot Z86.19 PERSONAL HISTORY OF OTHER INFECTIOUS AND 12/12/2017 NATACHA GUAJARDO JEWELRY POLISHER Ot Z90.89 ACQUIRED ABSENCE OF OTHER ORGANS [...] OTHER ORGANS 12/14/2017 NATACHA GUAJARDO APRN Ot A54 .9 GONOCOCCAL INFECTION, UNSPECIFIED 12/14/2017 NATACHA GUAJARDO APRN Ot F12.10 CANNABIS ABUSE, UNCOMPLICATED 12/14/2017 NATACHA GUAJARDO APRN Ot F17.210 NICOTINE DEPENDENCE, CIGARETTES, UNCOMPL 12/14/2017 NATACHA GUAJARDO APRN Ot R10.32 LEFT LOWER QUADRANT PAIN 12/14/2017 NATACHA GUAJARDO APRN Ot Z86.19 PERSONAL HISTORY OF OTHER INFECTIOUS AND 12/14/2017 NATACHA GUAJARDO APRN Ot Z90.89 ACQUIRED ABSENCE OF OTHER ORGANS 12/18/2017 NATACHA GUAJARDO APRN Ot A54 .9 GONOCOCCAL INFECTION, UNSPECIFIED 12/18/2017 NATACHA GUAJARDO JEWELRY POLISHER Ot F12.10 CANNABIS ABUSE, UNCOMPLICATED 12/18/2017 NATACHA GUAJARDO APRN Ot F17.210 NICOTINE DEPENDENCE, CIGARETTES, UNCOMPL 12/18/2017 NATACHA GUAJARDO JEWELRY POLISHER Ot R10.32 LEFT LOWER QUADRANT PAIN 12/18/2017 NATACHA GUAJARDO JEWELRY POLISHER Ot Z86.19 PERSONAL HISTORY OF OTHER INFECTIOUS AND 12/18/2017 NATACHA GUAJARDO JEWELRY POLISHER Ot Z90.89 ACQUIRED ABSENCE OF OTHER ORGANS [...] ABSENCE OF OTHER ORGANS 02/06/2018 Ot N39.0 URIN JOO TRACT INFECTION, SITE NOT SPECIF 02/06/2018 Ot R10.30 LOW ER ABDOMINAL PAIN, UNSPECIFIED 02/06/2018 Ot Z20.2 CONT ACT W AND EXPOSURE TO INFECT W A SEX 02/06/2018 Ot Z86.19 PER MARSHA HISTORY OF OTHER INFECTIOUS AND 02/06/2018 Ot Z90.89 ACQ UIRED ABSENCE OF OTHER ORGANS 05/16/2018 NIGEL ENGLAND DOA Piero Ot F12.10 CANNABIS ABUSE, UNCOMPLICATED 05/16/2018 NIGEL ENGLAND DOA Piero Ot F17.290 NICOTINE DEPENDENCE, OTHER TOBACCO PRODU 05/16/2018 NIGEL ENGLAND DOA K Ot N92.6 IRREGULAR MENSTRUATION, UNSPECIFIED 05/16/2018 SAMANTA NIGEL LOCKEA K Ot N94.6 DYSMENORRHEA, UNSPECIFIED 05/16/2018 INGEL ENGLAND DOA K Ot O20.9 HEMORRHAGE IN EARLY , UNSPECIFI 05/16/2018 ANDREWS ENGLAND DO K Ot O99.321 DRUG USE COMPLICATING , FIRST T 05/16/2018 NIGEL ENGLAND DOA K Ot O99.331 SMOKING (TOBACCO) COMPLICATING 05/16/2018 NIGEL ENGLAND DOA K Ot O99.89 OTH DISEASES AND CONDITIONS COMPL PREG/C 05/16/2018 SAMANTA ANDREWS LOCKE Ot Z3A.01 LESS THAN 8 WEEKS GESTATION OF 05/16/2018 SAMANTA ANDREWS Harry Ot Z86.19 PERSONAL HISTORY OF OTHER INFECTIOUS AND 05/16/2018 SAMANTA ANDREWS K Ot Z90.89 ACQUIRED ABSENCE OF OTHER ORGANS 05/17/2018 SAMANTA ANDREWS K Ot F12.10 CANNABIS ABUSE, UNCOMPLICATED 05/17/2018 LIBERTY ANDREWS K Ot F17.290 NICOTINE DEPENDENCE, OTHER TOBACCO PRODU 05/17/2018 SAMANTA ANDREWS K Ot N92.6 IRREGULAR MENSTRUATION, UNSPECIFIED 05/17/2018 SAMANTA ANDREWS K Ot N94.6 DYSMENORRHEA, UNSPECIFIED 05/17/2018 LIBERTY ANDREWS K Ot O20.9 HEMORRHAGE IN EARLY , UNSPECIFI 05/17/2018 SAMANTA ANDREWS K Ot O99.321 DRUG USE COMPLICATING , FIRST T 05/17/2018 SAMANTA ANDREWS K Ot O99.331 SMOKING (TOBACCO) COMPLICATING 05/17/2018 SAMANTA ANDREWS K Ot O99.89 OTH DISEASES AND CONDITIONS COMPL PREG/C 05/17/2018 SAMANTA ANDREWS Harry Ot Z3A.01 LESS THAN 8 WEEKS GESTATION OF 05/17/2018 SAMANTA ANDREWS Harry Ot Z86.19 PERSONAL HISTORY OF OTHER INFECTIOUS AND 05/17/2018 SAMANTA ANDREWS K Ot Z90.89 ACQUIRED ABSENCE OF OTHER ORGANS 08/16/2018 TERRA FERGSUON, DAVID Sandoval Ot F12.10 CANNABIS ABUSE, UNCOMPLICATED 08/16/2018 TERRA FERGUSON, DAVID Sandoval Ot R11.2 NAUSEA WITH VOMITING, UNSPECIFIED 08/16/2018 DAVID ELLISON MD Ot R19.7 DIARRHEA, UNSPECIFIED 08/16/2018 DAVID ELLISON MD, Ot Z77.22 CNTCT W AND EXPSR TO ENVIRON TOBACCO SMO 08/16/2018 DAVID ELLISON MD Ot Z86.19 PERSONAL HISTORY OF OTHER INFECTIOUS AND 08/16/2018 DAVID ELLISON MD Ot Z90.89 ACQUIRED ABSENCE OF OTHER ORGANS 08/18/2018 TERRA FERGUSON, DAVID Sandoval Ot F12.10 CANNABIS ABUSE, UNCOMPLICATED 08/18/2018 TERRA FERGUSON, DAVID Sandoval Ot R11.2 NAUSEA WITH VOMITING, UNSPECIFIED 08/18/2018 TERRA FERGUSON, DAVID Sandoval Ot R19.7 DIARRHEA, UNSPECIFIED 08/18/2018 TERRA FERGUSON, DAVID Sandoval Ot Z77.22 CNTCT W AND EXPSR TO ENVIRON TOBACCO SMO 08/18/2018 TERRA FERGUSON, DAVID Sandoval Ot Z86.19 PERSONAL HISTORY OF OTHER INFECTIOUS AND 08/18/2018 TERRA FERGUSON, DAVID Sandoval Ot Z90.89 ACQUIRED ABSENCE OF OTHER ORGANS Procedures Code Description [place] [address] URIN E TEST (IN- HOUSE) 09/15/2012 81506 THER APUTIC INJ SQ/IM 09/15/2012 J1050 DEPO PROVERA 09/15/2012 J1050 DEPO PROVERA 12/07/2012 26977 THER APUTIC INJ SQ/IM 12/07/2012 11422 URIN E TEST (IN- HOUSE) 12/07/2012 42095 URIN E TEST (IN- HOUSE) 02/28/2013 62844 THER APUTIC INJ SQ/IM 02/28/2013 J1050 DEPO PROVERA 02/28/2013 17286 THER APUTIC INJ SQ/IM 05/23/2013 J1050 DEPO PROVERA 05/23/2013 48490 URIN E TEST (IN- HOUSE) 05/23/2013 J1050 DEPO PROVERA 09/03/2013 06330 THER APUTIC INJ SQ/IM 09/03/2013 28585 URIN E TEST (IN- HOUSE) 09/03/2013 53970 THER APUTIC INJ SQ/IM 12/12/2013 J1050 DEPO PROVERA 12/12/2013 56050 GC/C HLAM URINE (STATE) 12/12/2013 68331 PREG THOM TEST, URINE (IN- HOUSE) 12/12/2013 95384 URIN E TEST (IN- HOUSE) 03/26/2014 40120 THER APUTIC INJ SQ/IM 03/26/2014 J1050 DEPO PROVERA 03/26/2014 90166 PREG THOM TEST, URINE (IN- HOUSE) 06/21/2014 J1050 DEPO PROVERA 06/21/2014 15131 THER APUTIC INJ SQ/IM 06/21/2014 J1050 DEPO PROVERA 09/07/2014 47540 PREG THOM TEST, URINE (IN- HOUSE) 09/07/2014 13547 THER APUTIC INJ SQ/IM 09/07/2014 Results Test Result Range CBC With Differential/Platelet - 6 16:08 WBC 6.5 x10E3/uL 3.4-10.8 RBC 4.65 x10E6/uL 3.77-5.28 Hemoglobin 13.3 g/dL 11.1-15.9 Hematocrit 39.1 % 34.0-46.6 MCV 84 fL 79-97 MCH 28.6 pg 26.6-33.0 MCHC 34.0 g/dL 31.5-35.7 RDW 15.0 % 12.3-15.4 Platelets 245 x10E3/uL 150-379 Neutrophils 50 % Lymphs 41 % Monocytes 6 % Eos 3 % Basos 0 % Neutrophils (Absolute) 3.2 x10E3/uL 1.4- 7.0 Lymphs (Absolute) 2.7 x10E3/uL 0.7-3.1 Monocytes(Absolute) 0.4 x10E3/uL 0.1-0.9 Eos (Absolute) 0.2 x10E3/uL 0.0-0.4 Baso (Absolute) 0.0 x10E3/uL 0.0-0.3 Immature Granulocytes 0 % Immature Grans (Abs) 0.0 x10E3/uL 0.0-0. 1 Comp. Metabolic Panel (14) - 03/23/16 16 :08 Glucose, Serum 83 mg/dL 65-99 BUN 12 [...] C difficile Toxin Gene AMANDEEP - 04/01/16 08 :31 C difficile Toxin Gene AMANDEEP Negative Neg ative Ova + Parasite Exam - 04/01/16 08:31 Ova + Parasite Exam Note Genital Culture, Routine - 05/03/16 16:0 6 Genital Culture, Routine Note HSV 1 and 2-Specific Ab, IgG - 08/24/16 15:42 HSV 1 IgG, Type Spec 7.66 index 0.00-0.9 0 HSV 2 IgG, Type Spec <0.91 index 0.00-0. 90 HSV 1 and 2 IgM Abs, Indirect - 08/24/16 15:42 HSV 1 IgM Antibodies <1:10 titer <1:10 HSV 2 IgM Antibodies 1:100 titer <1:10 Genital Culture, Routine - 08/24/16 15:4 2 Genital Culture, Routine Note HSV 1/2 ANTIBODY IgG - 02/15/17 11:27 HSV 1 IgG, Type Spec 9.05 index 0.00-0.9 0 HSV 2 IgG, Type Spec <0.91 index 0.00-0. 90 CULTURE, GENITAL - 02/15/17 11:27 Genital Culture, Routine Final report N RG Result 1 NRG Genital Culture, Routine - 02/15/17 11:2 7 Genital Culture, Routine Note HSV 1 and 2-Specific Ab, IgG - 02/15/17 11:27 HSV 1 IgG, Type Spec 9.05 index 0.00-0.9 0 HSV 2 IgG, Type Spec <0.91 index 0.00-0. 90 HSV 1 and 2 IgM Abs, Indirect - 02/15/17 11:27 HSV 1 IgM Antibodies <1:10 titer <1:10 HSV 2 IgM Antibodies <1:10 titer <1:10 TEST AUTHORIZATION 2 - 05/24/17 10:53 COMMENT NRG TEST NAME: HSV 1/2 IGG, W/REFL NRG TEST CODE: [id number] NRG CLIENT CONTACT: PRABHA VIVAS NRG REPORT ALWAYS MESSAGE SIGNATURE NRG CULTURE, GENITAL - 05/24/17 10:53 CULTURE, GENITAL SEE NOTE NRG Complete urinalysis with reflex to cultu re - 11/16/17 01:35 Urine color determination YELLOW NRG Urine clarity determination SLIGHTLY CLOUDY NRG Urine pH measurement by test strip 7 5-9 Specific gravity of urine by test strip 1.015 1.016-1.022 Urine protein assay by test strip, semi-quantitative NEGATIVE NEGATIVE Urine glucose detection by automated test strip NE GATIVE NEGATIVE Erythrocytes detection in urine sediment by light micr oscopy 1+ NEGATIVE Urine ketones detection by automated test strip NE GATIVE NEGATIVE Urine nitrite detection by test strip NEGATIVE NEGATIVE Urine total bilirubin detection by test strip NEGA TIVE NEGATIVE Urine urobilinogen measurement by automated test strip (mass/volume) 1 mg/dL NORMAL Urine leukocyte esterase detection by dipstick 1+ NEGATIVE Automated urine sediment erythrocyte cou nt by microscopy (number/high power field) [HPF] NRG Automated urine sediment leukocyte count by microscopy (number/high power field) [HPF] NRG Bacteria detection in urine sediment by light microsco py TRACE NRG Squamous epithelial cells detection in u rine sediment by light microscopy 10-25 NRG Crystals detection in urine sediment by light microsco py PRESENT NRG Casts detection in urine sediment by light microscopy NONE NRG Mucus detection in urine sediment by light microscopy NEGATIVE NRG Complete urinalysis with reflex to culture NO NRG Amorphous sediment detection in urine sediment by ligh t microscopy MOD NIALL PHOSPHATE NRG Urine drug screening test - 11/16/17 01: 35 Urine phencyclidine detection by screening method NEGATIVE NEGATIVE Urine benzodiazepines detection by screening method NEGATIVE NEGATIVE Urine cocaine detection NEGATIVE NEGATI VE Urine amphetamines detection by screening method N EGATIVE NEGATIVE Urine methamphetamine detection by screening method NEGATIVE NEGATIVE Urine cannabinoids detection by screening method P OSITIVE NEGATIVE Urine opiates detection by screening method NEGATI VE NEGATIVE Urine barbiturates detection NEGATIVE N EGATIVE Screening urine tricyclic antidepressants detection NEGATIVE NEGATIVE Urine methadone detection by screening method NEGA TIVE NEGATIVE Urine oxycodone detection NEGATIVE NEGA TIVE Urine propoxyphene detection NEGATIVE N EGATIVE Complete urinalysis with reflex to cultu re - 12/07/17 01:40 Urine color determination KARLA NRG Urine clarity determination SLIGHTLY CLOUDY NRG Urine pH measurement by test strip 5 5-9 Specific gravity of urine by test strip 1.025 1.016-1.022 Urine protein assay by test strip, semi-quantitative 1+ NEGATIVE Urine glucose detection by automated test strip NE GATIVE NEGATIVE Erythrocytes detection in urine sediment by light micr oscopy 2+ NEGATIVE Urine ketones detection by automated test strip 1+ NEGATIVE Urine nitrite detection by test strip POSITIVE NEGATIVE Urine total bilirubin detection by test strip NEGA TIVE NEGATIVE Urine urobilinogen measurement by automated test strip (mass/volume) 1 mg/dL NORMAL Urine leukocyte esterase detection by dipstick 1+ NEGATIVE Automated urine sediment erythrocyte cou nt by microscopy (number/high power field) [HPF] NRG Automated urine sediment leukocyte count by microscopy (number/high power field) [HPF] NRG Bacteria detection in urine sediment by light microsco py MODERATE NRG Squamous epithelial cells detection in u rine sediment by light microscopy 2-5 NRG Crystals detection in urine sediment by light microsco py NONE NRG Casts detection in urine sediment by light microscopy NONE NRG Mucus detection in urine sediment by light microscopy MODERATE NRG Complete urinalysis with reflex to culture YES NRG Bacterial urine culture - 12/07/17 01:40 Bacterial urine culture RM NRG COLONY COUNT . NRG FTX;REPORTABLE RML SENT SENSITIVITY REPORT 12/09 09 :06 NRG Chlamydia DNA amp probe, urine - 8 01:40 Chlamydia DNA amp probe, urine Not Detected Not Detected Urine Neisseria gonorrhoeae DNA assay - 12/07/17 01:40 Gonorrhea amp DNA-urine Detected Not De tected RML Sensitivity Panel - 12/07/17 01:40 Gentamicin susceptibility test by minimum inhibitory c oncentration <= NRG Trimethoprim/sulfamethoxazole susceptibi lity test by minimum inhibitoryconcentration <= NRG Levofloxacin susceptibility test by minimum inhibitory concentration <= NRG Ampicillin susceptibility test by minimum inhibitory c oncentration <= NRG Cefazolin susceptibility test by minimum inhibitory co ncentration <= NRG Ceftriaxone susceptibility test by minimum inhibitory concentration <= NRG Ciprofloxacin susceptibility test by minimum inhibitor y concentration <= NRG Meropenem susceptibility test by minimum inhibitory co ncentration <= NRG Nitrofurantoin susceptibility test by mi nimum inhibitory concentration <= NRG Amoxicillin and clavulanate potassium susc NOEL <= NRG Complete blood count (CBC) with automate d white blood cell (WBC) differential - 12/12/17 13:45 Blood leukocytes automated count (number/volume) 8.9 10*3/uL 4.3-11.0 Blood erythrocytes automated count (number/volume) 5.11 10*6/uL 4.35-5.85 Venous blood hemoglobin measurement (mass/volume) 15.4 g/dL 11.5-16.0 Blood hematocrit (volume fraction) 44 % 35-52 Automated erythrocyte mean corpuscular volume 85 [ foz_us] 80-99 Automated erythrocyte mean corpuscular h emoglobin (mass per erythrocyte) 30 pg 25-34 Automated erythrocyte mean corpuscular h emoglobin concentration measurement (mass/volume) 35 g/dL 32-36 Automated erythrocyte distribution width ratio 13. 9 % 10.0- 14.5 Automated blood platelet count (count/volume) 225 10*3/uL [...] 10*3 1.0-4.0 Blood monocytes automated count (number/volume) 0. 6 10*3 0.0-1.0 Automated eosinophil count 0.1 10*3/uL 0 .0-0.3 Automated blood basophil count (count/volume) 0.0 10*3/uL 0.0-0.1 Complete urinalysis with reflex to cultu re - 12/30/17 18:56 Urine color determination YELLOW NRG Urine clarity determination SLIGHTLY CLOUDY NRG Urine pH measurement by test strip 7 5-9 Specific gravity of urine by test strip 1.010 1.016-1.022 Urine protein assay by test strip, semi-quantitative NEGATIVE NEGATIVE Urine glucose detection by automated test strip NE GATIVE NEGATIVE Erythrocytes detection in urine sediment by light micr oscopy 1+ NEGATIVE Urine ketones detection by automated test strip NE GATIVE NEGATIVE Urine nitrite detection by test strip POSITIVE NEGATIVE Urine total bilirubin detection by test strip NEGA TIVE NEGATIVE Urine urobilinogen measurement by automated test strip (mass/volume) NORMAL NORMAL Urine leukocyte esterase detection by dipstick 1+ NEGATIVE Automated urine sediment erythrocyte cou nt by microscopy (number/high power field) NONE NRG Automated urine sediment leukocyte count by microscopy (number/high power field) [HPF] NRG Bacteria detection in urine sediment by light microsco py LARGE NRG Squamous epithelial cells detection in u rine sediment by light microscopy 2-5 NRG Crystals detection in urine sediment by light microsco py NONE NRG Casts detection in urine sediment by light microscopy NONE NRG Mucus detection in urine sediment by light microscopy NEGATIVE NRG Complete urinalysis with reflex to culture NO NRG Neisseria gonorrhoeae DNA detection by p robe and signal amplification method - 12/30/17 18:56 Gonorrhea amp DNA-urine Not Detected No t Detected Chlamydia DNA amp probe, urine - 8 18:56 Chlamydia DNA amp probe, urine Not Detected Not Detected Complete blood count (CBC) with automate d white blood cell (WBC) differential - 12/30/17 19:10 Blood leukocytes automated count (number/volume) 7.7 10*3/uL 4.3-11.0 Blood erythrocytes automated count (number/volume) 4.75 10*6/uL 4.35-5.85 Venous blood hemoglobin measurement (mass/volume) 14.2 g/dL 11.5-16.0 Blood hematocrit (volume fraction) 40 % 35-52 Automated erythrocyte mean corpuscular volume 85 [ foz_us] 80-99 Automated erythrocyte mean corpuscular h emoglobin (mass per erythrocyte) 30 pg 25-34 Automated erythrocyte mean corpuscular h emoglobin concentration measurement (mass/volume) 35 g/dL 32-36 Automated erythrocyte distribution width ratio 13. 7 % 10.0- 14.5 Automated blood platelet count (count/volume) 230 10*3/uL [...] 10*3 1.0-4.0 Blood monocytes automated count (number/volume) 0. 5 10*3 0.0-1.0 Automated eosinophil count 0.1 10*3/uL 0 .0-0.3 Automated blood basophil count (count/volume) 0.0 10*3/uL 0.0-0.1 Erythrocyte sedimentation rate by jose maria gren method - 12/30/17 19:10 Erythrocyte sedimentation rate by westergren method 1 mm 0- 20 Comprehensive metabolic panel - 12/30/17 19:10 Serum or plasma sodium measurement (moles/volume) 139 mmol/L 135-145 Serum or plasma potassium measurement (moles/volume) 3.5 mmol/L 3.6-5.0 Serum or plasma chloride measurement (moles/volume) 108 mmol/L 98-107 Carbon dioxide 22 mmol/L 21-32 Serum or plasma anion gap determination (moles/volume) 9 mmol/L 5-14 Serum or plasma urea nitrogen measurement (mass/volume ) 13 mg/dL 7-18 Serum or plasma creatinine measurement (mass/volume) 0.75 mg/dL 0.60-1.30 Serum or plasma urea nitrogen/creatinine mass ratio 17 NRG Serum or plasma creatinine measurement w ith calculation of estimated glomerular filtration rate > NRG Serum or plasma glucose measurement (mass/volume) 100 mg/dL 70-105 Serum or plasma calcium measurement (mass/volume) 9.5 mg/dL 8.5-10.1 Serum or plasma total bilirubin measurement (mass/volu me) 0.5 mg/dL 0.1-1.0 Serum or plasma alkaline phosphatase rhea surement (enzymatic activity/volume) 66 U/L 40-136 Serum or plasma aspartate aminotransfera se measurement (enzymatic activity/volume) 17 U/L 5-34 Serum or plasma alanine aminotransferase measurement (enzymatic activity/volume) 22 U/L 0-55 Serum or plasma protein measurement (mass/volume) 6.8 g/dL 6.4-8.2 Serum or plasma albumin measurement (mass/volume) 4.3 g/dL 3.2-4.5 Serum or plasma choriogonadotropin (preg thom test) detection - 12/30/17 19:10 Serum or plasma choriogonadotropin ( test) de tection NEGATIVE NEGATIVE Serum or plasma C reactive protein measu rement (mass/volume) - 12/30/17 19:10 Serum or plasma C reactive protein measurement (mass/v olume) 0.01 mg/dL 0.00-0.50 Bacteria identification in genital speci men by aerobe culture - 12/30/17 19:59 FREE TEXT EXTERNAL PLUS NORMAL ELIZABETH NR G QUANTITY OF GROWTH Moderate Growth NRG Bacteria identification in genital specimen by aerobe culture [id number] NRG Microscopic examination by KEVON preparati on - 12/30/17 19:59 Microscopic examination by KEVON preparation TNP NRG Microscopic examination by wet preparati on - 12/30/17 19:59 WET PREP RESULTS NO CLUE CELLS OBSERVED NRG Complete blood count (CBC) with automate d white blood cell (WBC) differential - 05/15/18 23:59 Blood leukocytes automated count (number/volume) 9.4 10*3/uL 4.3-11.0 Blood erythrocytes automated count (number/volume) 5.29 10*6/uL 4.35-5.85 Venous blood hemoglobin measurement (mass/volume) 16.1 g/dL 11.5-16.0 Blood hematocrit (volume fraction) 47 % 35-52 Automated erythrocyte mean corpuscular volume 88 [ foz_us] 80-99 Automated erythrocyte mean corpuscular h emoglobin (mass per erythrocyte) 30 pg 25-34 Automated erythrocyte mean corpuscular h emoglobin concentration measurement (mass/volume) 35 g/dL 32-36 Automated erythrocyte distribution width ratio 13. 1 % 10.0- 14.5 Automated blood platelet count (count/volume) 235 10*3/uL [...] 10*3 1.0-4.0 Blood monocytes automated count (number/volume) 0. 8 10*3 0.0-1.0 Automated eosinophil count 0.3 10*3/uL 0 .0-0.3 Automated blood basophil count (count/volume) 0.0 10*3/uL 0.0-0.1 Whole blood basic metabolic panel - 04/21 12/05 23:59 Serum or plasma sodium measurement (moles/volume) 141 mmol/L 135-145 Serum or plasma potassium measurement (moles/volume) 3.4 mmol/L 3.6-5.0 Serum or plasma chloride measurement (moles/volume) 111 mmol/L 98-107 Carbon dioxide 17 mmol/L 21-32 Serum or plasma anion gap determination (moles/volume) 13 mmol/L 5-14 Serum or plasma urea nitrogen measurement (mass/volume ) 8 mg/dL 7-18 Serum or plasma creatinine measurement (mass/volume) 0.79 mg/dL 0.60-1.30 Serum or plasma urea nitrogen/creatinine mass ratio 10 NRG Serum or plasma creatinine measurement w ith calculation of estimated glomerular filtration rate > NRG Serum or plasma glucose measurement (mass/volume) 88 mg/dL 70-105 Serum or plasma calcium measurement (mass/volume) 9.8 mg/dL 8.5-10.1 ABO+Rh group - 05/15/18 23:59 ABO+Rh group OP NRG Transfusion band number [id number] NRG Serum or plasma choriogonadotropin measu rement (units/volume) - 05/15/18 23:59 Serum or plasma choriogonadotropin measurement (units/ volume) < m[iU]/mL <5 Complete urinalysis with reflex to cultu re - 05/16/18 00:40 Urine color determination YELLOW NRG Urine clarity determination CLEAR NR G Urine pH measurement by test strip 6 5-9 Specific gravity of urine by test strip 1.010 1.016-1.022 Urine protein assay by test strip, semi-quantitative NEGATIVE NEGATIVE Urine glucose detection by automated test strip NE GATIVE NEGATIVE Erythrocytes detection in urine sediment by light micr oscopy 1+ NEGATIVE Urine ketones detection by automated test strip NE GATIVE NEGATIVE Urine nitrite detection by test strip NEGATIVE NEGATIVE Urine total bilirubin detection by test strip NEGA TIVE NEGATIVE Urine urobilinogen measurement by automated test strip (mass/volume) NORMAL NORMAL Urine leukocyte esterase detection by dipstick 1+ NEGATIVE Automated urine sediment erythrocyte cou nt by microscopy (number/high power field) NONE NRG Automated urine sediment leukocyte count by microscopy (number/high power field) [HPF] NRG Bacteria detection in urine sediment by light microsco py FEW NRG Squamous epithelial cells detection in u rine sediment by light microscopy 5-10 NRG Crystals detection in urine sediment by light microsco py NONE NRG Casts detection in urine sediment by light microscopy NONE NRG Mucus detection in urine sediment by light microscopy NEGATIVE NRG Complete urinalysis with reflex to culture NO NRG Urine drug screening test - 05/16/18 00: 40 Urine phencyclidine detection by screening method NEGATIVE NEGATIVE Urine benzodiazepines detection by screening method NEGATIVE NEGATIVE Urine cocaine detection NEGATIVE NEGATI VE Urine amphetamines detection by screening method N EGATIVE NEGATIVE Urine methamphetamine detection by screening method NEGATIVE NEGATIVE Urine cannabinoids detection by screening method P OSITIVE NEGATIVE Urine opiates detection by screening method NEGATI VE NEGATIVE Urine barbiturates detection NEGATIVE N EGATIVE Screening urine tricyclic antidepressants detection NEGATIVE NEGATIVE Urine methadone detection by screening method NEGA TIVE NEGATIVE Urine oxycodone detection NEGATIVE NEGA TIVE Urine propoxyphene detection NEGATIVE N EGATIVE Encounters ACCT No. Visit Date/Time Discharge Status Pt. Type Provider Facility Loc./Unit Complaint [id number] 2016 15:10:00 Document Registration [id number] 05/06/2016 13:06:00 Document Registration [id number] 04/06/2016 07:05:00 Document Registration [id number] 03/24/2016 10:05:00 Document Registration [id number] 05/24/2018 13:20:00 05/24/2018 23:59: 59 [facility] Outpatient ARPITA CHOW LAC [facility] [id number] 05/24/2017 10:53:00 Document Registration [id number] 05/24/2017 10:00:00 Document Registration [id number] 02/15/2017 10:40:00 Document Registration [id number] 2016 14:12:00 Document Registration [id number] 08/16/2018 16:07:00 02/27/2 019 16:48:00 DIS Emergency TERRA FERGUSON, DAVID Sandoval [facility] ER NAUSEA,DIARRHEA [id number] 05/15/2018 22:52:00 018 02:01:00 DIS Emergency SAMANTA ANDREWS [facility] ER POSS 7 WKS PREG/VAG BLE EDING AND CRAMPING [id number] 12/30/2017 18:22:00 018 21:56:00 DIS Emergency DAVID ELLISON MD [facility] ER STOMACH PAIN [id number] 12/12/2017 13:20:00 018 14:22:00 DIS Outpatient NATACHA GUAJARDO APRN [facility] ER ABD PAIN [id number] 12/07/2017 01:19:00 018 02:28:00 DIS Outpatient SAMANTA ANDREWS [facility] ER ABD PAIN [id number] 11/16/2017 01:24:00 018 02:27:00 DIS Emergency SAMANTA DOANDREWS [facility] ER ABD PAIN, HASN'T HAD PE RIOD THIS MONTH [id number] 06/03/2017 21:28:00 017 23:59:59 CLS Outpatient NII BETH MD [facility] FNS [id number] 01/28/2020 11:29:[address] Emergency FRANCE BISHOP DO [facility] ER ANXIETY [id number] 02/02/2018 13:27:00 Document Registration [id number] 02/18/2017 15:07:00 Document Registration [id number] 02/17/2017 15:09:00 Document Registration [id number] 09/18/2014 12:56:00 09/18/2014 23:59: 59 CLS Outpatient YOVANA BOWLING APRN [id number] 09/07/2014 10:54:00 09/07/2014 23:59: 59 CLS Outpatient SUZAN LYLES DO [id number] 07/29/2014 17:17:00 07/29/2014 23:59: 59 CLS Outpatient CHU LYLES DOKolton Harry [id number] 06/21/2014 08:56:00 06/21/2014 23:59: 59 CLS Outpatient RAFAL LOCKESUZAN [id number] 03/26/2014 14:55:00 03/26/2014 23:59: 59 CLS Outpatient LYLES SUZAN [id number] 12/12/2013 08:34:00 12/12/2013 23:59: 59 CLS Outpatient TONO CHIRINOSRufus MATT A [id number] 09/03/2013 09:10:00 09/03/2013 23:59: 59 CLS Outpatient LYLES SUZAN [id number] 05/23/2013 08:29:00 05/23/2013 23:59: 59 CLS Outpatient RAFAL LOCKESUZAN [id number] 09/15/2012 16:14:00 09/15/2012 23:59: 59 CLS Outpatient [id number] 02/28/2013 07:54:00 Document Registration [id number] 12/07/2012 11:53:00 Document Registration [id number] 03/25/2016 18:06:00 Document Registration
[2020-01-28 12:23] LABS: CHLORIDE 111 MMOL/L (98-107); POTASSIUM 3.8 MMOL/L (3.6-5.0); SODIUM 137 MMOL/L (135-145)
[2020-01-28 12:24] LABS: CALCIUM 8.8 MG/DL (8.5-10.1)
[2020-01-28 12:25] LABS: GLUCOSE 93 MG/DL (70-105)
[2020-01-28 12:26] LABS: CARBON DIOXIDE 17 MMOL/L (21-32)
[2020-01-28 12:29] LABS: CREATININE SERUM 0.76 MG/DL (0.60-1.30); GFR ESTIMATED > 60
[2020-01-28 12:30] LABS: BUN/CREATININE RATIO 20
[2020-01-28 12:49] LABS: BILIRUBIN,URINE NEGATIVE (NEGATIVE); CLARITY,URINE CLEAR; COLOR,URINE YELLOW; GLUCOSE, URINE (UA) NEGATIVE (NEGATIVE); KETONES,URINE TRACE (NEGATIVE); LEUKOCYTE ESTERASE ,URINE NEGATIVE (NEGATIVE); NITRITE,URINE NEGATIVE (NEGATIVE); PH,URINE 7.5 (5-9); PROTEIN,URINE NEGATIVE (NEGATIVE)
[2020-01-28 12:56] LABS: HCG,QUALITATIVE URINE NEGATIVE (NEGATIVE)
[2020-01-28 12:57] LABS: BACTERIA,URINE FEW /HPF
[2020-01-28 13:02] LABS: AMPHETAMINE SCREEN, URINE NEGATIVE (NEGATIVE); BARBITURATE SCREEN URINE NEGATIVE (NEGATIVE); BENZODIAZEPINES SCREEN URINE NEGATIVE (NEGATIVE); CANNABINOID SCREEN, URINE POSITIVE (NEGATIVE); COCAINE SCREEN URINE NEGATIVE (NEGATIVE); METHADONE STAT NEGATIVE (NEGATIVE); METHAMPHETAMINE SCREEN URINE S NEGATIVE (NEGATIVE); OPIATE SCREEN URINE NEGATIVE (NEGATIVE); OXYCODONE STAT NEGATIVE (NEGATIVE); PROPOXYPHENE STAT NEGATIVE (NEGATIVE); TRICYCLIC ANTIDEPRESSANTS SCRE NEGATIVE (NEGATIVE)
--- NOTE | 2020-01-28 13:21 | Diagnostic Imaging Report ---
INDICATION: Chest pain EXAMINATION: Portable chest. FINDINGS: The lungs are well-aerated and clear. The heart is not enlarged. No pulmonary edema or hilar adenopathy. No pneumothorax or pleural effusion. No bony abnormalities. IMPRESSION: Negative portable chest. Dictated by: Dictated on workstation # [id number]
[2020-01-28] MEDS ORDERED: HYDR50TA76 PO (13:25)
[2020-01-28 13:31] VITALS: BP 101/70
== END 2020-01-28 13:31 | disposition home or self-care (01) ==
LOC: EDUNIT# 11:28 → ER 11:29
DX: F41.9 Anxiety disorder, unspecified (principal); Z77.22 Contact with and (suspected) exposure to environmental tobacco smoke (acute) (chronic)
CPT/HCPCS: 36415; 71045; 80048; 80306; 81000; 84484; 84703; 85027; 93005; 93041

== ENCOUNTER 2021-09-17 21:27 | Emergency (ER) | payer SELFPAY ==
[~2021-09-17] VITALS: Ht 162 cm; Wt 86.2 kg
[~2021-09-17 21:27] MED LIST changes: +HYDR50TA76 PO
--- NOTE | 2021-09-17 22:14 | ED Abdominal Pain ---
General Chief Complaint: General Problems/Pain Stated Complaint: STOMACH AND LEG PAINS, ANDERSON Nursing Triage Note: c/o lower abdominal cramping x1 year, leg cramping/headache x3 days. Source of Information: Patient Exam Limitations: No Limitations History of Present Illness Date Seen by Provider: Sep 17, 2021 Time Seen by Provider: 21:35 Initial Comments 21-year-old female with past medical history of anxiety coming in due to abdominal pain. She says she has had on and off abdominal pain for years with on and off nausea and nonbloody nonbilious vomiting for the similar amount of time. She says she is never really seen anyone for this before and has never had a work-up for it. Tonight it was worsening and is more sharp in her lower abdomen prompting her to come in. She took aspirin earlier which did not really help. LMP was a couple of days ago. Endorses some nonbloody diarrhea intermittently, no fever, chest pain, shortness of breath, weakness, numbness, vaginal bleeding, vaginal discharge, or any other concerns. Smokes marijuana daily. Allergies and Home Medications Allergies Coded Allergies: No Known Drug Allergies (Unverified , 11/16/17) Patient Home Medication List Home Medication List Reviewed: Yes Hydroxyzine HCl (Hydroxyzine HCl) 50 Mg Tablet, 50 MG PO Q8H PRN for ANXIETY Prescribed by: FRANCE BISHOP on 01/28/20 1325 Last Action: Reviewed Metoclopramide HCl (Metoclopramide HCl) 10 Mg Tablet, 10 MG PO Q6H PRN for NIRMALA SEA/VOMITING-1ST LINE Prescribed by: RIZWANA SMITH on 09/17/212301 Pantoprazole Sodium (Pantoprazole Sodium) 40 Mg Tablet.dr, 40 MG PO DAILY Prescribed by: RIZWANA SMITH on 09/17/21 2310 Review of Systems Review of Systems Constitutional: No chills, No fever EENTM: No Blurred Vision Respiratory: Denies Cough, Denies Shortness of Air Cardiovascular: Denies Chest Pain Gastrointestinal: Abdominal Pain, Diarrhea, Nausea Genitourinary: No Symptoms Reported Musculoskeletal: no symptoms reported Skin: no symptoms reported Psychiatric/Neurological: No Symptoms Reported Endocrine: No Symptoms Reported Hematologic/Lymphatic: No Symptoms Reported All Other Systems Reviewed Negative Unless Noted: Yes Past Tgmconk-Cselbp-Bfujkk Hx Patient Social History Tobacco Use?: No Substance use?: Yes Substance type: Marijuana Alcohol Use?: No Pt feels they are or have been: No Immunizations Up To Date Tetanus Booster (TDap): Unknown Seasonal Allergies Seasonal Allergies: No Past Medical History Surgery/Hospitalization HX: t/a, anxiety Surgeries: Yes (T&A A CHILD) Adenoidectomy, Tonsillectomy Respiratory: No Cardiac: No Neurological: No Reproductive Disorders: No Female Reproductive Disorders: Denies Sexually Transmitted Disease: Yes (HX OF CHLAMYDIA 2017, PREVIOUSLY TREATED) HIV/AIDS: No Genitourinary: No Gastrointestinal: No Musculoskeletal: No Endocrine: No HEENT: Yes (S/P T&A) Tonsilitis Cancer: No Psychosocial: Yes Sleep Difficulties, Anxiety Integumentary: No Blood Disorders: No Physical Exam Vital Signs Vital Signs - First Documented 09/17/21 21:59 Temp 36.1 Pulse 91 Resp 14 B/P (MAP) 99/69 (79) Pulse Ox 98 O2 Delivery Room Air Capillary Refill : Less Than 3 Seconds Height/Weight/BMI Height: 5'5.00" Weight: 160lbs. oz. 72.866783wx; 32.00 BMI Method:Stated General Appearance: WD/WN, no apparent distress HEENT: PERRL/EOMI, normal ENT inspection, pharynx normal Neck: non-tender, full range of motion, supple, normal inspection Respiratory: chest non-tender, lungs clear, normal breath sounds, no respiratory distress, no accessory muscle use Cardiovascular: regular rate, rhythm, no edema, no murmur Gastrointestinal: normal bowel sounds, soft; No distended, No guarding, No rebound; tenderness Extremities: normal range of motion, non-tender, normal inspection, no pedal edema, no calf tenderness, normal capillary refill Back: normal inspection, no CVA tenderness, no vertebral tenderness Neurologic/Psychiatric: no motor/sensory deficits, alert, normal mood/affect Skin: normal color, warm/dry Lymphatic: no adenopathy Progress/Results/Core Measures Results/Orders Lab Results Laboratory Tests Test 09/17/21 22:15 09/17/21 22:16 Range/Units Urine Color YELLOW Urine Clarity CLEAR Urine pH 7.5 5-9 Urine Specific [place] 1.020 1.016-1.022 Urine Protein TRACE H NEGATIVE Urine Glucose (UA) NEGATIVE NEGATIVE Urine Ketones TRACE H NEGATIVE Urine Nitrite NEGATIVE NEGATIVE Urine Bilirubin NEGATIVE NEGATIVE Urine Urobilinogen 1.0 < = 1.0 MG/DL Urine Leukocyte Esterase NEGATIVE NEGATIVE Urine RBC (Auto) 1+ H NEGATIVE Urine RBC 2-5 H /HPF Urine WBC NONE /HPF Urine Squamous Epithelial Cells 25-50 H /HPF Urine Crystals NONE /LPF Urine Bacteria FEW H /HPF Urine Casts NONE /LPF Urine Mucus MODERATE H /LPF Urine Culture Indicated NO White Blood Count 12.0 H 4.3-11.0 10^3/uL Red Blood Count 5.01 3.80-5.11 10^6/uL Hemoglobin 15.2 11.5-16.0 g/dL Hematocrit 44 35-52 % Mean Corpuscular Volume 87 80-99 fL Mean Corpuscular Hemoglobin 30 25-34 pg Mean Corpuscular Hemoglobin Concent 35 32-36 g/dL Red Cell Distribution Width 12.5 10.0-14.5 % Platelet Count 304 130-400 10^3/uL Mean Platelet Volume 9.6 9.0-12.2 fL Immature Granulocyte % (Auto) 0 % Neutrophils (%) (Auto) 62 42-75 % Lymphocytes (%) (Auto) 31 12-44 % Monocytes (%) (Auto) 5 0-12 % Eosinophils (%) (Auto) 1 0-10 % Basophils (%) (Auto) 0 0-10 % Neutrophils # (Auto) 7.5 1.8-7.8 10^3/uL Lymphocytes # (Auto) 3.7 1.0-4.0 10^3/uL Monocytes # (Auto) 0.6 0.0-1.0 10^3/uL Eosinophils # (Auto) 0.1 0.0-0.3 10^3/uL Basophils # (Auto) 0.0 0.0-0.1 10^3/uL Immature Granulocyte # (Auto) 0.0 0.0-0.1 10^3/uL Sodium Level 139 135-145 MMOL/L Potassium Level 3.5 L 3.6-5.0 MMOL/L Chloride Level 104 98-107 MMOL/L Carbon Dioxide Level 20 L 21-32 MMOL/L Anion Gap 15 H 5-14 MMOL/L Blood Urea Nitrogen 11 7-18 MG/DL Creatinine 0.83 0.60-1.30 MG/DL Estimat Glomerular Filtration Rate 102 BUN/Creatinine Ratio 13 Glucose Level 100 70-105 MG/DL Calcium Level 9.4 8.5-10.1 MG/DL Corrected Calcium 9.2 8.5-10.1 MG/DL Total Bilirubin 0.4 0.1-1.0 MG/DL Aspartate Amino Transf (AST/SGOT) 25 5-34 U/L Alanine Aminotransferase (ALT/SGPT) 33 0-55 U/L Alkaline Phosphatase 79 40-136 U/L Total Protein 7.5 6.4-8.2 GM/DL Albumin 4.2 3.2-4.5 GM/DL Lipase 32 8-78 U/L Serum Test, Qualitative NEGATIVE NEGATIVE My Orders Orders - RIZWANA SMITH MD Comprehensive Metabolic Panel (09/17/21 22:09) Lipase (09/17/21 22:09) Ua Culture If Indicated (09/17/21 22:09) Hcg,Qualitative Serum (09/17/21 22:09) Ed Iv/Invasive Line Start (09/17/21 22:09) Cbc With Automated Diff (09/17/21 22:09) Ct Abdomen/Pelvis W (09/17/21 22:09) Acetaminophen Tablet (Tylenol Tablet) (09/17/21 22:15) Ondansetron Injection (Zofran Injectio (09/17/21 22:15) Ketorolac Injection (Toradol Injection) (09/17/21 22:15) Antacid Suspension (Mylanta Suspension (09/17/21 23:15) Metoclopramide Injection (Reglan Injecti (09/17/21 23:15) Medications Given in ED Current Medications Medications Dose Ordered Sig/Camilo Route Start Time Stop Time Status Last Admin Dose Admin Acetaminophen 1,000 mg ONCE ONCE PO 09/17/21 22:15 09/17/21 22:16 DC 09/17/21 22:17 1,000 MG Ketorolac Tromethamine 15 mg ONCE ONCE IVP 09/17/21 22:15 09/17/21 22:16 DC 09/17/21 22:17 15 MG Ondansetron HCl 4 mg ONCE ONCE IVP 09/17/21 22:15 09/17/21 22:16 DC 09/17/21 22:17 4 MG Vital Signs/I&O 09/17/21 21:59 Temp 36.1 Pulse 91 Resp 14 B/P (MAP) 99/69 (79) Pulse Ox 98 O2 Delivery Room Air Blood Pressure Mean: 79 Progress Progress Note : Progress Note 21-year-old female with above history coming in for acute on chronic abdominal pain with nausea, vomiting, intermittent diarrhea. ABCs were intact and vitals were stable on presentation. Physical exam with some mild tenderness on abdomen but no signs of peritonitis. An IV was placed and basic labs were obtained. Armaan phelan is given Toradol, Tylenol, Zofran for pain and nausea. Labs reassuring with no focal abnormalities. She does have blood in her urine and a lot of squamous cells. She is having no urinary symptoms so would not treat her for urinary tract infection. CT with distended stomach and possible gastritis. We will give her some metoclopramide for potential gastroparesis as well as this will help with her headache that she chronically has. I discussed that this could be gastritis versus ulcer versus some other etiology. I will start her on a PPI and have her follow-up with one of our surgeons for potential scope and overall evaluation. I also discussed with the patient the possibility of cannabis hyperemesis given the labs and CT or reassuring. I discussed that she should abstain from cannabis use for about a month to see if she improves. I believe she is stable for discharge with outpatient follow-up. She was sent home with strict return precautions Diagnostic Imaging Diagonstic Imaging: CT (abd/pelv) Comments NAME: GURDEEP RENTERIA [facility] REC#: [id number] PT STATUS: REG ER : 2000 PHYSICIAN: RIZWANA SMITH MD ADMIT DATE: 09/17/21/ER Signed Date of Exam:09/17/21 CT ABDOMEN/PELVIS W EXAMINATION: CT abdomen and pelvis with intravenous contrast. TECHNIQUE: Multiple contiguous axial images were obtained through the abdomen and pelvis after the uneventful administration of intravenous contrast. All CT scans use one or more of the following dose optimizing techniques: automated exposure control, MA and/or KvP adjustment based on patient size and exam type or iterative reconstruction. HISTORY: Lower abdominal pain. COMPARISON: 12/30/2017. FINDINGS: The heart is unremarkable. The included lung bases are clear. The liver, spleen, pancreas, adrenal glands, and kidneys have a normal appearance. There is no pathologically enlarged mesenteric or retroperitoneal adenopathy. The stomach is distended with ingested contents. There is reflux in the lower esophagus. The bowel loops are nondilated. The appendix is visualized in the right lower quadrant and has a normal appearance. There is no free fluid or free air. No acute osseous abnormalities. Ureters and bladder are grossly normal. There is no free air, loculated collection, or adenopathy in the pelvis. IMPRESSION: 1. Distended stomach with ingested contents with reflux to the lower esophagus. Findings may represent gastritis. 2. Normal appendix. No evidence of bowel obstruction. No free fluid or free air. Dictated by: Dictated on workstation # [id number] Dict: 09/17/212254 Trans: 09/17/212302 [facility] [id number] Interpreted by: RYNE NAQVI DO Electronically signed by: RYNE NAQVI DO 09/17/212302 Departure Impression Primary Impression: Abdominal pain Qualified Codes: R10.84 - Generalized abdominal pain Additional Impressions: Nausea & vomiting Qualified Codes: R11.2 - Nausea with vomiting, unspecified Gastritis Qualified Codes: K29.00 - Acute gastritis without bleeding Disposition: HOME, SELF-CARE Condition: Stable Departure-Patient Inst. Decision time for Depature: 23:20 [place]: [facility] [place] Primary Care Physician VINCENT ARELLANO DO Patient Instructions: Cannabis Hyperemesis Syndrome, Gastritis (DC), Nausea and Vomiting, Adult ED Add. Discharge Instructions: Your labs look reassuring and your CT scan of your abdomen and pelvis are also reassuring other than your stomach was very full and you could be experiencing gastritis, which is related to GERD/too much acid. I will have you call Dr. Arellano's office to schedule an appointment for an evaluation as he is one of our stomach specialist. I sent metoclopromide to your pharmacy to help with nausea (also helps with headaches if you take benadryl with it) and pantoprazole for acid reduction. We do also see something called cannabis hyperemesis syndrome and people that smoke marijuana sometimes. This is something that is not well understood, but it causes severe abdominal pain, nausea, vomiting and people that smoke marijuana. I recommend taking a break for 2 to 4 weeks and see if your pain and nausea get better. If they do get better then this is the diagnosis. Scripts Pantoprazole Sodium (Pantoprazole Sodium) 40 Mg Tablet.dr 40 MG PO DAILY for 30 Days, #30 TAB Prov: RIZWANA SMITH MD 09/17/21 Metoclopramide HCl (Metoclopramide HCl) 10 Mg Tablet 10 MG PO Q6H PRN for NAUSEA/VOMITING-1ST LINE for 7 Days, #28 TAB Prov: RIZWANA SMITH MD 09/17/21 Work/School Note: Work Release Form Date Seen in the Emergency Department: Sep 17, 2021 Return to Work: Sep 19, 2021 Restrictions: No Restrictions RIZWANA SMITH MD Sep 17, 2021 22:13
[2021-09-17] MEDS ORDERED: ONDANSETRON 4 MG/2 ML (SDV) Z0FRAN IVP ONE (22:15)
[2021-09-17] MEDS ORDERED: KETOROLAC 30 MG/ML VIAL IVP ONE (22:15)
[2021-09-17] MEDS ORDERED: ACETAMINOPHEN 500 MG TAB (TYLENOL) PO ONE (22:15)
[2021-09-17 22:25] LABS: BILIRUBIN,URINE NEGATIVE (NEGATIVE); CLARITY,URINE CLEAR; COLOR,URINE YELLOW; GLUCOSE, URINE (UA) NEGATIVE (NEGATIVE); KETONES,URINE TRACE (NEGATIVE); LEUKOCYTE ESTERASE ,URINE NEGATIVE (NEGATIVE); NITRITE,URINE NEGATIVE (NEGATIVE); PH,URINE 7.5 (5-9); PROTEIN,URINE TRACE (NEGATIVE)
[2021-09-17 22:31] LABS: BASOPHILS % (AUTO) 0 % (0-10); EOSINOPHILS # (AUTO) 0.1 10^3/uL (0.0-0.3); EOSINOPHILS % (AUTO) 1 % (0-10); HEMATOCRIT 44 % (35-52); HEMOGLOBIN 15.2 g/dL (11.5-16.0); LYMPHOCYTES # (AUTO) 3.7 10^3/uL (1.0-4.0); LYMPHOCYTES % (AUTO) 31 % (12-44); MEAN CORPUSCULAR HEMOGLOBIN 30 pg (25-34); MEAN CORPUSCULAR HGB CONC 35 g/dL (32-36); MEAN CORPUSCULAR VOLUME 87 fL (80-99); MEAN PLATELET VOLUME 9.6 fL (9.0-12.2); MONOCYTES # (AUTO) 0.6 10^3/uL (0.0-1.0); MONOCYTES % (AUTO) 5 % (0-12); NEUTROPHILS # (AUTO) 7.5 10^3/uL (1.8-7.8); NEUTROPHILS % (AUTO) 62 % (42-75); PLATELET COUNT 304 10^3/uL (130-400)
[2021-09-17 22:38] LABS: BACTERIA,URINE FEW /HPF; SQUAMOUS EPITHELIAL CELL,UR 25-50 /HPF
[2021-09-17 22:47] LABS: ALBUMIN 4.2 GM/DL (3.2-4.5); POTASSIUM 3.5 MMOL/L (3.6-5.0)
[2021-09-17 22:48] LABS: CALCIUM 9.4 MG/DL (8.5-10.1)
[2021-09-17 22:49] LABS: TOTAL PROTEIN 7.5 GM/DL (6.4-8.2)
[2021-09-17 22:51] LABS: BILIRUBIN,TOTAL 0.4 MG/DL (0.1-1.0)
[2021-09-17 22:53] LABS: CREATININE SERUM 0.83 MG/DL (0.60-1.30)
[2021-09-17] MEDS ORDERED: MTC10T PO (23:02)
--- NOTE | 2021-09-17 23:03 | Diagnostic Imaging Report ---
EXAMINATION: CT abdomen and pelvis with intravenous contrast. TECHNIQUE: Multiple contiguous axial images were obtained through the abdomen and pelvis after the uneventful administration of intravenous contrast. All CT scans use one or more of the following dose optimizing techniques: automated exposure control, MA and/or KvP adjustment based on patient size and exam type or iterative reconstruction. HISTORY: Lower abdominal pain. COMPARISON: 12/30/2017. FINDINGS: The heart is unremarkable. The included lung bases are clear. The liver, spleen, pancreas, adrenal glands, and kidneys have a normal appearance. There is no pathologically enlarged mesenteric or retroperitoneal adenopathy. The stomach is distended with ingested contents. There is reflux in the lower esophagus. The bowel loops are nondilated. The appendix is visualized in the right lower quadrant and has a normal appearance. There is no free fluid or free air. No acute osseous abnormalities. Ureters and bladder are grossly normal. There is no free air, loculated collection, or adenopathy in the pelvis. IMPRESSION: 1. Distended stomach with ingested contents with reflux to the lower esophagus. Findings may represent gastritis. 2. Normal appendix. No evidence of bowel obstruction. No free fluid or free air. Dictated by: Dictated on workstation # [id number]
[2021-09-17] MEDS ORDERED: PANT40TA52 PO (23:10)
[2021-09-17] MEDS ORDERED: ANTACID SUSP 30 ML UDC (MYLANTA) PO ONE (23:15)
[2021-09-17] MEDS ORDERED: METOCLOPRAMIDE INJ 10 MG/2 ML (REGLAN) IVP ONE (23:15)
[2021-09-17 23:19] VITALS: BP 102/71
[2021-09-17] MEDS ORDERED: NS 100 ML (IVPB) BAG IV ONE (23:45)
[2021-09-17] MEDS ORDERED: IOHEXOL 350 MG/ML 100 ML (OMNIPAQUE 350) VIAL IV ONE (23:45)
[2021-09-17] MEDS ORDERED: HOLD METFORMIN - RECEIVED CONTRAST 20 ML VIAL IV SCH (23:45)
== END 2021-09-17 23:20 | disposition home or self-care (01) ==
LOC: EDUNIT# 21:27 → ER 21:31
DX: K29.70 Gastritis, unspecified, without bleeding (principal)
CPT/HCPCS: 36415; 74177; 80053; 81000; 83690; 84703; 85025

== ENCOUNTER 2021-12-19 15:52 | Emergency (ER) | payer OTHER ==
[~2021-12-19] VITALS: Ht 165 cm; Wt 82.0 kg
[~2021-12-19 15:52] MED LIST changes: +MTC10T PO; +PANT40TA52 PO
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
[2021-12-19] MEDS ORDERED: NS 100 ML (IVPB) BAG IV ONE (16:15)
[2021-12-19] MEDS ORDERED: CATHETER FLUSH 10 ML SYR IV PRN (16:15)
[2021-12-19] MEDS ORDERED: IOHEXOL 350 MG/ML 100 ML (OMNIPAQUE 350) VIAL IV ONE (16:15)
[2021-12-19] MEDS ORDERED: HOLD METFORMIN - RECEIVED CONTRAST 20 ML VIAL IV SCH (16:15)
[2021-12-19 16:23] LABS: BASOPHILS % (AUTO) 0 % (0-10); EOSINOPHILS # (AUTO) 0.1 10^3/uL (0.0-0.3); EOSINOPHILS % (AUTO) 1 % (0-10); HEMATOCRIT 40 % (35-52); HEMOGLOBIN 13.7 g/dL (11.5-16.0); LYMPHOCYTES # (AUTO) 3.3 10^3/uL (1.0-4.0); LYMPHOCYTES % (AUTO) 34 % (12-44); MEAN CORPUSCULAR HEMOGLOBIN 31 pg (25-34); MEAN CORPUSCULAR HGB CONC 34 g/dL (32-36); MEAN CORPUSCULAR VOLUME 89 fL (80-99); MEAN PLATELET VOLUME 9.7 fL (9.0-12.2); MONOCYTES # (AUTO) 0.6 10^3/uL (0.0-1.0); MONOCYTES % (AUTO) 7 % (0-12); NEUTROPHILS # (AUTO) 5.6 10^3/uL (1.8-7.8); NEUTROPHILS % (AUTO) 58 % (42-75); PLATELET COUNT 246 10^3/uL (130-400); WHITE BLOOD COUNT 9.6 10^3/uL (4.3-11.0)
[2021-12-19 16:46] LABS: PROTHROMBIN TIME PATIENT 13.6 SEC (12.2-14.7)
--- NOTE | 2021-12-19 16:46 | Diagnostic Imaging Report ---
Procedure: CT chest, abdomen, and pelvis with contrast. Technique: Multiple contiguous axial images were obtained through the chest, abdomen, and pelvis after the administration of intravenous contrast. Auto Exposure Controls were utilized during the CT exam to meet ALARA standards for radiation dose reduction. Indication: Right-sided chest and abdominal pain. Comparison: CT of the abdomen and pelvis 09/17/2021. Discussion: Chest: 4 mm nodule within the right middle lobe. 3 mm and 4 mm nodules within the right lower lobe. 2 mm, 3 mm, and 3 mm nodules within the left lower lobe. Follow-up by the Fleischner criteria is recommended. No focal consolidation or bronchiectasis. The thoracic aorta is normal in caliber and configuration. Pulmonary arteries are unremarkable. Normal heart size. No adenopathy. No acute osseous abnormality identified. Abdomen/pelvis: Probable focal fatty infiltration along the falciform ligament. Otherwise the liver, gallbladder, pancreas, stomach, spleen and adrenal glands are unremarkable. No renal stone or hydronephrosis. Uterus and urinary bladder are unremarkable. Suspect normal follicular activity within the right ovary. The appendix is normal. No obstruction, pneumatosis or pneumoperitoneum. The colon is somewhat thick-walled though this is likely due to lack of distention. No surrounding inflammatory change is identified. No ascites or adenopathy. No osseous abnormality. Impression: 1. No acute abnormality within the chest, abdomen or pelvis. 2. 3-4 mm nodules within the lungs, as described, likely benign though recommend follow-up by the Fleischner criteria. Dictated by: Dictated on workstation # [id number]
--- NOTE | 2021-12-19 16:50 | Diagnostic Imaging Report ---
Indication: Right elbow pain. Comparison: None. Discussion: Three views of the right elbow were obtained. No acute fracture, dislocation or other osseous abnormality identified. No significant degenerative disease. Alignment is anatomic. Soft tissues are unremarkable. No effusion. Impression: Negative right elbow. Dictated by: Dictated on workstation # [id number]
[2021-12-19 16:57] LABS: ALBUMIN 4.1 GM/DL (3.2-4.5); POTASSIUM 3.8 MMOL/L (3.6-5.0)
[2021-12-19 16:58] LABS: CALCIUM 9.2 MG/DL (8.5-10.1)
[2021-12-19 17:00] LABS: TOTAL PROTEIN 6.8 GM/DL (6.4-8.2)
[2021-12-19 17:01] LABS: BILIRUBIN,TOTAL 0.6 MG/DL (0.1-1.0)
[2021-12-19 17:03] LABS: CREATININE SERUM 0.83 MG/DL (0.60-1.30)
[2021-12-19] MEDS ORDERED: CYCL10TA25 PO (17:03)
[2021-12-19] MEDS ORDERED: KETOROLAC 30 MG/ML VIAL IVP ONE (17:15)
[2021-12-19] MEDS ORDERED: ORPHENADRINE 60 MG/2 ML (NORFLEX) AMP (ED ONLY) IM ONE (17:15)
[2021-12-19 17:22] VITALS: BP 110/70
== END 2021-12-19 17:23 | disposition home or self-care (01) ==
LOC: EDUNIT# 15:52 → ER 15:56
DX: S50.01XA Contusion of right elbow, initial encounter (principal); R07.81 Pleurodynia; R10.11 Right upper quadrant pain; V47.5XXA Car driver injured in collision with fixed or stationary object in traffic accident, initial encounter
CPT/HCPCS: 71260; 73080; 74177; 80053; 84703; 85025; 85610; 85730; 99284; A4565; 36415